=== PATIENT | male | born 1945 | race Caucasian/White ===

== ENCOUNTER 2016-04-13 10:24 | Emergency (ER) | payer MEDICAID, MEDICARE ==
[2016-04-13] VITALS (8 sets, daily range): BP systolic 96–139; BP diastolic 55–70; PULSE 51–92; RESP 15–26; TEMP 97.4; O2SAT 94–95
[~2016-04-13] VITALS: Ht 170.2 cm; Wt 65.0 kg
[~2016-04-13 10:24] MED LIST: ALBU1AER INH; ASPI81TA82 PO; BUSP10 PO; BUSP15TA PO; CALCTAB75 PO; CARV6.252 PO; DONE5TAB14 PO; HYDR50 PO; LEVO50TA48 PO; LORA-392 PO; MAGN400T PO; MELA3CAP2 PO; NALT50TA PO; PAXI30TA7 PO; REFR0.5D4 EACH EYE; SERO100T PO; SERO50TA PO; SIMV80TA PO; SPIR25 PO; TRAZ100T50 PO
[2016-04-13 10:44] LABS: MEAN CORPUSCULAR HGB CONC 36.1 % (32.0-36.0)
[2016-04-13] MEDS ORDERED: SODIUM CHLORIDE 0.9% FLUSH 5 ML FLUSH IVF PRN (10:45)
[2016-04-13] MEDS ORDERED: SODIUM CHLOR 0.9% 1000 ML INJ 1,000 ML IV ONE (10:45)
--- NOTE | 2016-04-13 10:51 | PD ---
HPI Chief Complaint: Syncope/Near-Syncope Time Seen by Provider: 10:30 Travel History International Travel<30 days: No Contact w/Intl Traveler<30days: No Traveled to known affect area: No History of Present Illness HPI This is a 70-year-old male who has a history of schizophrenia, COPD and prior CABG who presents to the emergency department having had an episode of syncope. Patient was reportedly standing with staff members at his a left this morning when he passed out. His caregiver reports that he was cool and clammy and appeared travis. The patient denies any chest pain or trouble breathing prior to the episode. He says he still feels lightheaded and dizzy. He says he's been feeling well up until today. He says this is never happened to him before. PFSH Past Medical History Hx Anticoagulant Therapy: Yes (ASPIRIN 81 MG ) Atrial Fibrillation: Yes Anxiety: Yes Depression: Yes Cardiac Catheterization: Yes Cardiovascular Problems: Yes (HTN) High Cholesterol: Yes Congestive Heart Failure: Yes COPD: Yes Coronary Artery Disease: Yes Dementia: Yes Diminished Hearing: No Gastrointestinal Disorders: Yes GERD: Yes Genitourinary: No Hepatitis: Yes Hypertension: Yes Implanted Vascular Access Dvce: No Musculoskeletal: No Neurologic: Yes (SHORT TERM MEMORY LOSS) Psychiatric: Yes (PTSD) Respiratory: Yes (HX OF FAILURE) Myocardial Infarction: Yes Schizophrenia: Yes Thyroid Disease: Yes (HYPO) Tetanus Vaccination: Unknown Influenza Vaccination: No Past Surgical History Cardiac Surgery: Yes (2009) Coronary Artery Bypass Graft: Yes (2009) Tonsillectomy: Yes Other Surgery: Yes (RIGHT HAND 5TH DIGIT AMPUTATED S/P INJURY WITH A CHAINSAW.) Social History Alcohol Use: No Tobacco Use: Yes (1/2 CIGS A DAY) Substance Use: No (LONG HX OF HUFFING) Allergies-Medications (Allergen,Severity, Reaction): Coded Allergies: Bee Sting (Verified Allergy, Unknown, 08/23/12) Reported Meds & Prescriptions Reported Meds & Active Scripts Active Reported Levothyroxine (Levothyroxine Sodium) 25 Mcg Tab 25 Mcg PO DAILY Naltrexone (Naltrexone HCl) 50 Mg Tab 50 Mg PO DAILY Ditropan (Oxybutynin Chloride) 5 Mg Tab 10 Mg PO HS Aldactone (Spironolactone) 25 Mg Tab 25 Mg PO DAILY Vistaril (Hydroxyzine Pamoate) 50 Mg Cap 50 Mg PO QID PRN Atorvastatin (Atorvastatin Calcium) 40 Mg Tab 40 Mg PO HS Colace (Docusate Sodium) 100 Mg Cap 100 Mg PO HS Risperidone 0.25 Mg Tab 0.125 Mg PO DAILY Mirtazapine 30 Mg Tab 30 Mg PO HS Risperidone 1 Mg Tab 1 Mg PO HS Donepezil 10 Mg Tab 10 Mg PO HS Trazodone (Trazodone HCl) 50 Mg Tab 50 Mg PO HS Carvedilol 3.125 Mg Tab 3.125 Mg PO BID Calcium 600 + D (Calcium Carbonate-Vitamin D) 600-400 Mg-Unit Tab 1 Tab PO BID Aspir-81 (Aspirin) 81 Mg Tabdr 81 Mg PO DAILY Proair Hfa 8.5 GM Inh (Albuterol Sulfate) 90 Mcg/Act Aer 2 Puff INH QID PRN 108 mcg/actuation Review of Systems Except as stated in HPI: all other systems reviewed are Neg Physical Exam Narrative GENERAL:Well appearing, no acute distress SKIN: Warm and dry. HEAD: Atraumatic. Normocephalic. EYES: Pupils equal and round. No injection or drainage. ENT: Moist mucous membranes NECK: Trachea midline. CARDIOVASCULAR: Regular rate and rhythm. No murmur appreciated. Midline sternotomy scar. RESPIRATORY: Clear to auscultation. Breath sounds equal bilaterally. GASTROINTESTINAL: Abdomen soft, non-tender, nondistended. MUSCULOSKELETAL: No obvious deformities. NEUROLOGICAL: Awake and alert. No obvious cranial nerve deficits. Moving all extremities. PSYCHIATRIC: Appropriate mood and affect; insight and judgment normal. Data Data Last Documented VS Vital Signs Date Time Temp Pulse Resp B/P Pulse Ox O2 Delivery O2 Flow Rate FiO2 04/13/16 10:35 Room Air 04/13/16 10:31 97.4 51 26 105/68 95 Orders Electrocardiogram (04/13/16 10:43) Complete Blood Count With Diff (04/13/16 10:43) Comprehensive Metabolic Panel (04/13/16 10:43) Troponin I (04/13/16 10:43) Urinalysis - C+S If Indicated (04/13/16 10:43) Ecg Monitoring (04/13/16 10:43) Iv Access Insert/Monitor (04/13/16 10:43) Oximetry (04/13/16 10:43) Sodium Chloride 0.9% Flush (Ns Flush) (04/13/16 10:45) D-Dimer (04/13/16 10:43) Cath For Specimen (04/13/16 10:43) Sodium Chlor 0.9% 1000 Ml Inj (Ns 1000 M (04/13/16 10:45) Urine Culture (04/13/16 12:00) Labs Laboratory Tests Test 04/13/16 04/13/16 04/13/16 11:30 12:00 15:58 White Blood Count 9.4 TH/MM3 Red Blood Count 5.30 MIL/MM3 Hemoglobin 16.9 GM/DL Hematocrit 46.8 % Mean Corpuscular Volume 88.3 FL Mean Corpuscular Hemoglobin 31.9 PG Mean Corpuscular Hemoglobin 36.1 % Concent Red Cell Distribution Width 13.6 % Platelet Count 288 TH/MM3 Mean Platelet Volume 8.2 FL Neutrophils (%) (Auto) 74.2 % Lymphocytes (%) (Auto) 12.7 % Monocytes (%) (Auto) 8.2 % Eosinophils (%) (Auto) 4.5 % Basophils (%) (Auto) 0.4 % Neutrophils # (Auto) 6.9 TH/MM3 Lymphocytes # (Auto) 1.2 TH/MM3 Monocytes # (Auto) 0.8 TH/MM3 Eosinophils # (Auto) 0.4 TH/MM3 Basophils # (Auto) 0.0 TH/MM3 CBC Comment AUTO DIFF Differential Comment AUTO DIFF CONFIRMED Platelet Estimate NORMAL Platelet Morphology Comment NORMAL Red Cell Morphology Comment NORMAL D-Dimer Quantitative (PE/DVT) 0.31 MG/L FEU Urine Color YELLOW Urine Turbidity HAZY Urine pH 6.5 Urine Specific Morrison 1.024 Urine Protein 100 mg/dL Urine Glucose (UA) TRACE mg/dL Urine Ketones NEG mg/dL Urine Occult Blood NEG Urine Nitrite NEG Urine Bilirubin NEG Urine Urobilinogen 2.0 MG/DL Urine Leukocyte Esterase NEG Urine RBC 2 /hpf Urine WBC 4 /hpf Urine WBC Clumps RARE Urine Squamous Epithelial 1 /hpf Cells Urine Renal Epithelial Cells 1 /hpf Urine Bacteria FEW /hpf Urine Hyaline Casts 69 /lpf Urine Mucus MANY /lpf Microscopic Urinalysis Comment CULTURE INDICATED Sodium Level 140 MEQ/L Potassium Level 4.3 MEQ/L Chloride Level 108 MEQ/L Carbon Dioxide Level 25.7 MEQ/L Anion Gap 6 MEQ/L Blood Urea Nitrogen 20 MG/DL Creatinine 1.01 MG/DL Estimat Glomerular Filtration 73 ML/MIN Rate Random Glucose 137 MG/DL Calcium Level 8.8 MG/DL Total Bilirubin 0.6 MG/DL Aspartate Amino Transf 23 U/L (AST/SGOT) Alanine Aminotransferase 34 U/L (ALT/SGPT) Alkaline Phosphatase 75 U/L Troponin I LESS THAN 0.02 NG/ML Total Protein 6.3 GM/DL Albumin 3.1 GM/DL MDM Medical Decision Making Medical Screen Exam Complete: Yes Emergency Medical Condition: Yes Interpretation(s) Afebrile EKG: nsr, low qrs voltage, t wave inversions in the inferior and lateral leads similar to ekg from 2013 no leukocytosis electrolytes within normal limits troponin normal d-dimer .31 urinalysis: no infection Differential Diagnosis Arrhythmia, acute coronary syndrome, pulmonary embolism, electrolyte abnormality , dehydration Narrative Course This is a 70-year-old male who presents to the emergency department having had an episode of syncope earlier today. He was placed on a monitor and an IV was established. Labs were obtained which were all reassuring. EKG is similar to prior from 2013. Troponin is negative. Patient has normal baseline neurologic exam. I don't think the patient requires admission for syncope and I think he' s safe for discharge and follow-up with an outpatient primary care physician. Diagnosis Primary Impression: Syncope Qualified Code: R55 - Syncope, unspecified syncope type Patient Instructions: General Instructions Additional Instructions: If you develop severe chest pain, shortness of breath, sweating, lightheadedness , dizziness or difficulty breathing return to the emergency department immediately. Followup with your primary care physician in 2-3 days if your symptoms are not resolved. Med/Other Pt SpecificInfo: No Change to Meds Disposition: 01 DISCHARGE HOME Condition: Stable Ariana Navarro MD Apr 13, 2016 10:51
[2016-04-13 11:46] LABS: AUTOMATED NEUTROPHIL # 6.9 TH/MM3 (1.8-7.7); BASOPHIL % 0.4 % (0.0-2.0); EOSINOPHIL # 0.4 TH/MM3 (0-0.4); EOSINOPHIL % 4.5 % (0.0-4.0); HEMATOCRIT 46.8 % (39.0-51.0); LYMPH % 12.7 % (9.0-44.0); LYMPHOCYTE # 1.2 TH/MM3 (1.0-4.8); MEAN CELL VOLUME 88.3 FL (80.0-100.0); MEAN CORPUSCULAR HEMOGLOBIN 31.9 PG (27.0-34.0); MONO % 8.2 % (0.0-8.0); NEUT % 74.2 % (16.0-70.0); PLATELET COUNT 288 TH/MM3 (150-450); RED CELL DISTRIBUTION WIDTH 13.6 % (11.6-17.2); WHITE BLOOD COUNT 9.4 TH/MM3 (4.0-11.0)
[2016-04-13 11:47] LABS: HEMO FLAGS AUTO DIFF
[2016-04-13 12:22] LABS: BACTERIA, URINE FEW /hpf; BLOOD, URINE NEG (NEG); GLUCOSE,URINE TRACE mg/dL (NEG); HYALINE CAST, URINE 69 /lpf (RARE); KETONE, URINE NEG (NEG); MUCUS URINE MANY /lpf (OCC); NITRITE,URINE NEG (NEG); PH, URINE 6.5 (5.0-8.5); RENAL EPITHELIAL CELLS 1 /hpf; SQUAMOUS EPITHELIAL CELL URINE 1 /hpf (0-5); URINE COLOR YELLOW (YELLW/STRAW)
[2016-04-13 12:23] LABS: COMMENT (UR) CULTURE INDICATED; CULTURE IF INDICATED CULTURE INDICATED
[2016-04-13 12:29] LABS: PLATELET ESTIMATE SMEAR NORMAL (NORMAL)
[2016-04-13 12:30] LABS: PLATELET MORPHOLOGY NORMAL (NORMAL); SCAN/DIFF AUTO DIFF CONFIRMED
[2016-04-13] MEDS ORDERED: DONE10TA7 PO (13:06)
[2016-04-13] MEDS ORDERED: ATOR40TA16 PO (13:06)
[2016-04-13] MEDS ORDERED: NALT50TA3 PO (13:06)
[2016-04-13] MEDS ORDERED: OXYB5TAB10 PO (13:06)
[2016-04-13] MEDS ORDERED: RISP1TAB2 PO (13:06)
[2016-04-13] MEDS ORDERED: CARV3.12 PO (13:06)
[2016-04-13] MEDS ORDERED: ASPI81TA81 PO (13:06)
[2016-04-13] MEDS ORDERED: VIST50CA PO (13:06)
[2016-04-13] MEDS ORDERED: MIRT30TA PO (13:06)
[2016-04-13] MEDS ORDERED: RISP0.252 PO (13:06)
[2016-04-13] MEDS ORDERED: COLA100C3 PO (13:06)
[2016-04-13] MEDS ORDERED: CALCTAB70 PO (13:06)
[2016-04-13] MEDS ORDERED: TRAZ50TA12 PO (13:06)
[2016-04-13] MEDS ORDERED: ALBUAER3 INH (13:06)
[2016-04-13] MEDS ORDERED: SPIR25 PO (13:06)
[2016-04-13] MEDS ORDERED: LEVO25TA4 PO (13:07)
[2016-04-13 16:42] LABS: ANION GAP 6 MEQ/L (5-15); AST (GOT) 23 U/L (15-37); BICARBONATE 25.7 MEQ/L (21.0-32.0); BLOOD UREA NITROGEN 20 MG/DL (7-18); CHLORIDE 108 MEQ/L (98-107); GLOMERULAR FILTRATION RATE 73 ML/MIN (>89); POTASSIUM 4.3 MEQ/L (3.5-5.1); SODIUM (NA) 140 MEQ/L (136-145)
[2016-04-13 16:46] LABS: ALKALINE PHOSPHATASE 75 U/L (45-117); ALT (GPT) 34 U/L (12-78); TOTAL BILIRUBIN ADULT 0.6 MG/DL (0.2-1.0)
--- NOTE | 2016-04-14 20:50 | EKG ---
Date Performed: 04/13/2016 Time Performed: 11:39:54 PTAGE: 70 years EKG: Sinus rhythm LOW QRS VOLTAGE IN PRECORDIAL LEADS SEPTAL MYOCARDIAL INFARCTION DIFFUSE ST-T ABNORMALITY ABNORMAL E CG PREVIOUS TRACING : 08/23/2012 13.32 Compared to prior tracing no significant change DOCTOR: Aishwarya Edge Interpretating Date/Time 04/14/2016 20:48:59
== END 2016-04-13 18:25 | disposition home or self-care (01) ==
LOC: NEPC 10:24
DX: R55 Syncope and collapse (principal); R94.31 Abnormal electrocardiogram [ECG] [EKG]; I48.91 Unspecified atrial fibrillation; I10 Essential (primary) hypertension; E78.00 Pure hypercholesterolemia, unspecified; R82.90 Unspecified abnormal findings in urine; I50.9 Heart failure, unspecified; Z72.0 Tobacco use; Z79.01 Long term (current) use of anticoagulants
CPT/HCPCS: 80053; 81001; 84484; 85025; 85379; 87086; 93005; 96360; 99284; J7030; P9612

== ENCOUNTER 2016-09-22 14:49 | Emergency (ER) | payer MEDICARE ==
[~2016-09-22] VITALS: Ht 170.2 cm; Wt 70.0 kg
[~2016-09-22 14:49] MED LIST changes: -ALBU1AER INH; +ALBUAER3 INH; +ASPI81TA81 PO; -ASPI81TA82 PO; +ATOR40TA16 PO; -BUSP10 PO; -BUSP15TA PO; +CALCTAB70 PO; -CALCTAB75 PO; +CARV3.12 PO; -CARV6.252 PO; +COLA100C3 PO; +DONE10TA7 PO; -DONE5TAB14 PO; -HYDR50 PO; +LEVO25TA4 PO; -LEVO50TA48 PO; -LORA-392 PO; -MAGN400T PO; -MELA3CAP2 PO; +MIRT30TA PO; -NALT50TA PO; +NALT50TA3 PO; +OXYB5TAB10 PO; -PAXI30TA7 PO; -REFR0.5D4 EACH EYE; +RISP0.252 PO; +RISP1TAB2 PO; -SERO100T PO; -SERO50TA PO; -SIMV80TA PO; -TRAZ100T50 PO; +TRAZ50TA12 PO; +VIST50CA PO
[2016-09-22 14:51] VITALS: BP 144/80; PULSE 65; RESP 19; TEMP 97.8; O2SAT 97
--- NOTE | 2016-09-22 14:59 | PD ---
Physical Exam Date Seen by Provider: Sep 22, 2016 Time Seen by Provider: 14:57 Narrative 70 yo male that presents to the ED for evaluation of shortness of breath. No history of respiratory disease. SOB since 1 pm. Nothing makes it better other than rest. Worst with excertion. Vitals are stable in triage. Awaiting bed placement. Data Data Last Documented VS Vital Signs Date Time Temp Pulse Resp B/P Pulse Ox O2 Delivery O2 Flow Rate FiO2 09/22/16 14:51 97.8 65 19 144/80 97 MDM Medical Record Reviewed: Yes Supervised Visit with DANICA: Alonso Barros Sep 22, 2016 14:59
--- NOTE | 2016-09-22 15:17 | PD ---
HPI Chief Complaint: Respiratory Symptoms Time Seen by Provider: 15:17 Travel History International Travel<30 days: No Contact w/Intl Traveler<30days: No Traveled to known affect area: No History of Present Illness HPI 70-year-old male with history of dementia, CHF, CAD, CABG, A. fib, COPD, schizophrenia, presents to the emergency department today with his caregiver for evaluation shortness of breath. Patient offers a poor history. She denies pain. His caregiver says around 1:00 today he began reporting shortness of breath and "gasping." Currently patient is asymptomatic. Denies any pain. She states patient has been overall well. He takes his medication as prescribed. She states there are no other symptoms or concerns at this time. PFSH Past Medical History Hx Anticoagulant Therapy: Yes (ASPIRIN 81 MG ) Atrial Fibrillation: Yes Anxiety: Yes Depression: Yes Cardiac Catheterization: Yes Cardiovascular Problems: Yes High Cholesterol: Yes Congestive Heart Failure: Yes COPD: Yes Coronary Artery Disease: Yes Dementia: Yes Diminished Hearing: No Gastrointestinal Disorders: Yes GERD: Yes Genitourinary: No Hepatitis: Yes Hypertension: Yes Implanted Vascular Access Dvce: No Musculoskeletal: No Neurologic: Yes (SHORT TERM MEMORY LOSS) Psychiatric: Yes (PTSD) Respiratory: Yes (HX OF FAILURE) Myocardial Infarction: Yes Schizophrenia: Yes Thyroid Disease: Yes (HYPO) Past Surgical History Cardiac Surgery: Yes (2009) Coronary Artery Bypass Graft: Yes (2009) Tonsillectomy: Yes Other Surgery: Yes (RIGHT HAND 5TH DIGIT AMPUTATED S/P INJURY WITH A CHAINSAW.) Social History Alcohol Use: No Tobacco Use: Yes (1/2 CIGS A DAY) Substance Use: No (LONG HX OF HUFFING) Allergies-Medications (Allergen,Severity, Reaction): Coded Allergies: Bee Sting (Verified Allergy, Unknown, 08/23/12) Reported Meds & Prescriptions Reported Meds & Active Scripts Active Nebulizer/Adult Mask (N/A) 1 Kit Kit 1 Kit .ROUTE DIRECTED Duoneb (Ipratropium-Albuterol Neb) 0.5-2.5 Mg/3 Ml Neb 1 Nebule INH Q6HR NEB Doxycycline Hyclate 100 Mg Cap 100 Mg PO BID Prednisone 50 Mg Tab 50 Mg PO DAILY 5 Days Reported Levothyroxine (Levothyroxine Sodium) 25 Mcg Tab 25 Mcg PO DAILY Naltrexone (Naltrexone HCl) 50 Mg Tab 50 Mg PO DAILY Ditropan (Oxybutynin Chloride) 5 Mg Tab 10 Mg PO HS Aldactone (Spironolactone) 25 Mg Tab 25 Mg PO DAILY Vistaril (Hydroxyzine Pamoate) 50 Mg Cap 50 Mg PO QID PRN Atorvastatin (Atorvastatin Calcium) 40 Mg Tab 40 Mg PO HS Colace (Docusate Sodium) 100 Mg Cap 100 Mg PO HS Risperidone 0.25 Mg Tab 0.125 Mg PO DAILY Mirtazapine 30 Mg Tab 30 Mg PO HS Risperidone 1 Mg Tab 1 Mg PO HS Donepezil 10 Mg Tab 10 Mg PO HS Trazodone (Trazodone HCl) 50 Mg Tab 50 Mg PO HS Carvedilol 3.125 Mg Tab 3.125 Mg PO BID Calcium 600 + D (Calcium Carbonate-Vitamin D) 600-400 Mg-Unit Tab 1 Tab PO BID Aspir-81 (Aspirin) 81 Mg Tabdr 81 Mg PO DAILY Proair Hfa 8.5 GM Inh (Albuterol Sulfate) 90 Mcg/Act Aer 2 Puff INH QID PRN 108 mcg/actuation Review of Systems ROS Limitations: Poor Historian Except as stated in HPI: all other systems reviewed are Neg Physical Exam Exam Limitations: Poor Historian Narrative GENERAL: Well-nourished male patient, lying in bed, in no acute distress SKIN: Focused skin assessment warm/dry. HEAD: Atraumatic. Normocephalic. EYES: Pupils equal and round. No scleral icterus. No injection or drainage. ENT: No nasal bleeding or discharge. Mucous membranes pink and moist. NECK: Trachea midline. No JVD. CARDIOVASCULAR: Regular rate and rhythm. No murmur appreciated. RESPIRATORY: No accessory muscle use. Diminished to auscultation. Breath sounds equal bilaterally. GASTROINTESTINAL: Abdomen soft, non-tender, nondistended. Hepatic and splenic margins not palpable. MUSCULOSKELETAL: No obvious deformities. No clubbing. No cyanosis. No edema. NEUROLOGICAL: Awake and alert. Moves all extremities. Speech is difficult to understand. Data Data Last Documented VS Vital Signs Date Time Temp Pulse Resp B/P Pulse Ox O2 Delivery O2 Flow Rate FiO2 09/22/16 17:01 68 18 122/70 97 Room Air 09/22/16 14:51 97.8 Orders Complete Blood Count With Diff (09/22/16 15:23) Basic Metabolic Panel (Bmp) (09/22/16 15:23) B-Type Natriuretic Peptide (09/22/16 15:23) D-Dimer (09/22/16 15:23) Act Partial Throm Time (Ptt) (09/22/16 15:23) Prothrombin Time / Inr (Pt) (09/22/16 15:23) Ckmb (Isoenzyme) Profile (09/22/16 15:23) Troponin I (09/22/16 15:23) Urinalysis - C+S If Indicated (09/22/16 15:23) Iv Access Insert/Monitor (09/22/16 15:23) Electrocardiogram (09/22/16 15:23) Ecg Monitoring (09/22/16 15:23) Oximetry (09/22/16 15:23) Oxygen Administration (09/22/16 15:23) Chest, Single Ap (09/22/16 15:23) Sodium Chloride 0.9% Flush (Ns Flush) (09/22/16 15:30) Methylprednisolone So Succ Inj (Solumedr (09/22/16 15:30) Albuterol-Ipratropium Neb (Duoneb Neb) (09/22/16 15:30) Vascular Access Team Consult/P PRN (09/22/16 16:09) Vascular Poc Ultrasound (09/22/16 ) CKMB (09/22/16 16:15) CKMB% (09/22/16 16:15) Ct Pulmonary Angiogram (09/22/16 ) Iohexol 350 Inj (Omnipaque 350 Inj) (09/22/16 18:13) Labs Laboratory Tests Test 09/22/16 16:15 White Blood Count 9.8 TH/MM3 Red Blood Count 5.47 MIL/MM3 Hemoglobin 16.3 GM/DL Hematocrit 47.4 % Mean Corpuscular Volume 86.6 FL Mean Corpuscular Hemoglobin 29.8 PG Mean Corpuscular Hemoglobin 34.4 % Concent Red Cell Distribution Width 13.8 % Platelet Count 282 TH/MM3 Mean Platelet Volume 8.4 FL Neutrophils (%) (Auto) 56.9 % Lymphocytes (%) (Auto) 27.0 % Monocytes (%) (Auto) 10.9 % Eosinophils (%) (Auto) 4.4 % Basophils (%) (Auto) 0.8 % Neutrophils # (Auto) 5.6 TH/MM3 Lymphocytes # (Auto) 2.6 TH/MM3 Monocytes # (Auto) 1.1 TH/MM3 Eosinophils # (Auto) 0.4 TH/MM3 Basophils # (Auto) 0.1 TH/MM3 CBC Comment DIFF FINAL Differential Comment Prothrombin Time 11.4 SEC Prothromb Time International 1.0 RATIO Ratio Activated Partial 29.1 SEC Thromboplast Time D-Dimer Quantitative (PE/DVT) 0.65 MG/L FEU Sodium Level 137 MEQ/L Potassium Level 5.6 MEQ/L Chloride Level 105 MEQ/L Carbon Dioxide Level 27.3 MEQ/L Anion Gap 5 MEQ/L Blood Urea Nitrogen 18 MG/DL Creatinine 1.18 MG/DL Estimat Glomerular Filtration 61 ML/MIN Rate Random Glucose 119 MG/DL Calcium Level 9.2 MG/DL Total Creatine Kinase 142 U/L Creatine Kinase MB 0.6 NG/ML Troponin I LESS THAN 0.02 NG/ML B-Type Natriuretic Peptide 22 PG/ML MDM Medical Decision Making Medical Screen Exam Complete: Yes Emergency Medical Condition: Yes Medical Record Reviewed: Yes Differential Diagnosis Pneumonia versus COPD exacerbation versus CHF versus PE Narrative Course 70-year-old male presents to emergency department for evaluation shortness of breath. Patient appears without distress at this time. He is denying any pain. Vital signs are stable. CBC is without acute concern. BMP is also without acute concern. There is a hyperkalemia 5.6 but hemolysis is noted. Troponins less than 0.02. BNP is 22. D-dimer is elevated at 0.65. CT pulmonary angiogram is complete and shows no pulmonary embolus however there is bibasilar probable atelectasis. Pleural thickening mainly involving the posterior and lateral left chest. I discussed the patient my attending physician who recommends oral antibiotics and steroids. This is discussed with the patient and his caregiver. She agrees to follow-up with his primary care provider and return immediately with any acute worsening symptoms. Diagnosis Primary Impression: Shortness of breath Additional Impression: Pleural thickening Referrals: Primary Care Physician Aquatics Director Patient Instructions: Dyspnea (ED), General Instructions Additional Instructions: It is important that you cough and take deep breaths Follow-up with her primary care provider Return immediately to the emergency department with any acute worsening of symptoms Med/Other Pt SpecificInfo: Prescription(s) given Scripts Nebulizer/Adult Mask 1 Kit Kit #1 KIT .ROUTE DIRECTED Ref 0 Prov:Divine Banuelos 09/22/16 Ipratropium-Albuterol Neb (Duoneb)0.5-2.5 Mg/3 Ml Neb1 Nebule INH Q6HR NEB # 120 NEBULE Ref 0 Prov:Divine Banuelos 09/22/16 Doxycycline Hyclate 100 Mg [id number] Mg PO BID #20 CAP Ref 0 Prov:Divine Banuelos 09/22/16 Prednisone 50 Mg Tab50 Mg PO DAILY 5 Days Ref 0 Prov:Divine Banuelos 09/22/16 Disposition: 01 DISCHARGE HOME Condition: Stable Divine Banuelos Sep 22, 2016 15:17
[2016-09-22] MEDS ORDERED: SODIUM CHLORIDE 0.9% FLUSH 10 ML FLUSH IVF PRN (15:30)
[2016-09-22] MEDS ORDERED: methylPREDNISolone SOD SUCC 125 MG/2 ML VIAL IVP ONE (15:30)
[2016-09-22] MEDS: RESP: ALBUTEROL 2.5 MG/IPRATROPIUM 0.5 MG NEB (SCH) INH ×2 (15:36→15:37)
[2016-09-22 16:48] LABS: AUTOMATED NEUTROPHIL # 5.6 TH/MM3 (1.8-7.7); BASOPHIL # 0.1 TH/MM3 (0-0.2); BASOPHIL % 0.8 % (0.0-2.0); EOSINOPHIL # 0.4 TH/MM3 (0-0.4); EOSINOPHIL % 4.4 % (0.0-4.0); HEMATOCRIT 47.4 % (39.0-51.0); HEMO FLAGS DIFF FINAL; LYMPHOCYTE # 2.6 TH/MM3 (1.0-4.8); MEAN CELL VOLUME 86.6 FL (80.0-100.0); MEAN CORPUSCULAR HEMOGLOBIN 29.8 PG (27.0-34.0); MEAN CORPUSCULAR HGB CONC 34.4 % (32.0-36.0); MONO % 10.9 % (0.0-8.0); NEUT % 56.9 % (16.0-70.0); PLATELET COUNT 282 TH/MM3 (150-450); RED BLOOD COUNT 5.47 MIL/MM3 (4.50-5.90); RED CELL DISTRIBUTION WIDTH 13.8 % (11.6-17.2); WHITE BLOOD COUNT 9.8 TH/MM3 (4.0-11.0)
[2016-09-22 16:58] LABS: APTT (PATIENT) 29.1 SEC (24.3-30.1); PROTHROMBIN TIME - PATIENT 11.4 SEC (9.8-11.6)
[2016-09-22 17:01] VITALS: BP 122/70; PULSE 68; RESP 18; O2SAT 97
[2016-09-22 17:07] LABS: ANION GAP 5 MEQ/L (5-15); BICARBONATE 27.3 MEQ/L (21.0-32.0); BLOOD UREA NITROGEN 18 MG/DL (7-18); CHLORIDE 105 MEQ/L (98-107); CREATINE KINASE 142 U/L (39-308); GLOMERULAR FILTRATION RATE 61 ML/MIN (>89); SODIUM (NA) 137 MEQ/L (136-145)
[2016-09-22 17:08] LABS: POTASSIUM 5.6 MEQ/L (3.5-5.1)
--- NOTE | 2016-09-22 17:09 | RADRPT ---
EXAM DATE/TIME: 09/22/2016 17:00 [facility] COMPARISON: No previous studies available for comparison. INDICATIONS : Shortness of breath. MEDICAL HISTORY : None. SURGICAL HISTORY : CABG. ENCOUNTER: Initial ACUITY: 1 day PAIN SCORE: 10/10 LOCATION: chest FINDINGS: There is evidence for previous bypass with mild concentric cardiomegaly and abandoned right ventricul ar lead. There is elevation of the right hemidiaphragm. The lungs are clear. The portion of the bon y skeleton visualized is unremarkable. CONCLUSION: Postoperative changes as described above without overt congestive failure. Travis Boucher MD FACR on September 22, 2016 at 17:06 Board Certified Radiologist. This report was verified electronically.
[2016-09-22 17:21] LABS: CKMB 0.6 NG/ML (0.5-3.6)
[2016-09-22] MEDS ORDERED: IOHEXOL 350 MG/ML 10 ML VIAL (for RAD DIAG) IV ONE (18:13)
--- NOTE | 2016-09-22 18:22 | RADRPT ---
EXAM DATE/TIME: 09/22/2016 18:04 [facility] COMPARISON: No previous studies available for comparison. INDICATIONS : Patient with shortness of breath, evaluate for embolus. IV CONTRAST: 50 cc Omnipaque 350 (iohexol) IV RADIATION DOSE: 24.93 CTDIvol (mGy) MEDICAL HISTORY : Hypertension. Cardiovascular disease Chronic obstructive pulmonary disease.A-fib SURGICAL HISTORY : CABG ENCOUNTER: Initial ACUITY: 1 day PAIN SCALE: 5/10 LOCATION: chest TECHNIQUE: Volumetric scanning of the chest was performed using a pulmonary embolism protocol MIP images were re constructed. Using automated exposure control and adjustment of the mA and/or kV according to patien t size, radiation dose was kept as low as reasonably achievable to obtain optimal diagnostic quality images. DICOM format image data is available electronically for review and comparison. FINDINGS: The study is mildly degraded by respiratory motion. PULMONARY ARTERIES: No filling defects are seen in the pulmonary arteries through the segmental level. LUNGS: Is mild probable atelectasis in the lung bases bilaterally. PLEURAE: There is posterior and lateral pleural thickening in the mid and lower chest on the left. MEDIASTINUM: There is good visualization of the great vessels of the middle mediastinum. No evidence of mediastin al or hilar adenopathy/mass. MUSCULOSKELETAL: Within normal limits for patient age. MISCELLANEOUS: The visualized upper abdominal organs demonstrate no acute abnormality. CONCLUSION: No evidence of pulmonary embolism. Bibasilar probable atelectasis. Pleural thickening mainly involvin g posterior and lateral left chest. Ildefonso Bowie MD on September 22, 2016 at 18:16 Board Certified Radiologist. This report was verified electronically.
[2016-09-22] MEDS ORDERED: PRED50 PO (18:49)
[2016-09-22] MEDS ORDERED: DOXY100C PO (18:49)
[2016-09-22] MEDS ORDERED: IPRASOL INH (18:50)
[2016-09-22] MEDS ORDERED: NEBULIZER/ADULT1 KIT ×3 (18:51→18:54)
--- NOTE | 2016-09-23 08:02 | EKG ---
Date Performed: 09/22/2016 Time Performed: 15:39:57 PTAGE: 70 years EKG: SINUS BRADYCARDIA SEPTAL MYOCARDIAL INFARCTION MODERATE T-WAVE ABNORMALITY, CONSIDER LATERA L ISCHEMIA ABNORMAL ECG PREVIOUS TRACING : 04/13/2016 11.39 DOCTOR: Cristi Maria Interpretating Date/Time 09/23/2016 07:57:39
== END 2016-09-22 19:13 | disposition home or self-care (01) ==
LOC: NEPC 14:49
DX: R06.02 Shortness of breath (principal); J92.9 Pleural plaque without asbestos; E87.5 Hyperkalemia; F03.90 Unspecified dementia, unspecified severity, without behavioral disturbance, psychotic disturbance, mood disturbance, and anxiety; I50.9 Heart failure, unspecified; I25.10 Atherosclerotic heart disease of native coronary artery without angina pectoris; I48.91 Unspecified atrial fibrillation; J44.9 Chronic obstructive pulmonary disease, unspecified; F20.9 Schizophrenia, unspecified; I10 Essential (primary) hypertension
CPT/HCPCS: 71010; 71275; 80048; 82550; 82552; 83880; 84484; 85025; 85379; 85610; 85730; 93005; 94640; 94664; 96374; 99285; J2930; Q9967

== ENCOUNTER 2017-05-10 12:56 | Inpatient (IN) | payer MEDICARE ==
[~2017-05-10] VITALS: Ht 172.7 cm; Wt 63.6 kg
[2017-05-10] VITALS (9 sets, daily range): BP systolic 105–142; BP diastolic 61–88; PULSE 67–86; RESP 15–20; TEMP 97.1–97.9; O2SAT 97–99
[~2017-05-10 12:56] MED LIST changes: +DOXY100C PO; +IPRASOL INH; +NEBULIZER/ADULT1 KIT; -OXYB5TAB10 PO; +OXYB5TAB8 PO; +PRED50 PO
[2017-05-10] MEDS ORDERED: SODIUM CHLORIDE 0.9% FLUSH 10 ML FLUSH IVF PRN (13:15)
--- NOTE | 2017-05-10 13:19 | PD ---
HPI Chief Complaint: facial droop and drooling Time Seen by Provider: 13:06 Travel History International Travel<30 days: No Contact w/Intl Traveler<30days: No Traveled to known affect area: No History of Present Illness HPI This patient is a resident of assisted living. He does have mild dementia. He is brought in for evaluation of lethargy and decreased mental status. He was last seen normal yesterday. Today he has a left-sided facial droop and is drooling out of the left side of his face according to the accounts payable administrator of the assisted-living facility he is at. Patient himself cannot provide any useful history or review of systems. He is demented and lethargic. No head injury reported. No fever or vomiting or diarrhea. He was moderately severe. No alleviating factors. No exacerbating factors. Duration one day PFSH Past Medical History Hx Anticoagulant Therapy: Yes (ASPIRIN 81 MG ) Atrial Fibrillation: Yes Anxiety: Yes Depression: Yes Cardiac Catheterization: Yes Cardiovascular Problems: Yes High Cholesterol: Yes Congestive Heart Failure: Yes COPD: Yes Coronary Artery Disease: Yes Dementia: Yes Diabetes: No Diminished Hearing: No Gastrointestinal Disorders: Yes GERD: Yes Genitourinary: No Hepatitis: Yes Hypertension: Yes Implanted Vascular Access Dvce: No Musculoskeletal: No Neurologic: Yes (SHORT TERM MEMORY LOSS) Psychiatric: Yes (PTSD) Respiratory: Yes (HX OF FAILURE) Myocardial Infarction: Yes Schizophrenia: Yes Thyroid Disease: Yes (HYPO) Past Surgical History Cardiac Surgery: Yes (2009) Coronary Artery Bypass Graft: Yes (2009) Tonsillectomy: Yes Other Surgery: Yes (RIGHT HAND 5TH DIGIT AMPUTATED S/P INJURY WITH A CHAINSAW.) Social History Alcohol Use: No Tobacco Use: No Substance Use: No (LONG HX OF HUFFING) Allergies-Medications (Allergen,Severity, Reaction): Coded Allergies: bee venom protein (honey bee) (Unverified Allergy, Unknown, 11/09/16) Reported Meds & Prescriptions Reported Meds & Active Scripts Active Reported Albuterol Neb (Albuterol Sulfate) 2.5 Mg/3 Ml Neb 2.5 Mg NEB BID PRN Magnesium Oxide 400 Mg Tab 400 Mg PO DAILY Colace (Docusate Sodium) 100 Mg Capsule 100 Mg PO HS Calcium 600 + Vit D 400 Softgl (Calcium Carbonate/Vitamin D3) 600 Mg-400 Capsule 1 Cap PO BID Risperidone 4 Mg Tab 2 Mg PO HS Trazodone (Trazodone HCl) 100 Mg Tablet 100 Mg PO HS Levothyroxine (Levothyroxine Sodium) 25 Mcg Tab 25 Mcg PO DAILY Ditropan (Oxybutynin Chloride) 5 Mg Tab 5 Mg PO BID Aldactone (Spironolactone) 25 Mg Tab 25 Mg PO DAILY Atorvastatin (Atorvastatin Calcium) 40 Mg Tab 20 Mg PO HS Donepezil 10 Mg Tab 10 Mg PO HS Aspir-81 (Aspirin) 81 Mg Tabdr 81 Mg PO DAILY Review of Systems General / Constitutional: No: Fever Eyes: No: Visual changes HENT: No: Headaches Cardiovascular: No: Chest Pain or Discomfort Respiratory: No: Shortness of Breath Gastrointestinal: No: Abdominal Pain Genitourinary: No: Dysuria Musculoskeletal: No: Pain Skin: No Rash Neurologic: Positive: Change in Mentation, No: Weakness Psychiatric: No: Depression Endocrine: No: Polydipsia Hematologic/Lymphatic: No: Easy Bruising Physical Exam Narrative GENERAL: Thin elderly well-developed patient with lethargy . SKIN: Focused skin assessment reveals no rash and nodules. Skin is Warm and dry. HEAD: Atraumatic. Normocephalic. EYES: Pupils equal and pinpoint. No scleral icterus. No injection or drainage. ENT: No nasal bleeding or discharge. Mucous membranes pink and moist. NECK: Trachea midline. No JVD. CARDIOVASCULAR: Regular rate and rhythm. No murmur appreciated. RESPIRATORY: No accessory muscle use. Clear to auscultation. Breath sounds equal bilaterally. GASTROINTESTINAL: Abdomen soft, non-tender, nondistended. Hepatic and splenic margins not palpable. MUSCULOSKELETAL: No obvious deformities. No clubbing. No cyanosis. No edema. NEUROLOGICAL: Awake but drowsy and drooling out of the right side of his mouth. Has left-sided facial droop. Motor grossly within normal limits. He is nonverbal. Follows commands PSYCHIATRIC: Appropriate mood and flat affect; insight and judgment poor . Data Data Last Documented VS Vital Signs Date Time Temp Pulse Resp B/P (MAP) Pulse Ox O2 Delivery O2 Flow Rate FiO2 05/10/17 16:07 97.7 73 16 136/88 (104) 99 05/10/17 15:00 Room Air Orders Orders Electrocardiogram (05/10/17 13:14) Prothrombin Time / Inr (Pt) (05/10/17 13:14) Act Partial Throm Time (Ptt) (05/10/17 13:14) Complete Blood Count With Diff (05/10/17 13:14) Basic Metabolic Panel (Bmp) (05/10/17 13:14) Ct Brain W/O Iv Contrast(Rout) (05/10/17 13:14) Ecg Monitoring (05/10/17 13:14) Iv Access Insert/Monitor (05/10/17 13:14) Oximetry (05/10/17 13:14) Blood Glucose (05/10/17 13:14) Sodium Chloride 0.9% Flush (Ns Flush) (05/10/17 13:15) Labs Laboratory Tests Test 05/10/17 13:02 White Blood Count 9.8 TH/MM3 Red Blood Count 5.20 MIL/MM3 Hemoglobin 16.6 GM/DL Hematocrit 48.1 % Mean Corpuscular Volume 92.6 FL Mean Corpuscular Hemoglobin 31.9 PG Mean Corpuscular Hemoglobin Concent 34.5 % Red Cell Distribution Width 13.3 % Platelet Count 267 TH/MM3 Mean Platelet Volume 8.5 FL Neutrophils (%) (Auto) 71.4 % Lymphocytes (%) (Auto) 13.7 % Monocytes (%) (Auto) 11.4 % Eosinophils (%) (Auto) 2.7 % Basophils (%) (Auto) 0.8 % Neutrophils # (Auto) 7.0 TH/MM3 Lymphocytes # (Auto) 1.3 TH/MM3 Monocytes # (Auto) 1.1 TH/MM3 Eosinophils # (Auto) 0.3 TH/MM3 Basophils # (Auto) 0.1 TH/MM3 CBC Comment DIFF FINAL Differential Comment Prothrombin Time 11.0 SEC Prothromb Time International Ratio 1.1 RATIO Activated Partial Thromboplast Time 27.2 SEC Blood Urea Nitrogen 15 MG/DL Creatinine 0.97 MG/DL Random Glucose 78 MG/DL Calcium Level 9.5 MG/DL Sodium Level 137 MEQ/L Potassium Level 5.3 MEQ/L Chloride Level 105 MEQ/L Carbon Dioxide Level 27.3 MEQ/L Anion Gap 5 MEQ/L Estimat Glomerular Filtration Rate 77 ML/MIN MDM Medical Decision Making Medical Screen Exam Complete: Yes Emergency Medical Condition: Yes Medical Record Reviewed: Yes Differential Diagnosis Ischemic stroke, hemorrhagic stroke, TIA Narrative Course I have reviewed the patient's electronic medical record. Patient's been here for substance problems in the past. I reviewed his facility Medication list and records 1318: I evaluated the patient. He may be having stroke versus medication side effects. CVA workup ordered I reviewed his EKG which shows sinus arrhythmia Brain CT shows no hemorrhage Labs recently normal except for minor hypokalemia which is hemolyzed moderately At this point and getting him admitted and discussing it with the hospitalist His facial droop seems improved at this time and he is not drooling so this may returned item clerk to be a TIA Diagnosis Primary Impression: Neurologic deficit due to acute ischemic cerebrovascular accident (CVA) Admitting Information Admitting Physician Requests: Admit Matthew Bassett MD May 10, 2017 13:19
[2017-05-10] MEDS ORDERED: RISP4TAB2 PO (13:31)
[2017-05-10] MEDS ORDERED: COLA100C5 PO (13:31)
[2017-05-10] MEDS ORDERED: MAGN400T2 PO (13:31)
[2017-05-10] MEDS ORDERED: CALC600C3 PO (13:31)
[2017-05-10] MEDS ORDERED: TRAZ100T10 PO (13:31)
[2017-05-10] MEDS ORDERED: ALBU0.08 NEB (13:31)
[2017-05-10 13:47] LABS: BASOPHIL # 0.1 TH/MM3 (0-0.2); BASOPHIL % 0.8 % (0.0-2.0); EOSINOPHIL # 0.3 TH/MM3 (0-0.4); EOSINOPHIL % 2.7 % (0.0-4.0); HEMATOCRIT 48.1 % (39.0-51.0); HEMOGLOBIN 16.6 GM/DL (13.0-17.0); LYMPH % 13.7 % (9.0-44.0); LYMPHOCYTE # 1.3 TH/MM3 (1.0-4.8); MEAN CELL VOLUME 92.6 FL (80.0-100.0); MEAN CORPUSCULAR HEMOGLOBIN 31.9 PG (27.0-34.0); MEAN CORPUSCULAR HGB CONC 34.5 % (32.0-36.0); MEAN PLATELET VOLUME 8.5 FL (7.0-11.0); MONO % 11.4 % (0.0-8.0); MONOCYTE # 1.1 TH/MM3 (0-0.9); NEUT % 71.4 % (16.0-70.0); PLATELET COUNT 267 TH/MM3 (150-450); RED CELL DISTRIBUTION WIDTH 13.3 % (11.6-17.2); WHITE BLOOD COUNT 9.8 TH/MM3 (4.0-11.0)
[2017-05-10 13:58] LABS: INTERNATIONAL NORMALIZED RATIO 1.1 RATIO
[2017-05-10 14:21] LABS: BICARBONATE 27.3 MEQ/L (21.0-32.0); CALCIUM 9.5 MG/DL (8.5-10.1); CREATININE 0.97 MG/DL (0.60-1.30)
--- NOTE | 2017-05-10 15:10 | RADRPT ---
EXAM DATE/TIME: 05/10/2017 14:58 [facility] COMPARISON: CT BRAIN W/O CONTRAST, June 10, 2012, 13:50. INDICATIONS : Confusion, possible CVA. RADIATION DOSE: 56.35 CTDIvol (mGy) MEDICAL HISTORY : Dementia. Cardiovascular disease Hypertension.COPD, Hepititis. SURGICAL HISTORY : None. ENCOUNTER: Initial ACUITY: 1 day PAIN SCALE: Non-responsive LOCATION: Bilateral cranial TECHNIQUE: Multiple contiguous axial images were obtained of the head. Using automated exposure control and adj ustment of the mA and/or kV according to patient size, radiation dose was kept as low as reasonably a chievable to obtain optimal diagnostic quality images. DICOM format image data is available electro nically for review and comparison. FINDINGS: CEREBRUM: Supratentorial and infratentorial atrophy. Extensive periventricular low attenuation change involving both cerebral hemispheres. Low signal change within the central portion of the autumn. The ventricles are normal for age. No evidence of midline shift, mass lesion, hemorrhage or acute infarction. No e xtra-axial fluid collections are seen. POSTERIOR FOSSA: The cerebellum and brainstem are intact. The 4th ventricle is midline. The cerebellopontine angle i s unremarkable. EXTRACRANIAL: The visualized portion of the orbits is intact. SKULL: The calvaria is intact. No evidence of skull fracture. CONCLUSION: 1. No acute intracranial abnormality. 2. Extensive chronic small vessel ischemic change and wallerian degeneration. 3. Atrophy. Alexis Hoskins Jr., MD on May 10, 2017 at 15:05 Board Certified Radiologist. This report was verified electronically.
[2017-05-10] MEDS ORDERED: DEXTROSE 50% IN WATER 50 ML VIAL(D50) IV PUSH PRN (16:45)
[2017-05-10] MEDS ORDERED: SODIUM CHLORIDE 0.9% FLUSH 10 ML FLUSH IV FLUSH PRN (16:45)
[2017-05-10] MEDS ORDERED: MAGNESIUM HYDROXIDE SUSP 30 ML CUP PO PRN (16:45)
[2017-05-10] MEDS ORDERED: NALOXONE HCL 0.4 MG/ML AMP IV PUSH PRN (16:45)
[2017-05-10] MEDS ORDERED: GLUCAGON 1 MG/ML VIAL OTHER PRN (16:45)
[2017-05-10] MEDS ORDERED: ONDANSETRON HCL 4 MG/2 ML VIAL IVP PRN (16:45)
[2017-05-10] MEDS: INSULIN ASPART SUPPLEMENTAL SCALE SQ SCH ×2 (16:53→21:30)
--- NOTE | 2017-05-10 17:48 | HHI.HP ---
[facility] Admission Diagnosis acute ischemic CVA Diagnoses: (1) Neurologic deficit due to acute ischemic cerebrovascular accident (CVA) Diagnosis: Principal Travel History International Travel<30 Days: No Contact w/Intl Traveler <30 Da: No Traveled to Known Affected Are: No History of Present Illness Mr. Walker is a 71-year-old male. He was brought into the emergency department secondary to right facial droop and lethargy with some left leg weakness. He has dementia and cannot provide a reliable history but he cannot recall any previous CVA. She denies any chest pain. No headache. No visual changes. Presently he is able to speak some but is having difficulty speaking normally. No nausea or vomiting, no diarrhea, no viral syndrome. No other complaints tonight. 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 Reported Medications Reported Meds & Active Scripts Active Reported Albuterol Neb (Albuterol Sulfate) 2.5 Mg/3 Ml Neb 2.5 Mg NEB BID PRN Magnesium Oxide 400 Mg Tab 400 Mg PO DAILY Colace (Docusate Sodium) 100 Mg Capsule 100 Mg PO HS Calcium 600 + Vit D 400 Softgl (Calcium Carbonate/Vitamin D3) 600 Mg-400 Capsule 1 Cap PO BID Risperidone 4 Mg Tab 2 Mg PO HS Trazodone (Trazodone HCl) 100 Mg Tablet 100 Mg PO HS Levothyroxine (Levothyroxine Sodium) 25 Mcg Tab 25 Mcg PO DAILY Ditropan (Oxybutynin Chloride) 5 Mg Tab 5 Mg PO BID Aldactone (Spironolactone) 25 Mg Tab 25 Mg PO DAILY Atorvastatin (Atorvastatin Calcium) 40 Mg Tab 20 Mg PO HS Donepezil 10 Mg Tab 10 Mg PO HS Aspir-81 (Aspirin) 81 Mg Tabdr 81 Mg PO DAILY Allergies: Coded Allergies: bee venom protein (honey bee) (Unverified Allergy, Unknown, 11/09/16) Active Ordered Medications Administered Medications Medications (Trade) Dose Ordered Sig/Yahaira Route PRN Reason Start Time Stop Time Status Last Admin Dose Admin Sodium Chloride (NS Flush) 2 ml UNSCH PRN IVF FLUSH AFTER USING IV ACCESS 05/10/17 13:15 05/10/17 13:22 Family History Patient cannot recall any medical history in his mother and father Social History Patient denies any past history of smoking Patient denies any alcohol abuse Patient has a distant past history of huffing extensively Physical Exam Vital Signs Vital Signs Date Time Temp Pulse Resp B/P (MAP) Pulse Ox O2 Delivery O2 Flow Rate FiO2 05/10/17 16:53 97.7 69 16 125/82 (96) 99 Room Air 05/10/17 16:53 99 Room Air 05/10/17 16:07 97.7 73 16 136/88 (104) 99 05/10/17 15:00 97.8 67 15 140/81 (100) 98 Room Air 05/10/17 13:15 16 98 Room Air 05/10/17 13:03 63 16 98 Room Air 05/10/17 13:02 97.7 86 16 142/83 (102) 98 Physical Exam GENERAL: NAD, A&Ox2 HEAD: Normocephalic. NECK: Supple, trachea midline. No lymphadenopathy. EYES: No scleral icterus. No injection or drainage. CARDIOVASCULAR: Regular rate and rhythm without murmurs, gallops, or rubs. RESPIRATORY: Breath sounds equal bilaterally. No accessory muscle use. GASTROINTESTINAL: Abdomen soft, non-tender, nondistended. MUSCULOSKELETAL: No cyanosis, or edema. SKIN: Warm and dry. NEURO: No focal neurological deficitis. Laboratory Laboratory Tests Test 05/10/17 13:02 White Blood Count 9.8 Red Blood Count 5.20 Hemoglobin 16.6 Hematocrit 48.1 Mean Corpuscular Volume 92.6 Mean Corpuscular Hemoglobin 31.9 Mean Corpuscular Hemoglobin Concent 34.5 Red Cell Distribution Width 13.3 Platelet Count 267 Mean Platelet Volume 8.5 Neutrophils (%) (Auto) 71.4 Lymphocytes (%) (Auto) 13.7 Monocytes (%) (Auto) 11.4 Eosinophils (%) (Auto) 2.7 Basophils (%) (Auto) 0.8 Neutrophils # (Auto) 7.0 Lymphocytes # (Auto) 1.3 Monocytes # (Auto) 1.1 Eosinophils # (Auto) 0.3 Basophils # (Auto) 0.1 CBC Comment DIFF FINAL Differential Comment Prothrombin Time 11.0 Prothromb Time International Ratio 1.1 Activated Partial Thromboplast Time 27.2 Blood Urea Nitrogen 15 Creatinine 0.97 Random Glucose 78 Calcium Level 9.5 Sodium Level 137 Potassium Level 5.3 Chloride Level 105 Carbon Dioxide Level 27.3 Anion Gap 5 Estimat Glomerular Filtration Rate 77 Result Diagram: 05/10/17 1302 05/10/17 1302 Caprini VTE Risk Assessment Caprini VTE Risk Assessment: No/Low Risk (score <= 1) Caprini Risk Assessment Model Point Value = 1 Point Value = 2 Point Value = 3 Point Value = 5 Age 41-60 Minor surgery BMI > 25 kg/m2 Swollen legs Varicose veins or History of unexplained or recurrent spontaneous Oral contraceptives or hormone replacement Sepsis (< 1 month) Serious lung disease, including pneumonia (< 1 month) Abnormal pulmonary function Acute myocardial infarction Congestive heart failure (< 1 month) History of inflammatory bowel disease Medical patient at bed rest Age 61-74 Arthroscopic surgery Major open surgery (> 45 min) Laparoscopic surgery (> 45 min) Malignancy Confined to bed (> 72 hours) Immobilizing plaster cast Central venous access Age >= 75 History of VTE Family history of VTE Factor V Leiden Prothrombin [id number] Lupus anticoagulant Anticardiolipin antibodies Elevated serum homocysteine Heparin-induced thrombocytopenia Other congenital or acquired thrombophilia Stroke (< 1 month) Elective arthroplasty Hip, pelvis, or leg fracture Acute spinal cord injury (< 1 month) Prophylaxis Regimen Total Risk Factor Score Risk Level Prophylaxis Regimen 0-1 Low Early ambulation 2 Moderate Order ONE of the following: *Sequential Compression Device (SCD) *Heparin 5000 units SQ BID 3-4 Higher Order ONE of the following medications: *Heparin 5000 units SQ TID *Enoxaparin/Lovenox 40 mg SQ daily (WT < 150 kg, CrCl > 30 mL/min) *Enoxaparin/Lovenox 30 mg SQ daily (WT < 150 kg, CrCl > 10-29 mL/min) *Enoxaparin/Lovenox 30 mg SQ BID (WT < 150 kg, CrCl > 30 mL/min) AND/OR *Sequential Compression Device (SCD) 5 or more Highest Order ONE of the following medications: *Heparin 5000 units SQ TID (Preferred with Epidurals) *Enoxaparin/Lovenox 40 mg SQ daily (WT < 150 kg, CrCl > 30 mL/min) *Enoxaparin/Lovenox 30 mg SQ daily (WT < 150 kg, CrCl > 10-29 mL/min) *Enoxaparin/Lovenox 30 mg SQ BID (WT < 150 kg, CrCl > 30 mL/min) AND *Sequential Compression Device (SCD) Assessment and Plan Problem List: (1) Neurologic deficit due to acute ischemic cerebrovascular accident (CVA) ICD Code: I63.9 - Cerebral infarction, unspecified; R29.818 - Other symptoms and signs involving the nervous system Status: Acute Assessment and Plan 71-year-old male admitted secondary to acute CVA Acute CVA Follow neurologic status closely MRI of brain ordered No acute bleed on CT Carotid ultrasound ordered Neurology consulted Dementia Supportive care No change to baseline treatments Hypertension Continue baseline treatment Follow blood pressures Adjust treatments as needed Atrial fibrillation Myocardial infarction Coronary artery disease CHF Asymptomatic tonight, no chest pain No RVR Patient's atrial fibrillation could be contributory to CVA Continue baseline treatments Follow on telemetry Hyperlipidemia COPD Gastroesophageal reflux disease Hepatitis NOS Hypothyroidism Continue baseline treatment Follows an outpatient Schizophrenia PTSD Depression Anxiety Continue baseline treatment Follow clinically DVT prophylaxis SCDs Physician Certification 2 Midnight Certification Type: Admission for Inpatient Services Order for Inpatient Services The services are ordered in accordance with Medicare regulations or non- Medicare payer requirements, as applicable. In the case of services not specified as inpatient-only, they are appropriately provided as inpatient services in accordance with the 2-midnight benchmark. Estimated LOS (days): 3 days is the estimated time the patient will need to remain in the hospital, assuming treatment plan goals are met and no additional complications. Post-Hospital Plan: SNF Joe Harris MD May 10, 2017 17:48
[2017-05-10] MEDS: SODIUM CHLORIDE 0.9% FLUSH 10 ML FLUSH IV FLUSH SCH (21:21)
--- NOTE | 2017-05-10 22:55 | RADRPT ---
EXAM DATE/TIME: 05/10/2017 21:23 [facility] COMPARISON: No previous studies available for comparison. INDICATIONS : Cerebrovascular accident. MEDICAL HISTORY : Hypothyroidism. Congestive heart failure. Chronic obstructive pulmonary disease. Dementia. AR. Pearce ry artery disease. Anticoagulant therapy. Hypercholesterolemia. Afib. Hypertension. GERD. PTSD. Schiz ophrenia. Depression. Anxiety. Blood transfusion. Hepatitis. SURGICAL HISTORY : CABG. Tonsillectomy. Finger amputation. ENCOUNTER: Initial ACUITY: 1 day PAIN SCORE: 0/10 LOCATION: Bilateral neck PEAK SYSTOLIC VELOCITIES (cm/sec): ICA/CCA RATIO: Right: 0.9 Left: 0.8 ICA: Right: 73 Left: 80 CCA: Right: 84 Left: 98 ECA: Right: 100 Left: 99 VERTEBRAL: Right: 50 antegrade Left: 33 antegrade Elevated flow velocities and ICA/CCA ratios have been found to correlate with increased degrees of vessel stenosis, calculated as percentage of diameter relative to a normal segment of distal ICA/CCA FINDINGS: RIGHT CAROTID: No significant stenosis is visualized. The waveforms are within normal limits. LEFT CAROTID: No significant stenosis is visualized. The waveforms are within normal limits. VERTEBRAL ARTERIES: Antegrade flow is seen in both vertebral arteries. MISCELLANEOUS: None. CONCLUSION: 1. Examination within normal limits for age. Ty Friedman MD on May 10, 2017 at 22:52 Board Certified Radiologist. This report was verified electronically.
[2017-05-11] VITALS (8 sets, daily range): BP systolic 116–125; BP diastolic 72–80; PULSE 63–77; RESP 17–20; TEMP 97.4–99.1; O2SAT 94–97
[2017-05-11] MEDS ORDERED: guaiFENesin SOLUTION 200 MG/10 ML CUP PO PRN (04:30)
[2017-05-11] MEDS: INSULIN ASPART SUPPLEMENTAL SCALE SQ SCH ×4 (08:16→21:00)
[2017-05-11] MEDS: SODIUM CHLORIDE 0.9% FLUSH 10 ML FLUSH IV FLUSH SCH ×2 (08:18→21:00)
[2017-05-11] MEDS: ASPIRIN EC 81 MG TABEC PO SCH (08:18)
--- NOTE | 2017-05-11 08:31 | MB ---
cc: FLORI SCHULTZ M.D. DATE OF CONSULTATION 05/11/2017 HISTORY OF PRESENT ILLNESS The patient is a 71-year-old with a history of dementia who comes from the nursing facility with a history of some left facial weakness and drooling. He has a history of apparent atrial fibrillation. He is on baby aspirin, donepezil 10 mg and atorvastatin. MEDICATIONS Other meds are: 1. Aldactone. 2. Ditropan. 3. Thyroid replacement. 4. Trazodone. 5. Risperidone 4 mg tablet, 2 mg p.o. h.s. According to the nursing staff he seemed to be stable throughout the night. He is seen here in the morning with the R.N. NEUROLOGICAL EXAMINATION He was awake but essentially nonverbal. He did follow some simple commands. He moved the four extremities and intermittently observed him to have some near repetitive dystonic or clonic slow movements involving predominantly the right lower extremity. This was associated with a little bit of behavior change as he was almost staring and sometimes seemed to turn his head. His reflexes were 1-2+ and plantar response probably extensor bilaterally. IMAGING The patient had a CT brain that showed no acute abnormality. Extensive small vessel disease and atrophy noted. Carotid ultrasound was unremarkable. LABORATORY CBC was unremarkable. Chemistry showed potassium 5.3, otherwise normal basic chemistry. ASSESSMENT AND RECOMMENDATIONS This gentleman, with a history of dementia and unable to provide information, comes in with some apparent drooling, altered mentation and left facial weakness. I am seeing some behavior in him including some right leg slow repetitive movements that could be a seizure. The possibility of this behavior being secondary to risperidone, etc., is also a consideration. Therefore, I am ordering an EEG on him to see if there is any ongoing seizure activity to explain the neurologic change. Will await this information. An MRI could not be obtained due to apparent pacemaker wires. I will follow the neurological course. Will put him on aspirin as well. Thank you for asking us to assist in his care. MD SADA Arce/BT /7:22 AM /8:14 AM
--- NOTE | 2017-05-11 10:06 | HHI.PR ---
Subjective Remarks The patient is in nad. No n/v/d/c. No fever or chills. He is pleasantly confused. Since he is not eating well because he is not having much appetite. No problem with swallowing. No new motor deficit. Objective Vitals Vital Signs Date Time Temp Pulse Resp B/P (MAP) Pulse Ox O2 Delivery O2 Flow Rate FiO2 05/11/17 07:48 99.1 77 17 120/75 (90) 95 05/11/17 04:33 99.0 05/11/17 04:00 98.8 74 20 119/73 (88) 94 05/11/17 00:00 97.4 63 18 123/72 (89) 97 05/10/17 22:10 71 05/10/17 20:00 97.1 68 18 125/72 (89) 97 05/10/17 18:39 97.9 67 20 105/61 (76) 98 05/10/17 17:50 97.8 86 16 118/83 (95) 98 05/10/17 16:53 97.7 69 16 125/82 (96) 99 Room Air 05/10/17 16:53 99 Room Air 05/10/17 16:07 97.7 73 16 136/88 (104) 99 05/10/17 15:00 97.8 67 15 140/81 (100) 98 Room Air 05/10/17 13:15 16 98 Room Air 05/10/17 13:03 63 16 98 Room Air 05/10/17 13:02 97.7 86 16 142/83 (102) 98 Result Diagram: 05/10/17 1302 05/10/17 1302 Imaging Last Impressions Head CT 05/10/17 1314 Signed Impressions: Service Date/Time: Wednesday, May 10, 2017 14:58 - CONCLUSION: 1. No acute intracranial abnormality. 2. Extensive chronic small vessel ischemic change and wallerian degeneration. 3. Atrophy. Alexis Hoskins Jr., MD Carotid Artery Ultrasound 05/10/17 0000 Signed Impressions: Service Date/Time: Wednesday, May 10, 2017 21:23 - CONCLUSION: 1. Examination within normal limits for age. Ty Friedman MD Objective Remarks GENERAL: NAD, A&Ox2 HEAD: Normocephalic. NECK: Supple, trachea midline. No lymphadenopathy. EYES: No scleral icterus. No injection or drainage. CARDIOVASCULAR: Regular rate and rhythm without murmurs, gallops, or rubs. RESPIRATORY: Breath sounds equal bilaterally. No accessory muscle use. GASTROINTESTINAL: Abdomen soft, non-tender, nondistended. MUSCULOSKELETAL: No cyanosis, or edema. SKIN: Warm and dry. NEURO: No focal neurological deficitis. A/P Problem List: (1) Neurologic deficit due to acute ischemic cerebrovascular accident (CVA) ICD Code: I63.9 - Cerebral infarction, unspecified; R29.818 - Other symptoms and signs involving the nervous system Status: Acute Assessment and Plan (1) Neurologic deficit due to acute ischemic cerebrovascular accident (CVA) ICD Code: I63.9 - Cerebral infarction, unspecified; R29.818 - Other symptoms and signs involving the nervous system Status: Acute Assessment and Plan 71-year-old male admitted secondary to acute CVA Acute CVA Follow neurologic status closely MRI of brain ordered No acute bleed on CT Carotid ultrasound ordered Neurology consulted Dementia Supportive care No change to baseline treatments Hypertension Continue baseline treatment Follow blood pressures Adjust treatments as needed Atrial fibrillation Myocardial infarction Coronary artery disease CHF Asymptomatic tonight, no chest pain No RVR Patient's atrial fibrillation could be contributory to CVA Continue baseline treatments Follow on telemetry Hyperlipidemia COPD Gastroesophageal reflux disease Hepatitis NOS Hypothyroidism Continue baseline treatment Follows an outpatient Schizophrenia PTSD Depression Anxiety Continue baseline treatment Follow clinically DVT prophylaxis SCDs Rosanne Crook MD May 11, 2017 10:06
[2017-05-11 11:36] LABS: ALBUMIN 3.8 GM/DL (3.4-5.0); BICARBONATE 24.7 MEQ/L (21.0-32.0); BLOOD UREA NITROGEN 18 MG/DL (7-18); CALCIUM 9.1 MG/DL (8.5-10.1); CHLORIDE 107 MEQ/L (98-107); CHOLESTEROL 122 MG/DL (120-200); CREATININE 0.98 MG/DL (0.60-1.30); GLOMERULAR FILTRATION RATE 76 ML/MIN (>89); GLUCOSE,RANDOM 111 MG/DL (74-106); SODIUM (NA) 138 MEQ/L (136-145); TRIGLYCERIDES 82 MG/DL (42-150)
[2017-05-11 11:45] LABS: ALKALINE PHOSPHATASE 91 U/L (45-117); ALT (GPT) 14 U/L (12-78); AST (GOT) 23 U/L (15-37); CHOLESTEROL/ HDL RATIO 2.42 RATIO; HDL CHOLESTEROL 50.3 MG/DL (40.0-60.0); LDL CHOLESTEROL 55 MG/DL (0-99); TOTAL BILIRUBIN ADULT 1.1 MG/DL (0.2-1.0); TOTAL PROTEIN 7.7 GM/DL (6.4-8.2)
[2017-05-11 13:18] LABS: AUTOMATED NEUTROPHIL # 8.6 TH/MM3 (1.8-7.7); BASOPHIL # 0.1 TH/MM3 (0-0.2); BASOPHIL % 0.9 % (0.0-2.0); EOSINOPHIL # 0.3 TH/MM3 (0-0.4); EOSINOPHIL % 2.6 % (0.0-4.0); HEMATOCRIT 48.2 % (39.0-51.0); HEMOGLOBIN 16.8 GM/DL (13.0-17.0); LYMPH % 16.3 % (9.0-44.0); MEAN CELL VOLUME 92.6 FL (80.0-100.0); MEAN CORPUSCULAR HEMOGLOBIN 32.2 PG (27.0-34.0); MEAN CORPUSCULAR HGB CONC 34.8 % (32.0-36.0); MEAN PLATELET VOLUME 8.7 FL (7.0-11.0); MONO % 10.5 % (0.0-8.0); MONOCYTE # 1.3 TH/MM3 (0-0.9); NEUT % 69.7 % (16.0-70.0); PLATELET COUNT 273 TH/MM3 (150-450); RED CELL DISTRIBUTION WIDTH 13.3 % (11.6-17.2); WHITE BLOOD COUNT 12.3 TH/MM3 (4.0-11.0)
--- NOTE | 2017-05-11 16:55 | MG ---
cc: DARIUS CUTLER Lab No: Date: 05/11/2017 Age: Sex: M Race: TEST NUMBER [id number] TECHNIQUE This is a 17 channel EEG. DESCRIPTION The background rhythm reveals a symmetrical alpha rhythm. Frequency is 8 Hz. Amplitude about 20 microvolts. During drowsiness there is slowing in the theta range. There are no lateralizing features seen. There are no epileptiform discharges present. Photic stimulation results in a normal driving response. INTERPRETATION Normal EEG. MD OSMAN Apodaca/KK /3:18 PM /4:46 PM
[2017-05-11 16:58] LABS: HEMOGLOBIN A1C 5.2 % (4.3-6.0)
--- NOTE | 2017-05-11 22:11 | EKG ---
Date Performed: 05/10/2017 Time Performed: 13:15:39 PTAGE: 71 years EKG: Sinus rhythm WITH SINUS ARRHYTHMIA SEPTAL MYOCARDIAL INFARCTION MODERATE T-WAVE ABNORMALITY, CONSIDER LATERAL ISC HEMIA MODERATE T-WAVE ABNORMALITY, CONSIDER INFERIOR ISCHEMIA ABNORMAL ECG PREVIOUS TRACING : 09/22/2016 15.39 Since the prior tracing, there has been no significant serrato DOCTOR: Earnest Gillespie Interpretating Date/Time 05/11/2017 22:10:12
[2017-05-12] VITALS: BP 123/77; PULSE 67; RESP 18; TEMP 98.3; O2SAT 96
[2017-05-12 04:00] VITALS: BP 124/73; PULSE 78; RESP 18; TEMP 98.2; O2SAT 92
[2017-05-12 08:00] VITALS: BP 122/68; PULSE 75; RESP 16; TEMP 98.1; O2SAT 92
[2017-05-12] MEDS: INSULIN ASPART SUPPLEMENTAL SCALE SQ SCH ×4 (08:00→21:00)
[2017-05-12] MEDS: ASPIRIN EC 81 MG TABEC PO SCH (10:05)
--- NOTE | 2017-05-12 11:07 | HHI.PR ---
Subjective Remarks In the chair. Family at bedside. Patient denies any new motor deicitl no change in vison. Weakness in right side at baseline per family. No n/v/d/c. Better appetite and ate all food today. Objective Vitals Vital Signs Date Time Temp Pulse Resp B/P (MAP) Pulse Ox O2 Delivery O2 Flow Rate FiO2 05/12/17 08:00 98.1 75 16 122/68 (86) 92 05/12/17 04:00 98.2 78 18 124/73 (90) 92 05/12/17 00:00 98.3 67 18 123/77 (92) 96 05/11/17 20:00 98.1 70 18 125/77 (93) 96 05/11/17 15:47 97.4 69 18 116/74 (88) 95 05/11/17 11:40 98.6 75 18 120/80 (93) 97 05/11/17 11:24 74 I/O 05/11/17 05/11/17 05/11/17 05/12/17 05/12/17 05/12/17 07:00 15:00 23:00 07:00 15:00 23:00 Intake Total 240 ml Balance 240 ml Intake Oral 240 ml # Voids 3 2 4 Result Diagram: 05/11/17 1237 05/11/17 1057 Imaging Last Impressions Head CT 05/10/17 1314 Signed Impressions: Service Date/Time: Wednesday, May 10, 2017 14:58 - CONCLUSION: 1. No acute intracranial abnormality. 2. Extensive chronic small vessel ischemic change and wallerian degeneration. 3. Atrophy. Alexis Hoskins Jr., MD Carotid Artery Ultrasound 05/10/17 0000 Signed Impressions: Service Date/Time: Wednesday, May 10, 2017 21:23 - CONCLUSION: 1. Examination within normal limits for age. Ty Friedman MD Objective Remarks GENERAL: NAD, A&Ox2 HEAD: Normocephalic. NECK: Supple, trachea midline. No lymphadenopathy. EYES: No scleral icterus. No injection or drainage. CARDIOVASCULAR: Regular rate and rhythm without murmurs, gallops, or rubs. RESPIRATORY: Breath sounds equal bilaterally. No accessory muscle use. GASTROINTESTINAL: Abdomen soft, non-tender, nondistended. MUSCULOSKELETAL: No cyanosis, or edema. SKIN: Warm and dry. NEURO: No focal neurological deficitis. A/P Problem List: (1) Neurologic deficit due to acute ischemic cerebrovascular accident (CVA) ICD Code: I63.9 - Cerebral infarction, unspecified; R29.818 - Other symptoms and signs involving the nervous system Status: Acute Assessment and Plan (1) Neurologic deficit due to acute ischemic cerebrovascular accident (CVA) ICD Code: I63.9 - Cerebral infarction, unspecified; R29.818 - Other symptoms and signs involving the nervous system Status: Acute Assessment and Plan 71-year-old male admitted secondary to acute CVA Acute CVA Follow neurologic status closely MRI of brain ordered however patient can't have MRI No acute bleed on CT Carotid ultrasound reviewed and normal 2D ECHO pending Neurology consulted, thinks symptoms might be side effect of meds Dementia Supportive care No change to baseline treatments Hypertension Continue baseline treatment Follow blood pressures Adjust treatments as needed Atrial fibrillation Myocardial infarction Coronary artery disease CHF Asymptomatic tonight, no chest pain No RVR Patient's atrial fibrillation could be contributory to CVA Continue baseline treatments Follow on telemetry Hyperlipidemia COPD Gastroesophageal reflux disease Hepatitis NOS Hypothyroidism Continue baseline treatment Follows an outpatient Schizophrenia PTSD Depression Anxiety Continue baseline treatment Follow clinically DVT prophylaxis SCDs DC plan: to snf when improved and cleared by neuro Rosanne Crook MD May 12, 2017 11:07
[2017-05-12 12:00] VITALS: BP_SYST 120; BP_SYST 131; BP_DIAS 70; BP_DIAS 72; PULSE 70; PULSE 75; RESP 17; RESP 18; TEMP 97.6; TEMP 97.8; O2SAT 94; O2SAT 98
[2017-05-12] MEDS ORDERED: PILL SPLITTER OTHER PRN (12:00)
[2017-05-12] MEDS: LISINOPRIL 5 MG TAB PO SCH (12:53)
[2017-05-12] MEDS: SODIUM CHLORIDE 0.9% FLUSH 10 ML FLUSH IV FLUSH SCH ×2 (12:59→21:00)
[2017-05-12 16:00] VITALS: BP 129/65; PULSE 73; RESP 18; TEMP 98.4; O2SAT 94
[2017-05-12] MEDS ORDERED: RESP: ALBUTEROL 2.5 MG/IPRATROPIUM 0.5 MG NEB (PRN) NEB (17:00)
[2017-05-12] MEDS ORDERED: RESP: ALBUTEROL 2.5 MG/3 ML NEB (PRN) NEB (17:00)
--- NOTE | 2017-05-12 17:05 | ECHRPT ---
Indication: ef CONCLUSIONS Normal left ventricular size. The left ventricular systolic function is severely reduced with an estimated ejection fraction in th e range of 25-30%. ant-apex appears severely hypokinetic The pulmonary valve is not well visualized. BP: / HR: Rhythm: Technical Quality:Technically difficult study FINDINGS LEFT VENTRICLE Normal left ventricular size. The left ventricular systolic function is severely reduced with an estimated ejection fraction in th e range of 25-30%. RIGHT VENTRICLE Normal right ventricular size and systolic function. LEFT ATRIUM The left atrial size is normal. RIGHT ATRIUM The right atrial size is normal. ATRIAL SEPTUM Normal atrial septal thickness without atrial level shunting by limited color doppler interrogation. AORTA The aortic root and proximal ascending aorta are normal in size on limited imaging. MITRAL VALVE Structurally normal mitral valve. No mitral valve stenosis or regurgitation. AORTIC VALVE Trileaflet aortic valve. No aortic valve stenosis or regurgitation. TRICUSPID VALVE Structurally normal tricuspid valve. No tricuspid valve stenosis or regurgitation. PULMONARY VALVE The pulmonary valve is not well visualized. VESSELS The inferior vena cava is normal in size. PERICARDIUM No pericardial effusion. Vince Maya MD, FACC, FSCAI (Electronically Signed) Final Date:12 May 2017 17:03
--- NOTE | 2017-05-12 17:22 | RADRPT ---
EXAM DATE/TIME: 05/12/2017 16:56 [facility] COMPARISON: CHEST SINGLE AP, September 22, 2016, 17:00. INDICATIONS : Short of breath MEDICAL HISTORY : Dementia. Cardiovascular disease Hypertension.COPD, Hepititis SURGICAL HISTORY : CABG. ENCOUNTER: Subsequent ACUITY: 3 days PAIN SCORE: 0/10 LOCATION: chest FINDINGS: A single view of the chest demonstrates the lungs to be symmetrically aerated without evidence of mas s, infiltrate or effusion. Postsurgical changes from prior CABG are noted. The cardiomediastinal con tours are unremarkable. Osseous structures are intact. CONCLUSION: No acute disease. Status post CABG Michael Castillo MD on May 12, 2017 at 17:15 Board Certified Radiologist. This report was verified electronically.
--- NOTE | 2017-05-12 19:13 | HHI.PR ---
Review/Management Daily Summary 05/12 no distress, seen early am, spoke to rn, stable during night dementia, chf, met encephalopathy unable to run mri continue supportive care Subjective Subjective Comments nods most of the time Active Medications Current Medications Medications (Trade) Dose Ordered Sig/Yahaira Route Start Time Stop Time Status Last Admin (NS Flush) 2 ml UNSCH PRN IV FLUSH 05/10/17 16:45 (NS Flush) 2 ml BID IV FLUSH 05/10/17 21:00 05/12/17 12:59 (Zofran Inj) 4 mg Q6H PRN IVP 05/10/17 16:45 (Narcan Inj) 0.4 mg UNSCH PRN IV PUSH 05/10/17 16:45 (Milk Of Magnesia Liq) 30 ml Q12H PRN PO 05/10/17 16:45 (NovoLOG SUPPLEMENTAL SCALE) 1 ACHS SQ 05/10/17 17:00 05/10/17 21:30 (D50w (Vial) Inj) 50 ml UNSCH PRN IV PUSH 05/10/17 16:45 (Glucagon Inj) 1 mg UNSCH PRN OTHER 05/10/17 16:45 (Robitussin Liq) 200 mg Q4H PRN PO 05/11/17 04:30 05/11/17 04:34 (Prinivil) 2.5 mg DAILY PO 05/12/17 12:00 05/12/17 12:53 (Lopressor) 12.5 mg Q12HR PO 05/12/17 21:00 (Pill Splitter) 1 ea UNSCH PRN OTHER 05/12/17 12:00 (Albuterol Neb) 2.5 mg BID NEB PRN NEB 05/12/17 17:00 (Ecotrin Ec) 81 mg DAILY PO 05/13/17 09:00 (Lipitor) 20 mg HS PO 05/12/17 21:00 (Colace) 100 mg HS PO 05/12/17 21:00 (Aricept) 10 mg HS PO 05/12/17 21:00 (Synthroid) 25 mcg DAILY@0600 PO 05/13/17 06:00 (Mag-Ox) 400 mg DAILY PO 05/13/17 09:00 (Ditropan) 5 mg BID PO 05/12/17 21:00 (Aldactone) 25 mg DAILY PO 05/13/17 09:00 (Oscal) 1 mg BID PO 05/12/17 21:00 (risperDAL) 2 mg HS PO 05/12/17 21:00 (Desyrel) 100 mg HS PO 05/12/17 21:00 (Duoneb Neb) 1 ampule Q4HR NEB PRN NEB 05/12/17 17:00 Allergies Allergies Coded Allergies bee venom protein (honey bee) (Unverified Allergy, Unknown, 11/09/16) MRI PRECAUTION (Verified Adverse Reaction, Severe, Abandoned pacer wire. 05/11 LRS, 05/11/17) Exam I&O / VS 05/12/17 05/12/17 05/13/17 15:00 23:00 07:00 # Voids 4 Vital Signs Date Time Temp Pulse Resp B/P (MAP) Pulse Ox O2 Delivery O2 Flow Rate FiO2 05/12/17 16:00 98.4 73 18 129/65 (86) 94 05/12/17 12:00 97.8 75 18 131/72 (91) 98 05/12/17 08:00 98.1 75 16 122/68 (86) 92 05/12/17 04:00 98.2 78 18 124/73 (90) 92 05/12/17 00:00 98.3 67 18 123/77 (92) 96 05/11/17 20:00 98.1 70 18 125/77 (93) 96 Objective Micro and Labs Laboratory Tests Test 05/10/17 13:02 05/11/17 10:57 05/11/17 12:37 Neutrophils (%) (Auto) 71.4 % (16.0-70.0) Monocytes (%) (Auto) 11.4 % (0.0-8.0) 10.5 % (0.0-8.0) Monocytes # (Auto) 1.1 TH/MM3 (0-0.9) 1.3 TH/MM3 (0-0.9) Potassium Level 5.3 MEQ/L (3.5-5.1) Estimat Glomerular Filtration Rate 77 ML/MIN (>89) 76 ML/MIN (>89) Random Glucose 111 MG/DL (74-106) Total Bilirubin 1.1 MG/DL (0.2-1.0) White Blood Count 12.3 TH/MM3 (4.0-11.0) Neutrophils # (Auto) 8.6 TH/MM3 (1.8-7.7) Musa Oliver MD May 12, 2017 19:13
[2017-05-12 20:30] VITALS: BP 148/88; PULSE 70; RESP 18; TEMP 98.9; O2SAT 94
[2017-05-12] MEDS ORDERED: ATORVASTATIN 10 MG TAB PO SCH (21:00)
[2017-05-12] MEDS: DONEPEZIL HCL 5 MG TAB PO SCH (22:54)
[2017-05-12] MEDS: CALCIUM CARBONATE 1.25 GM (CA 500 MG) TAB PO SCH (22:55)
[2017-05-12] MEDS: METOPROLOL TARTRATE 25 MG TAB PO SCH (22:55)
[2017-05-12] MEDS: DOCUSATE SODIUM 100 MG CAP PO SCH (22:57)
[2017-05-12] MEDS: risperiDONE 1 MG TAB PO SCH (22:57)
[2017-05-12] MEDS: ATORVASTATIN 20 MG TAB PO SCH (22:58)
[2017-05-12] MEDS: traZODone HCL 100 MG TAB PO SCH (22:58)
[2017-05-12] MEDS: OXYBUTYNIN CHLORIDE 5 MG TAB PO SCH (22:59)
[2017-05-13] VITALS (10 sets, daily range): BP systolic 103–147; BP diastolic 59–90; PULSE 69–91; RESP 17–18; TEMP 97–98.1; O2SAT 95
[2017-05-13] MEDS: LEVOTHYROXINE SODIUM 25 MCG TAB PO SCH (05:55)
[2017-05-13] MEDS: INSULIN ASPART SUPPLEMENTAL SCALE SQ SCH ×2 (08:00→12:00)
[2017-05-13] MEDS: LISINOPRIL 5 MG TAB PO SCH (09:00)
[2017-05-13] MEDS: METOPROLOL TARTRATE 25 MG TAB PO SCH ×2 (09:00→22:13)
[2017-05-13] MEDS: SODIUM CHLORIDE 0.9% FLUSH 10 ML FLUSH IV FLUSH SCH ×2 (09:00→21:00)
[2017-05-13] MEDS: CALCIUM CARBONATE 1.25 GM (CA 500 MG) TAB PO SCH ×2 (10:25→22:11)
[2017-05-13] MEDS: MAGNESIUM OXIDE 400 MG TAB PO SCH (10:25)
[2017-05-13] MEDS: ASPIRIN EC 81 MG TABEC PO SCH (10:26)
[2017-05-13] MEDS: SPIRONOLACTONE 25 MG TAB PO SCH (10:26)
[2017-05-13] MEDS: OXYBUTYNIN CHLORIDE 5 MG TAB PO SCH ×2 (10:26→22:11)
[2017-05-13] MEDS ORDERED: METO25TA3 PO (11:46)
[2017-05-13] MEDS ORDERED: LISI-519 PO (11:46)
--- NOTE | 2017-05-13 11:47 | HHI.DS ---
Discharge Summary Admission Date May 10, 2017 at 16:17 Discharge Date: May 14, 2017 Admitting Diagnosis acute ischemic CVA (1) Neurologic deficit due to acute ischemic cerebrovascular accident (CVA) ICD Code: I63.9 - Cerebral infarction, unspecified; R29.818 - Other symptoms and signs involving the nervous system Status: Acute Procedures none Brief History - From Admission Mr. Walker is a 71-year-old male. He was brought into the emergency department secondary to right facial droop and lethargy with some left leg weakness. He has dementia and cannot provide a reliable history but he cannot recall any previous CVA. She denies any chest pain. No headache. No visual changes. Presently he is able to speak some but is having difficulty speaking normally. No nausea or vomiting, no diarrhea, no viral syndrome. No other complaints tonight. CBC/BMP: 05/11/17 1237 05/11/17 1057 Significant Findings Laboratory Tests Test 05/10/17 13:02 05/11/17 10:57 05/11/17 12:37 Neutrophils (%) (Auto) 71.4 % (16.0-70.0) Monocytes (%) (Auto) 11.4 % (0.0-8.0) 10.5 % (0.0-8.0) Monocytes # (Auto) 1.1 TH/MM3 (0-0.9) 1.3 TH/MM3 (0-0.9) Potassium Level 5.3 MEQ/L (3.5-5.1) Estimat Glomerular Filtration Rate 77 ML/MIN (>89) 76 ML/MIN (>89) Random Glucose 111 MG/DL (74-106) Total Bilirubin 1.1 MG/DL (0.2-1.0) White Blood Count 12.3 TH/MM3 (4.0-11.0) Neutrophils # (Auto) 8.6 TH/MM3 (1.8-7.7) Imaging Last Impressions Chest X-Ray 05/12/17 0000 Signed Impressions: Service Date/Time: April 16:56 - CONCLUSION: No acute disease. Status post CABG Michael Castillo MD Head CT 05/10/17 1314 Signed Impressions: Service Date/Time: Wednesday, May 10, 2017 14:58 - CONCLUSION: 1. No acute intracranial abnormality. 2. Extensive chronic small vessel ischemic change and wallerian degeneration. 3. Atrophy. Alexis Hoskins Jr., MD Carotid Artery Ultrasound 05/10/17 0000 Signed Impressions: Service Date/Time: Wednesday, May 10, 2017 21:23 - CONCLUSION: 1. Examination within normal limits for age. Ty Friedman MD PE at Discharge GENERAL: NAD, A&Ox2 HEAD: Normocephalic. NECK: Supple, trachea midline. No lymphadenopathy. EYES: No scleral icterus. No injection or drainage. CARDIOVASCULAR: Regular rate and rhythm without murmurs, gallops, or rubs. RESPIRATORY: Breath sounds equal bilaterally. No accessory muscle use. GASTROINTESTINAL: Abdomen soft, non-tender, nondistended. MUSCULOSKELETAL: No cyanosis, or edema. SKIN: Warm and dry. NEURO: No focal neurological deficitis. Hospital Course (1) Neurologic deficit due to acute ischemic cerebrovascular accident (CVA) ICD Code: I63.9 - Cerebral infarction, unspecified; R29.818 - Other symptoms and signs involving the nervous system Status: Acute Assessment and Plan 71-year-old male admitted secondary to acute CVA Poss Acute CVA. However, patient does not have any new motor deficit and mental status is at baseline. Follow neurologic status closely MRI of brain ordered however patient can't have MRI No acute bleed on CT Carotid ultrasound reviewed and normal 2D ECHO with low EF 25-30 % consult cardiology Neurology consulted appreciate recommendations. Cleared pt for DC to follow-up as outpatient. Dementia Supportive care No change to baseline treatments Hypertension Continue baseline treatment Follow blood pressures Adjust treatments as needed Atrial fibrillation H/o Myocardial infarction/ CAD with previous CABG CHF with severely reduced EF 20-25 % , without exacerbation at this time. Sating well on room air. Monitor O2 , O2 supplement to keep O2 sat > 94%. ECHO reviewed EF 25-30 % Consult cardiology Continue atorvastatin Lipid panel good Start metoprolol , lisinopril low dose, monitor BP and HR Continue spironolactone Needs life vest Asymptomatic tonight, no chest pain No RVR Patient's atrial fibrillation could be contributory to CVA Continue baseline treatments Follow on telemetry Hyperlipidemia COPD Gastroesophageal reflux disease Hepatitis NOS Hypothyroidism Continue baseline treatment Follows an outpatient Schizophrenia PTSD Depression Anxiety Continue baseline treatment Follow clinically DVT prophylaxis SCDs DC to end with home health PT nurses. Patient is discharged in stable condition. Discussed with Dr Edge cardiology cleared patient for DC , no life vest indicated per cardiology . Also discussed with neurology Dr Arizmendi covering for Dr Ho. Patient is cleared for DC from neuro standpoint to follow up as OP with Dr Ho in 2 weeks. Pt Condition on Discharge: Stable Discharge Disposition: [facility] Discharge Time: > 30 minutes Discharge Instructions DIET: Follow Instructions for: Heart Healthy Diet Speech Therapy-Diet Recommends: Mechanical Soft Activities you can perform: Regular-No Restrictions Follow up Referrals: Cardiology - 2 Weeks Neurology - 2 Weeks PCP Follow-up - 2-3 Days New Medications: Lisinopril (Lisinopril) 5 Mg Tab 2.5 MG PO DAILY for Blood Pressure Management, #30 TAB Metoprolol Tartrate (Metoprolol Tartrate) 25 Mg Tab 12.5 MG PO Q12HR for Blood Pressure Management, #60 TAB Continued Medications: Albuterol Neb (Albuterol Neb) 2.5 Mg/3 Ml Neb 2.5 MG NEB BID PRN for SHORTNESS OF BREATH, #[address] NEBULE [address] (Aspir-81) 81 Mg Tabdr 81 MG PO DAILY Atorvastatin (Atorvastatin) 40 Mg Tab 20 MG PO HS for Cholesterol Management, #30 TAB 0 Refills Calcium Carbonate/Vitamin D3 (Calcium 600 + Vit D 400 Softgl) 600 Mg-400 Capsule 1 CAP PO BID for Nutritional Supplement Docusate Sodium (Colace) 100 Mg Capsule 100 MG PO HS for Prevent Constipation, #30 CAP 0 Refills Donepezil (Donepezil) 10 Mg Tab 10 MG PO HS for Dementia, #30 TAB 0 Refills Levothyroxine (Levothyroxine) 25 Mcg Tab 25 MCG PO DAILY for Thyroid, #30 TAB 0 Refills Magnesium Oxide (Magnesium Oxide) 400 Mg Tab 400 MG PO DAILY for Nutritional Supplement, TAB 0 Refills Oxybutynin (Ditropan) 5 Mg Tab 5 MG PO BID for Urinary Symptom Managemen, #60 TAB 0 Refills Risperidone (Risperidone) 4 Mg Tab 2 MG PO HS, #30 TAB 0 Refills Spironolactone (Aldactone) 25 Mg Tab 25 MG PO DAILY, #30 TAB 0 Refills Trazodone (Trazodone) 100 Mg Tablet 100 MG PO HS for Control Depression, #30 TAB 0 Refills Rosanne Crook MD May 13, 2017 11:46
--- NOTE | 2017-05-13 11:55 | HHI.PR ---
Subjective Remarks In bed he is tired. No new motor deficit./ He is breathing well on room air. No cough. Denies any chest pain or sob. Objective Vitals Vital Signs Date Time Temp Pulse Resp B/P (MAP) Pulse Ox O2 Delivery O2 Flow Rate FiO2 05/13/17 08:30 98.0 72 18 103/64 (77) 95 05/13/17 04:36 97.6 75 17 121/63 (82) 95 05/13/17 00:25 98.0 77 18 121/59 (79) 95 05/12/17 20:30 98.9 70 18 148/88 (108) 94 05/12/17 16:00 98.4 73 18 129/65 (86) 94 05/12/17 12:00 97.8 75 18 131/72 (91) 98 I/O 05/12/17 05/12/17 05/12/17 05/13/17 05/13/17 05/13/17 07:00 15:00 23:00 07:00 15:00 23:00 Intake Total 240 ml Balance 240 ml Intake Oral 240 ml # Voids 4 4 # Bowel Movements 1 Result Diagram: 05/11/17 1237 05/11/17 1057 Imaging Last Impressions Chest X-Ray 05/12/17 0000 Signed Impressions: Service Date/Time: April 16:56 - CONCLUSION: No acute disease. Status post CABG Michael Castillo MD Head CT 05/10/17 1314 Signed Impressions: Service Date/Time: Wednesday, May 10, 2017 14:58 - CONCLUSION: 1. No acute intracranial abnormality. 2. Extensive chronic small vessel ischemic change and wallerian degeneration. 3. Atrophy. Alexis Hoskins Jr., MD Carotid Artery Ultrasound 05/10/17 0000 Signed Impressions: Service Date/Time: Wednesday, May 10, 2017 21:23 - CONCLUSION: 1. Examination within normal limits for age. Ty Friedman MD Objective Remarks GENERAL: NAD, A&Ox2 HEAD: Normocephalic. NECK: Supple, trachea midline. No lymphadenopathy. EYES: No scleral icterus. No injection or drainage. CARDIOVASCULAR: Regular rate and rhythm without murmurs, gallops, or rubs. RESPIRATORY: Breath sounds equal bilaterally. No accessory muscle use. GASTROINTESTINAL: Abdomen soft, non-tender, nondistended. MUSCULOSKELETAL: No cyanosis, or edema. SKIN: Warm and dry. NEURO: No new focal neurological deficit. Right sided weakness at baseline from previous stroke. A/P Problem List: (1) Neurologic deficit due to acute ischemic cerebrovascular accident (CVA) ICD Code: I63.9 - Cerebral infarction, unspecified; R29.818 - Other symptoms and signs involving the nervous system Status: Acute Assessment and Plan (1) Neurologic deficit due to acute ischemic cerebrovascular accident (CVA) ICD Code: I63.9 - Cerebral infarction, unspecified; R29.818 - Other symptoms and signs involving the nervous system Status: Acute Assessment and Plan 71-year-old male admitted secondary to acute CVA Acute CVA Follow neurologic status closely MRI of brain ordered however patient can't have MRI No acute bleed on CT Carotid ultrasound reviewed and normal 2D ECHO with low EF 25-30 % consult cardiology Neurology consulted, thinks symptoms might be side effect of meds Dementia Supportive care No change to baseline treatments Hypertension Continue baseline treatment Follow blood pressures Adjust treatments as needed Atrial fibrillation H/o Myocardial infarction/ CAD with previous CABG CHF with severely reduced EF 20-25 % , without exacerbation at this time. Sating well on room air. Monitor O2 , O2 supplement to keep O2 sat > 94%. ECHO reviewed EF 25-30 % Consult cardiology Continue atorvastatin Lipid panel good Start metoprolol , lisinopril low dose, monitor BP and HR Continue spironolactone Needs life vest Asymptomatic tonight, no chest pain No RVR Patient's atrial fibrillation could be contributory to CVA Continue baseline treatments Follow on telemetry Hyperlipidemia COPD Gastroesophageal reflux disease Hepatitis NOS Hypothyroidism Continue baseline treatment Follows an outpatient Schizophrenia PTSD Depression Anxiety Continue baseline treatment Follow clinically DVT prophylaxis SCDs DC plan: to SNF when improved and cleared by neuro and cardiology Rosanne Crook MD May 13, 2017 11:55
[2017-05-13] MEDS ORDERED: DEFIB EXTERNAL (11:57)
--- NOTE | 2017-05-13 16:36 | MB ---
cc: [employer] DATE OF CONSULTATION: 05/13/2017 REASON FOR CONSULTATION: Mr. Walker is a 71-year-old white male with history of severe dementia who presented with right facial droop and, left arm and left leg weakness. He has not had any chest and shortness of breath. Overall he is currently comfortable without any distress. PAST MEDICAL HISTORY 1. Positive for dementia, 2. schizophrenia 3. post-traumatic stress disorder 4. Depression 5. anxiety 6. atrial fibrillation 7. myocardial function 8. hypertension 9. coronary disease 10. congestive heart failure 11. Dyslipidemia 12. COPD 14. hepatitis 15. hypothyroidism. 16. History of coronary bypass 17. tonsillectomy 18. 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 MEDICATIONS medications include 1. Aspirin 2. Omeprazole 3. Atorvastatin 4. Aldactone 5. Ditropan. 6. Levothyroxine 7. Trazodone. 8. Risperdal. 9. Calcium Colace. 10. Magnesium. 11. Albuterol. SOCIAL HISTORY The patient smokes, does not drink alcohol. ALLERGIES NO KNOWN MEDICAL ALLERGIES. FAMILY HISTORY Negative for heart disease, cirrhosis, review of systems is otherwise negative. PHYSICAL EXAMINATION VITAL SIGNS: Blood pressure 105/74, pulse 70 and regular. HEAD, EYES, EARS, NOSE, AND THROAT: Negative. 2+ carotid upstrokes, No bruits. LUNGS: Clear. CARDIAC: Heart regular with no murmur. ABDOMEN: Soft, no bruits. EXTREMITIES: Without edema. 2+ distal abscess. NEUROLOGIC: Examination is consistent with aphasia. CONCLUSION EKG was reviewed and showed normal sinus rhythm, PACs, normal axis, anteroseptal Q-waves and diffuse nonspecific ST-T changes. LABORATORY DATA Hemoglobin 16.8, potassium 4.6, creatinine 1.0, AST, ALT normal, LDL 55, HDL 50. Echocardiogram showed severe left dysfunction with an ejection fraction 25-30% with anteroapical hypokinesis. DIAGNOSIS 1. Neurologic deficits. 2. Altered mental status. 3. Severe dementia 4. Cardiomyopathy with severe left ventricular systolic dysfunction. 5. Paroxysmal atrial fibrillation. 6. Hypertension. 7. Coronary artery disease. 8. Congestive heart failure. 9. Dyslipidemia 10. Schizophrenia DISPOSITION Mr. Walker will be monitored on telemetry. He is undergoing neurologic evaluation. I recommend to continue ARNULFO inhibitor, beta-shay and spironolactone for his congestive heart failure. He does not appear to have any angina or significant heart failure. I will follow him for cardiology during his hospitalization. He is currently living in assisted living facility and will likely need placement to the nursing facility after discharge. MD GREGORIO Arredondo/angelo /3:04 PM /3:24 PM MASHA
[2017-05-13] MEDS: ATORVASTATIN 20 MG TAB PO SCH (22:10)
[2017-05-13] MEDS: DONEPEZIL HCL 5 MG TAB PO SCH (22:10)
[2017-05-13] MEDS: traZODone HCL 100 MG TAB PO SCH (22:11)
[2017-05-13] MEDS: risperiDONE 1 MG TAB PO SCH (22:12)
[2017-05-13] MEDS: DOCUSATE SODIUM 100 MG CAP PO SCH (22:12)
[2017-05-14] VITALS: BP 140/84; PULSE 78; RESP 18; TEMP 97.5; O2SAT 95
[2017-05-14 04:00] VITALS: BP 138/75; PULSE 90; RESP 20; TEMP 98.7; O2SAT 97
[2017-05-14] MEDS: LEVOTHYROXINE SODIUM 25 MCG TAB PO SCH (05:47)
[2017-05-14 08:00] VITALS: BP 125/73; PULSE 72; RESP 19; TEMP 97.6; O2SAT 91
[2017-05-14] MEDS: MAGNESIUM OXIDE 400 MG TAB PO SCH (08:53)
[2017-05-14] MEDS: SPIRONOLACTONE 25 MG TAB PO SCH (08:53)
[2017-05-14] MEDS: ASPIRIN EC 81 MG TABEC PO SCH (08:53)
[2017-05-14] MEDS: METOPROLOL TARTRATE 25 MG TAB PO SCH (08:54)
[2017-05-14] MEDS: LISINOPRIL 5 MG TAB PO SCH (08:54)
[2017-05-14] MEDS: CALCIUM CARBONATE 1.25 GM (CA 500 MG) TAB PO SCH (08:54)
[2017-05-14] MEDS: OXYBUTYNIN CHLORIDE 5 MG TAB PO SCH (09:00)
[2017-05-14] MEDS: SODIUM CHLORIDE 0.9% FLUSH 10 ML FLUSH IV FLUSH SCH (09:00)
[2017-05-14 11:11] VITALS: PULSE 69
--- NOTE | 2017-05-14 11:34 | PD.CARD.PN ---
Subjective Subjective Remarks Sleeping, comfortable Objective Medications Current Medications Medications (Trade) Dose Ordered Sig/Yahaira Route Start Time Stop Time Status Last Admin (NS Flush) 2 ml UNSCH PRN IV FLUSH 05/10/17 16:45 (NS Flush) 2 ml BID IV FLUSH 05/10/17 21:00 05/12/17 21:00 (Zofran Inj) 4 mg Q6H PRN IVP 05/10/17 16:45 (Narcan Inj) 0.4 mg UNSCH PRN IV PUSH 05/10/17 16:45 (Milk Of Magnesia Liq) 30 ml Q12H PRN PO 05/10/17 16:45 (Robitussin Liq) 200 mg Q4H PRN PO 05/11/17 04:30 05/11/17 04:34 (Prinivil) 2.5 mg DAILY PO 05/12/17 12:00 05/14/17 08:54 (Lopressor) 12.5 mg Q12HR PO 05/12/17 21:00 05/14/17 08:54 (Pill Splitter) 1 ea UNSCH PRN OTHER 05/12/17 12:00 (Albuterol Neb) 2.5 mg BID NEB PRN NEB 05/12/17 17:00 (Ecotrin Ec) 81 mg DAILY PO 05/13/17 09:00 05/14/17 08:53 (Lipitor) 20 mg HS PO 05/12/17 21:00 05/13/17 22:10 (Colace) 100 mg HS PO 05/12/17 21:00 05/13/17 22:12 (Aricept) 10 mg HS PO 05/12/17 21:00 05/13/17 22:10 (Synthroid) 25 mcg DAILY@0600 PO 05/13/17 06:00 05/14/17 05:47 (Mag-Ox) 400 mg DAILY PO 05/13/17 09:00 05/14/17 08:53 (Ditropan) 5 mg BID PO 05/12/17 21:00 05/14/17 09:00 (Aldactone) 25 mg DAILY PO 05/13/17 09:00 05/14/17 08:53 (Oscal) 1 mg BID PO 05/12/17 21:00 05/14/17 08:54 (risperDAL) 2 mg HS PO 05/12/17 21:00 05/13/17 22:12 (Desyrel) 100 mg HS PO 05/12/17 21:00 05/13/17 22:11 (Duoneb Neb) 1 ampule Q4HR NEB PRN NEB 05/12/17 17:00 Vital Signs / I&O Vital Signs Date Time Temp Pulse Resp B/P (MAP) Pulse Ox O2 Delivery O2 Flow Rate FiO2 05/14/17 11:11 69 05/14/17 08:00 97.6 72 19 125/73 (90) 91 05/14/17 04:00 98.7 90 20 138/75 (96) 97 05/14/17 00:00 97.5 78 18 140/84 (102) 95 05/13/17 20:33 84 05/13/17 20:00 97.0 89 18 147/90 (109) 95 05/13/17 16:43 98.1 83 18 117/74 (88) 95 05/13/17 16:00 91 05/13/17 12:49 98.0 70 18 105/70 (82) 95 05/13/17 12:00 69 I/O 05/13/17 05/13/17 05/13/17 05/14/17 05/14/17 05/14/17 07:00 15:00 23:00 07:00 15:00 23:00 Intake Total 240 ml 360 ml Balance 240 ml 360 ml Intake Oral 240 ml 360 ml # Voids 4 1 1 4 # Bowel Movements 1 Physical Exam GENERAL: In NAD SKIN: Warm and dry. HEAD: Normocephalic. EYES: No scleral icterus. No injection or drainage. NECK: Supple, trachea midline. No JVD or lymphadenopathy. CARDIOVASCULAR: Regular rate and rhythm without murmurs, gallops, or rubs. RESPIRATORY: Breath sounds equal bilaterally. No accessory muscle use. GASTROINTESTINAL: Abdomen soft, non-tender, nondistended. MUSCULOSKELETAL: No cyanosis, or edema. Somnolent, aphasic Assessment and Plan Problem List: (1) Neurological deficit present ICD Codes: R29.818 - Other symptoms and signs involving the nervous system (2) Altered mental status ICD Codes: R41.82 - Altered mental status, unspecified (3) Dementia ICD Codes: F03.90 - Unspecified dementia without behavioral disturbance (4) CAD (coronary artery disease) ICD Codes: I25.10 - Atherosclerotic heart disease of [place] coronary artery without angina pectoris (5) HTN (hypertension) ICD Codes: I10 - Essential (primary) hypertension (6) Paroxysmal atrial fibrillation ICD Codes: I48.0 - Paroxysmal atrial fibrillation (7) Cardiomyopathy ICD Codes: I42.9 - Cardiomyopathy, unspecified Assessment and Plan Continue current program. Echo with severe LV systolic dysfunction. Continue tx for CHF, the patient is on maximum tolerated GDMT. No new cardiac issues. He has severe dementia. OK to discharge from cardiac standpoint. D/w Dr. Crook. Aishwarya Edge MD May 14, 2017 11:34
[2017-05-14 11:58] VITALS: BP 128/85; PULSE 81; RESP 18; TEMP 98.2; O2SAT 93
--- NOTE | 2017-05-14 13:48 | HHI.PR ---
Subjective Remarks Appears at baseline. Eating very well today. No new motor or sensory deficit. Pleasant. Denies having any pain. No shortness of breath denies any chest pain. He is satting well on room air. Objective Vitals Vital Signs Date Time Temp Pulse Resp B/P (MAP) Pulse Ox O2 Delivery O2 Flow Rate FiO2 05/14/17 11:58 98.2 81 18 128/85 (99) 93 05/14/17 11:11 69 05/14/17 08:00 97.6 72 19 125/73 (90) 91 05/14/17 04:00 98.7 90 20 138/75 (96) 97 05/14/17 00:00 97.5 78 18 140/84 (102) 95 05/13/17 20:33 84 05/13/17 20:00 97.0 89 18 147/90 (109) 95 05/13/17 16:43 98.1 83 18 117/74 (88) 95 05/13/17 16:00 91 I/O 05/13/17 05/13/17 05/13/17 05/14/17 05/14/17 05/14/17 07:00 15:00 23:00 07:00 15:00 23:00 Intake Total 240 ml 360 ml Balance 240 ml 360 ml Intake Oral 240 ml 360 ml # Voids 4 1 1 4 # Bowel Movements 1 Result Diagram: 05/11/17 1237 05/11/17 1057 Imaging Last Impressions Chest X-Ray 05/12/17 0000 Signed Impressions: Service Date/Time: April 16:56 - CONCLUSION: No acute disease. Status post CABG Michael Castillo MD Head CT 05/10/17 1314 Signed Impressions: Service Date/Time: Wednesday, May 10, 2017 14:58 - CONCLUSION: 1. No acute intracranial abnormality. 2. Extensive chronic small vessel ischemic change and wallerian degeneration. 3. Atrophy. Alexis Hoskins Jr., MD Carotid Artery Ultrasound 05/10/17 0000 Signed Impressions: Service Date/Time: Wednesday, May 10, 2017 21:23 - CONCLUSION: 1. Examination within normal limits for age. Ty Friedman MD Objective Remarks GENERAL: NAD, A&Ox2 HEAD: Normocephalic. NECK: Supple, trachea midline. No lymphadenopathy. EYES: No scleral icterus. No injection or drainage. CARDIOVASCULAR: Regular rate and rhythm without murmurs, gallops, or rubs. RESPIRATORY: Breath sounds equal bilaterally. No accessory muscle use. GASTROINTESTINAL: Abdomen soft, non-tender, nondistended. MUSCULOSKELETAL: No cyanosis, or edema. SKIN: Warm and dry. NEURO: No new focal neurological deficit. Right sided weakness at baseline from previous stroke. Procedures none A/P Problem List: (1) Neurologic deficit due to acute ischemic cerebrovascular accident (CVA) ICD Code: I63.9 - Cerebral infarction, unspecified; R29.818 - Other symptoms and signs involving the nervous system Status: Acute Assessment and Plan (1) Neurologic deficit due to acute ischemic cerebrovascular accident (CVA) ICD Code: I63.9 - Cerebral infarction, unspecified; R29.818 - Other symptoms and signs involving the nervous system Status: Acute Assessment and Plan 71-year-old male admitted secondary to acute CVA Poss Acute CVA Follow neurologic status closely MRI of brain ordered however patient can't have MRI No acute bleed on CT Carotid ultrasound reviewed and normal 2D ECHO with low EF 25-30 % consult cardiology, maximize medical management Neurology consulted, appreciate recommendations. To follow up as OP with neuro. Dementia Supportive care No change to baseline treatments Hypertension Continue baseline treatment Follow blood pressures Adjust treatments as needed Atrial fibrillation H/o Myocardial infarction/ CAD with previous CABG CHF with severely reduced EF 20-25 % , without exacerbation at this time. Sating well on room air. Monitor O2 , O2 supplement to keep O2 sat > 94%. ECHO reviewed EF 25-30 % Consult cardiology Continue atorvastatin Lipid panel good Start metoprolol , lisinopril low dose, monitor BP and HR Continue spironolactone Needs life vest Asymptomatic tonight, no chest pain No RVR Patient's atrial fibrillation could be contributory to CVA Continue baseline treatments Follow on telemetry Hyperlipidemia COPD Gastroesophageal reflux disease Hepatitis NOS Hypothyroidism Continue baseline treatment Follows an outpatient Schizophrenia PTSD Depression Anxiety Continue baseline treatment Follow clinically DVT prophylaxis SCDs DC plan: The patient is cleared by cardiology and neurology. Family decided they want patient to go back to his and with physical therapy and not going to nursing home facility. Discharged to [facility] with physical therapy Rosanne Crook MD May 14, 2017 13:48
--- NOTE | 2017-05-14 13:50 | HHI.FF ---
Face to Face Verification Diagnosis: (1) CHF (congestive heart failure) (2) Syncope (3) Pleural thickening (4) Neurologic deficit due to acute ischemic cerebrovascular accident (CVA) (5) CAD (coronary artery disease) (6) Dementia (7) Paroxysmal atrial fibrillation (8) Cardiomyopathy (9) HTN (hypertension) (10) Neurological deficit present Physical Therapy Order: Evaluate and Treat Home Health Nursing Order: Medical education Signs/symptoms of disease process CHF education Medication education-adverse effect Nursing assessment with vital signs I have seen patient Keanu Walker on 05/14/17. My clinical findings support the need for the requested home health care services because: Ltd mobility - disease progression Patient has SOB Limited ability to care for self I certify that my clinical findings support that this patient is homebound because: Post-op weakness Impaired cognitive ability/safety Unsteady gait/balance Rosanne Crook MD May 14, 2017 13:50
[2017-05-14] MEDS ORDERED: METOPROLOL TARTRATE 25 MG TAB PO SCH (21:00)
--- NOTE | 2017-05-22 18:58 | PQ ---
Physician Query Response Document PATIENT: AMANDA DHILLON : 1945 ADMIT DATE: 05/10/2017 4:17 PM DISCH DATE: 05/14/2017 4:05 PM RESPONDING PROVIDER #: leda QUERY TEXT: Clinical Validity Additional clinical indicators are required to support documented diagnosis of: Metabolic encephalop athy. (Are you in agreement with this diagnosis?) Please respond and also state in your next progress note whether: -- Condition exists and also please provide clinical indicators to support the diagnosis -- Condition does not exist and also please provide amended documentation in the medical record to cl johana -- Unable to provide additional clarity regarding the diagnosis -- Other, please specify If you have any additional questions/comments and/or concerns, please do not hesitate to reach out to the CDI/Coding Hotline, Ext. [phone]. The patient's Clinical Indicators include: Dr. Oliver's Progress note of 05/12/17 (at top of report under Daily Summary): dementia, chf, met ence phalopathy Query created by: Gabriela Whittington on 05/19/2017 5:29 PM RESPONSE TEXT: Systolic CHF with decreased EF Electronically signed by: Rosanne Crook MD 05/22/2017 6:55 PM
--- NOTE | 2017-05-25 09:53 | PQ ---
Physician Query Response Document PATIENT: AMANDA DHILLON : 1945 ADMIT DATE: 05/10/2017 4:17 PM DISCH DATE: 05/14/2017 4:05 PM RESPONDING PROVIDER #: mcosma QUERY TEXT: CHF Acuity and Type Congestive Heart Failure is documented in the Medical Record. Please document the type (includes prob able or suspected) Such as: Type: -- Systolic -- Diastolic -- Combined -- Other, please specify Also please document the underlying cause of the CHF (includes probable or suspected) If you have any additional questions/comments and/or concerns, please do not hesitate to reach out to the CDI/Coding Hotline, Ext. [phone]. The patient's Clinical Indicators include: Progress Note of 05/13/17: H/o Myocardial infarction/ CAD with previous CABG CHF with severely reduced EF 20-25 % , without exacerbation at this time. Dr. Edge's Progress Note 05/14/17: Assessment and Plan : Continue current program. Echo with severe LV systolic dysfunction. Continue tx for CHF, the patient is on maximum tolerated GDMT. No new cardiac issues. Echocardiogram was performed during this admission on 05/12/17: CONCLUSIONS Normal left ventricular size. The left ventricular systolic function is severely reduced with an estimated ejection fraction in the range of 25-30%. ant-apex appears severely hypokinetic The pulmonary valve is not well visualized. Query created by: Gabriela Whittington on 05/19/2017 5:34 PM RESPONSE TEXT: The patient has systolic CHF with severely reduced EF 22-30%. ECHO 05/13/17 shows the left ventricular systolic function is severely reduced with an estimated ejection fraction in the range of 25-30%. Electronically signed by: Rosanne Crook MD 05/25/2017 9:49 AM
== END 2017-05-14 16:05 | DRG 65 ==
LOC: NEPC 12:56 → NEDA 16:17 → N05B 18:02
PROVIDERS: ADMIT Hospitalist; ATTEND Hospitalist
DX: I63.9 Cerebral infarction, unspecified (principal); I50.22 Chronic systolic (congestive) heart failure; I11.0 Hypertensive heart disease with heart failure; F03.90 Unspecified dementia, unspecified severity, without behavioral disturbance, psychotic disturbance, mood disturbance, and anxiety; R29.810 Facial weakness; F32.9 Major depressive disorder, single episode, unspecified; I25.10 Atherosclerotic heart disease of native coronary artery without angina pectoris; I25.2 Old myocardial infarction; Z95.1 Presence of aortocoronary bypass graft; E78.5 Hyperlipidemia, unspecified; J44.9 Chronic obstructive pulmonary disease, unspecified; K21.9 Gastro-esophageal reflux disease without esophagitis; E03.9 Hypothyroidism, unspecified; Z79.82 Long term (current) use of aspirin; F43.10 Post-traumatic stress disorder, unspecified; Z89.021 Acquired absence of right finger(s)
CPT/HCPCS: 70450; 71045; 80048; 80053; 80061; 82948; 83036; 85025; 85610; 85730; 93005; 93308; 93880; 95819; 99285; J1815

== ENCOUNTER 2017-12-01 10:25 | Inpatient (IN) ==
[2017-12-01] MEDS ORDERED: MethylPREDNISolone Sod Succinate Inj 125 MG/2 ML Vial IV.PUSH ONE (11:13)
--- NOTE | 2017-12-01 11:18 | ED ---
HPI General Chief complaint: Respiratory Symptoms Stated complaint: Vomitting Time Seen by Provider: 12/01/17 11:00 History of Present Illness HPI narrative: 71-year-old male with history of COPD, CHF, dementia, hepatitis, coronary artery disease, presents for evaluation of cough and congestion. Patient is a resident of [facility] living [facility] and all information is obtained from an employee of [facility]. Symptoms started 3 days ago. He has had cough, chest congestion. He had one episode of posttussive emesis today which he notes was "dark colored." The employee discussed the emesis with the physician of [facility] who recommended that the patient come here to rule out GI bleed. The patient has seemed more fatigued than usual as well. Denies fevers or change in diet. Symptoms are moderate, duration 3 days, no obvious aggravating relieving factors. The patient is not on any blood thinners according to detention records that are available. No other complaints at this time. Related Data Home Medications Medication Instructions Recorded Confirmed albuterol sulfate 2.5 mg INHALATION Q4-6H PRN 12/01/17 12/01/17 atorvastatin 20 mg PO DAILY 12/01/17 12/01/17 carboxymethylcell-glycerin(PF) 0.5 % OPHTHALMIC (EYE) QID 12/01/17 12/01/17 cetirizine 10 mg PO DAILY 12/01/17 12/01/17 clonidine HCl 0.1 mg PO DAILY 12/01/17 12/01/17 donepezil 10 mg PO DAILY 12/01/17 12/01/17 ipratropium-albuterol 0.5 - 3 mg INHALATION QID 12/01/17 12/01/17 levothyroxine 25 mcg PO DAILY 12/01/17 12/01/17 mupirocin 1 applic TOPICAL BID 12/01/17 12/01/17 naltrexone 50 mg PO DAILY 12/01/17 12/01/17 oxybutynin chloride 5 mg PO BID 12/01/17 12/01/17 risperidone 1 mg PO DAILY 12/01/17 12/01/17 spironolactone 25 mg PO DAILY 12/01/17 12/01/17 trazodone 50 mg PO DAILY 12/01/17 12/01/17 Allergies Allergy/AdvReac Type Severity Reaction Status Date / Time bee venom protein (honey bee) Allergy Unknown Unverified 11/09/16 22:10 MRI PRECAUTION AdvReac Severe Abandoned Uncoded 05/11/17 09:45 pacer wire. 05/11/17 LRS Review of Systems ROS: all other systems reviewed are negative [facility] Medical History Medical History Bipolar 1 disorder (Acute) COPD (chronic obstructive pulmonary disease) (Acute) Social History Social History Smoking Status: Former smoker Tobacco Type: Cigarettes How Often Do You Have a Drink Containing Alcohol: Never Recent Travel in [facility] within the Last 8 Weeks: No Recent Out of Country Travel within the Last 8 Weeks: No Immunization History Tetanus Immunization: Unsure Exam Narrative Exam Narrative: GENERAL: This is a elderly gentleman who is in no acute distress. SKIN: Warm and dry. Stage I pressure ulcer of the sacrum is noted. HEAD: Atraumatic. Normocephalic. EYES: Pupils equal and round. No scleral icterus. No injection or drainage. ENT: No nasal bleeding or discharge. Mucous membranes pink and moist. NECK: Trachea midline. No JVD. CARDIOVASCULAR: Regular rate and rhythm. No murmur appreciated. RESPIRATORY: No accessory muscle use. Coarse breath sounds and wheezing bilaterally. GASTROINTESTINAL: Abdomen soft, non-tender, nondistended. Hepatic and splenic margins not palpable. Rectal examination reveals brown Hemoccult positive stool. MUSCULOSKELETAL: No obvious deformities. No clubbing. No cyanosis. No edema. NEUROLOGICAL: Awake and alert. No obvious cranial nerve deficits. Motor grossly within normal limits. Normal speech. Procedures Hemaprompt Stool Procedural Steps Taken: specimen placed in appropriate test area and controls appropriately positive and negative Hemaprompt Stool Result: positive Course Initial Documented Vital Signs Pulse Rate 98 H 12/01/17 10:52 Respiratory Rate 18 12/01/17 10:52 Blood Pressure 129/83 12/01/17 10:52 Pulse Oximetry 96 12/01/17 10:52 Last Documented Vital Signs Pulse Rate 98 H 12/01/17 10:52 Respiratory Rate 18 12/01/17 10:52 Blood Pressure 129/83 12/01/17 10:52 Pulse Oximetry 96 12/01/17 12:25 Medical Decision Making DANICA Attestation DANICA supervised visit: Yes Attestation: I, Dr. Powell, have reviewed the advance practice practitioner's documentation and am in agreement, met with the patient face to face, made the diagnosis, and the medical decision making was done by me. *My assessment and Findings: Patient seen and examined by me in addition to Azar ORTIZ. This is a 71-year-old male presents emergency department for evaluation of cough congestion and a moderate amount of what appeared to be hematemesis, my examination he is having a lot of upper respiratory sounds, is tachypneic. Workup in progress. We will continue to monitor. Chest x-ray turns does show left-sided consolidation possible right upper lung consolidation. White count in excess of 20,000. He is tachypneic and this would meet SIRS criteria. He will be started on broad-spectrum antibiotics and admitted to the hospital. I reviewed his EKG which does show some ST segment elevation in 8 to be a slight elevation in V2 but is nondiagnostic. There is no change from his previous EKG in April of this year. MDM Narrative Medical decision making narrative: Patient was placed on ECG monitoring pulse oximetry EKG was obtained revealing slight ST elevation in V3 but EKG is unchanged from previous in April of this year. Lab work, chest x-ray been ordered. Patient was given DuoNeb treatment and Solu-Medrol for his wheezing. Chest x-ray reveals left lower lobe consolidation, the patient was started on vancomycin and Zosyn for healthcare associated pneumonia. WBC count is 21. Lactic acid and blood cultures ordered. Patient has a known ejection fraction of 25-30% from an echocardiogram in April of this year so will be cautious with fluid administration, additional 500 normal saline bolus has been ordered in conjunction with antibiotic fluid administration. Lab work also demonstrates EDWIN. The patient was Hemoccult positive his hemoglobin is 16.6 and unchanged from previous. The patient will require admission. Discussed with the residents who are agreeable with admission to Dr. Golden. Medical Screen Exam Complete: Yes Emergency Medical Condition: Yes Differential Diagnosis Differential Diagnosis: Pneumonia, COPD exacerbation, pulmonary edema, sepsis, GI bleed, acute anemia Lab Data Result diagrams: 12/01/17 12:10 12/01/17 12:10 Lab Results 12/01/17 12/01/17 12/01/17 Range/Units 12:10 12:10 12:10 WBC 21.5 H (4.0-11.0) th/mm3 RBC 5.15 (4.50-5.90) mil/mm3 Hgb 16.6 (13.0-17.0) gm/dL Hct 50.0 (39.0-51.0) % MCV 97.1 (80.0-100.0) fL MCH 32.2 (27.0-34.0) pg MCHC 33.2 (32.0-36.0) % RDW 13.5 (11.6-17.2) % Plt Count 246 (150-450) th/mm3 MPV 9.1 (7.0-11.0) fL Prelim Diff (Auto) Manual diff required WBC Differential Manual diff final Seg Neuts % (Manual) 72 H (16-70) % Band Neuts % (Manual) 20 H (0-6) % Lymphocytes % (Manual) 1 L (9-44) % Monocytes % (Manual) 7 (0-8) % Abs Neuts (Manual) 19.8 H (1.8-7.7) th/mm3 Differential Comment . Platelet Estimate Normal (Normal) Platelet Morphology Normal (Normal) RBC Morphology Normal (Normal) PT 12.0 H (9.8-11.6) sec INR 1.2 Ratio APTT 27.3 (24.3-30.1) sec Sodium 141 (136-145) meq/L Potassium 4.4 (3.5-5.1) meq/L Chloride 109 H (98-107) meq/L Carbon Dioxide 17.0 L (21.0-32.0) meq/L Anion Gap 15 (5-15) meq/L BUN 50 H (7-18) mg/dL Creatinine 1.52 H (0.60-1.30) mg/dL Estimated GFR 46 L (>89) mL/min Random Glucose 139 H (74-106) mg/dL Calcium 8.7 (8.5-10.1) mg/dL Magnesium 2.0 (1.5-2.5) mg/dL Total Bilirubin 1.3 H (0.2-1.0) mg/dL AST 42 H (15-37) U/L ALT 19 (12-78) U/L Alkaline Phosphatase 69 (45-117) U/L Total Creatine Kinase 512 H (39-308) U/L CK-MB (CK-2) 10.1 H (0.5-3.6) ng/mL CK-MB (CK-2) % 2.0 (0.0-4.0) % Troponin I 0.03 (0.02-0.05) ng/mL B-Natriuretic Peptide (0-100) pg/mL Total Protein 8.2 (6.4-8.2) g/dL Albumin 3.9 (3.4-5.0) g/dL Blood Type Antibody Screen 12/01/17 12/01/17 Range/Units 12:10 12:10 WBC (4.0-11.0) th/mm3 RBC (4.50-5.90) mil/mm3 Hgb (13.0-17.0) gm/dL Hct (39.0-51.0) % MCV (80.0-100.0) fL MCH (27.0-34.0) pg MCHC (32.0-36.0) % RDW (11.6-17.2) % Plt Count (150-450) th/mm3 MPV (7.0-11.0) fL Prelim Diff (Auto) WBC Differential Seg Neuts % (Manual) (16-70) % Band Neuts % (Manual) (0-6) % Lymphocytes % (Manual) (9-44) % Monocytes % (Manual) (0-8) % Abs Neuts (Manual) (1.8-7.7) th/mm3 Differential Comment Platelet Estimate (Normal) Platelet Morphology (Normal) RBC Morphology (Normal) PT (9.8-11.6) sec INR Ratio APTT (24.3-30.1) sec Sodium (136-145) meq/L Potassium (3.5-5.1) meq/L Chloride (98-107) meq/L Carbon Dioxide (21.0-32.0) meq/L Anion Gap (5-15) meq/L BUN (7-18) mg/dL Creatinine (0.60-1.30) mg/dL Estimated GFR (>89) mL/min Random Glucose (74-106) mg/dL Calcium (8.5-10.1) mg/dL Magnesium (1.5-2.5) mg/dL Total Bilirubin (0.2-1.0) mg/dL AST (15-37) U/L ALT (12-78) U/L Alkaline Phosphatase (45-117) U/L Total Creatine Kinase (39-308) U/L CK-MB (CK-2) (0.5-3.6) ng/mL CK-MB (CK-2) % (0.0-4.0) % Troponin I (0.02-0.05) ng/mL B-Natriuretic Peptide 142 H (0-100) pg/mL Total Protein (6.4-8.2) g/dL Albumin (3.4-5.0) g/dL Blood Type O Positive Antibody Screen Positive H Imaging Data Radiologist's impression: Chest X-Ray 12/01/17 11:13 CONCLUSION: Left lung infiltrates Discharge Plan Discharge Disposition Patient Disposition: 30 Still Patient Discharge Condition Condition: Stable Discharge Details Diagnosis: HCAP (healthcare-associated pneumonia), Sepsis, EDWIN (acute kidney injury), GI bleed Physicians Team ED Provider: Simba Powell ED Midlevel Provider: Azar Graham Primary Care Provider: Admin Clinic,Physician [place] Rxs /Orders / Referrals /Forms Prescriptions: No Action clonidine HCl 0.1 mg Tablet 0.1 mg PO DAILY RF: 0 atorvastatin 20 mg Tablet 20 mg PO DAILY RF: 0 ipratropium-albuterol 0.5 mg-3 mg(2.5 mg base)/3 mL Solution For Nebulization 0.5 - 3 mg Inhalation QID RF: 0 albuterol sulfate 2.5 mg /3 mL (0.083 %) Solution For Nebulization 2.5 mg Inhalation Q4-6H PRN (Reason: Shortness Of Breath) RF: 0 trazodone 50 mg Tablet 50 mg PO DAILY RF: 0 cetirizine 10 mg Tablet 10 mg PO DAILY RF: 0 donepezil 10 mg Tablet 10 mg PO DAILY RF: 0 naltrexone 50 mg Tablet 50 mg PO DAILY RF: 0 spironolactone 25 mg Tablet 25 mg PO DAILY RF: 0 levothyroxine 25 mcg Tablet 25 mcg PO DAILY RF: 0 mupirocin 2 % Ointment 1 applic TOPICAL BID RF: 0 oxybutynin chloride 5 mg Tablet 5 mg PO BID RF: 0 risperidone 1 mg Tablet 1 mg PO DAILY RF: 0 carboxymethylcell-glycerin(PF) 0.5-0.9 % [place] 0.5 % ophthalmic (eye) QID RF: 0 Discharge Interventions Interventions: Vital Signs Last Done: 12/01/17 10:52 Status ED Status: With Doctor
[2017-12-01 12:51] LABS: Hemoglobin 16.6 gm/dL (13.0-17.0); Mean Corpuscular HGB Conc 33.2 % (32.0-36.0); Mean Corpuscular Hemoglobin 32.2 pg (27.0-34.0); Mean Corpuscular Volume 97.1 fL (80.0-100.0); Mean Platelet Volume 9.1 fL (7.0-11.0); Platelet Count 246 th/mm3 (150-450); Red Blood Count 5.15 mil/mm3 (4.50-5.90); Red Cell Distribution Width 13.5 % (11.6-17.2); White Blood Count 21.5 th/mm3 (4.0-11.0)
[2017-12-01 12:58] LABS: Activated Partial Thrombo Time 27.3 sec (24.3-30.1); INR 1.2 Ratio
[2017-12-01] MEDS ORDERED: Vancomycin Inj 1,000 MG in Sodium Chlor 0.9% Inj 250 ML IV.SIG STA (13:01)
[2017-12-01] MEDS ORDERED: Piperacil/Tazo 4.5 GM Premix 4.5 GM/100 ML BAG IV.SIG STA (13:01)
--- NOTE | 2017-12-01 13:01 | XR ---
EXAM DATE: 12/01/2017 12:46 PM EDT AGE/SEX: 71 years / Male INDICATIONS: Congestion with shortness of breath and wheezing x1 week. CLINICAL DATA: This is the patient's initial encounter. Patient reports that signs and symptoms have been present for 1 week and indicates a pain score of 0/10. MEDICAL/SURGICAL HISTORY: Cardiovascular disease. CABG. COMPARISON: [facility] [place] CHEST SINGLE AP, 05/12/2017. . FINDINGS: There is infiltrate in the left upper lobe and left perihilar region. Right lung is grossly clear. No effusion present. Cardiac contours are satisfactory. Previous sternotomy. CONCLUSION: Left lung infiltrates Electronically signed by: Ildefonso Bowie MD 12/01/2017 12:59 PM EDT
[2017-12-01 13:08] LABS: Alanine Aminotransferase 19 U/L (12-78)
[2017-12-01 13:13] LABS: Lymphocytes 1 % (9-44); Monocytes 7 % (0-8); Platelet Estimate Normal (Normal)
[2017-12-01 13:14] LABS: Platelet Morphology Normal (Normal); RBC Morphology Normal (Normal)
[2017-12-01 13:16] LABS: Albumin 3.9 g/dL (3.4-5.0); Alkaline Phosphatase 69 U/L (45-117); Anion Gap 15 meq/L (5-15); Aspartate Aminotransferase 42 U/L (15-37); Blood Urea Nitrogen 50 mg/dL (7-18); Calcium 8.7 mg/dL (8.5-10.1); Chloride 109 meq/L (98-107); Creatine Kinase 512 U/L (39-308); Glomerular Filtration Rate 46 mL/min (>89); Glucose,Random 139 mg/dL (74-106); Potassium 4.4 meq/L (3.5-5.1); Sodium 141 meq/L (136-145); Total Protein 8.2 g/dL (6.4-8.2); Troponin I 0.03 ng/mL (0.02-0.05)
[2017-12-01 13:29] LABS: Creatine Kinase MB 10.1 ng/mL (0.5-3.6)
[2017-12-01] MEDS ORDERED: Sodium Chlor 0.9% Inj 500 ML IV.SIG SCH (14:00)
--- NOTE | 2017-12-01 14:22 | P.HPFP ---
History of Present Illness Primary Care Physician: Physician [facility] <Jeni Golden 12/02/17 12:28> Physician [facility] <Diana Diaz 12/01/17 14:22> History of Present Illness: Mr Walker is a 71-year-old male with past medical history of dementia who is relatively noncommunicative. 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 Patient lives at [facility]. 3 days ago patient began to have cough and chest congestion. Today he had a single episode of dark colored posttussive emesis. Associated symptoms are fatigue. Denies fevers or changes in diet. Patient is not on any blood thinners <Diana Diaz 12/01/17 15:59> - Diagnosis (1) Sepsis (2) Community acquired pneumonia (3) COPD (chronic obstructive pulmonary disease) (4) GI bleed (5) Hypothyroid (6) CHF (congestive heart failure) (7) EDWIN (acute kidney injury) (8) Dementia (9) Dyslipidemia (10) Bipolar 1 disorder (11) Nutrition, metabolism, and development symptoms <Jeni Golden 12/02/17 12:28> (1) Sepsis (2) Community acquired pneumonia (3) COPD (chronic obstructive pulmonary disease) (4) GI bleed (5) Hypothyroid (6) CHF (congestive heart failure) (7) EDWIN (acute kidney injury) (8) Dementia (9) Dyslipidemia (10) Bipolar 1 disorder (11) Nutrition, metabolism, and development symptoms <Diana Diaz 12/01/17 15:40> Inpatient Certification: I certify that the inpatient services were ordered in accordance with Medicare regulations governing the order. This includes certification that hospital inpatient services are reasonable and necessary and in the case of services not specified as inpatient-only under 42 CFR 419.22(n), that they are appropriately provided as inpatient services in accordance to with the 2-midnight benchmark under 43 CFR 412.3(e) <Jeni Golden 12/02/17 12:28> Review of Systems Difficult to obtain as patient is relatively non communicative. History provided by care certified solid waste facility operator and ED note <Diana Diaz 12/01/17 15:59> Constitutional: Denies fever(s) <Diana Diaz 12/01/17 15:10> Respiratory: Reports chest congestion, Reports cough, Reports coughing up blood <Diana Diaz 12/01/17 15:10> Gastrointestinal: Reports vomiting blood <Diana Diaz 12/01/17 15:10> PMFSH - History History Provided By: Patient <Diana Diaz 12/01/17 14:22> - Medical History Medical History: Medical History (Last Updated 12/01/17 @ 15:08 by Diana Diaz MD, R1) Bipolar 1 disorder CHF (congestive heart failure) COPD (chronic obstructive pulmonary disease) Dementia Dyslipidemia GERD (gastroesophageal reflux disease) Hypertension Hypothyroid <Jeni Golden 12/02/17 12:28> Medical History (Last Updated 12/01/17 @ 15:08 by Diana Diaz MD, R1) Bipolar 1 disorder CHF (congestive heart failure) COPD (chronic obstructive pulmonary disease) Dementia Dyslipidemia GERD (gastroesophageal reflux disease) Hypertension Hypothyroid <Diana Diaz 12/01/17 15:10> - Surgical History Surgical History: Surgical History (Last Updated 12/01/17 @ 15:08 by Diana Diaz MD, R1) H/O heart bypass surgery <Jeni Golden 12/02/17 12:28> Surgical History (Last Updated 12/01/17 @ 15:08 by Diana Diaz MD, R1) H/O heart bypass surgery <Diana Diaz 12/01/17 15:10> - Tobacco History Smoking Status: Former smoker <Diana Diaz 12/01/17 14:22> Tobacco Type: Cigarettes <Diana Diaz 12/01/17 14:22> - Alcohol History How Often Do You Have a Drink Containing Alcohol: Never <Diana Diaz 12/01 14:22> - Travel History Recent Travel in the [facility] Within the Last 8 Weeks: No <Diana Diaz 14:22> Recent Travel Out of the Country Within the Last 8 Weeks: No <Diana Diaz 12/01/17 14:22> - Immunization History Tetanus Immunization: Unsure <Diana Diaz - 12/01/17 14:22> Medications and Allergies Allergies Allergy/AdvReac Type Severity Reaction Status Date / Time bee venom protein (honey bee) Allergy Unknown Unverified 11/09/16 22:10 MRI PRECAUTION AdvReac Severe Abandoned Uncoded 05/11/17 09:45 pacer wire. 05/11/17 LRS <Jeni Golden - 12/02/17 12:28> Home Medications Medication Instructions Recorded Confirmed Type albuterol sulfate 2.5 mg INHALATION Q4-6H PRN 12/01/17 12/01/17 History atorvastatin 20 mg PO DAILY 12/01/17 12/01/17 History carboxymethylcell-glycerin(PF) 0.5 % OPHTHALMIC (EYE) QID 12/01/17 12/01/17 History cetirizine 10 mg PO DAILY 12/01/17 12/01/17 History clonidine HCl 0.1 mg PO DAILY 12/01/17 12/01/17 History donepezil 10 mg PO DAILY 12/01/17 12/01/17 History ipratropium-albuterol 0.5 - 3 mg INHALATION QID 12/01/17 12/01/17 History levothyroxine 25 mcg PO DAILY 12/01/17 12/01/17 History mupirocin 1 applic TOPICAL BID 12/01/17 12/01/17 History naltrexone 50 mg PO DAILY 12/01/17 12/01/17 History oxybutynin chloride 5 mg PO BID 12/01/17 12/01/17 History risperidone 1 mg PO DAILY 12/01/17 12/01/17 History spironolactone 25 mg PO DAILY 12/01/17 12/01/17 History trazodone 50 mg PO DAILY 12/01/17 12/01/17 History <Jeni Golden - 12/02/17 12:28> Active Medications: Active Medications Al Hydroxide/Mg Hydroxide (Milk Of Magnesia Liq) 30 ml PO Q12H PRN PRN Reason: Mild Constipation Albuterol (Albuterol Neb (Prn)) 2.5 mg NEB Q4HR NEB PRN PRN Reason: Shortness Of Breath Albuterol (Duoneb Neb (Yahaira)) 1 ampul NEB QID NEB YAHAIRA Last Admin: 12/02/17 12:00 Dose: 1 ampul Atorvastatin Calcium (Lipitor) 20 mg PO DAILY [facility] Last Admin: 12/02/17 09:29 Dose: 20 mg Cetirizine HCl (Zyrtec) 10 mg PO DAILY [facility] Last Admin: 12/02/17 09:30 Dose: 10 mg Cod Liver Oil/Zinc Oxide (Desitin 40% Oint) 1 applicatio TOPICAL PRN PRN PRN Reason: RASH Donepezil HCl (Aricept) 10 mg PO DAILY [facility] Last Admin: 12/02/17 09:31 Dose: 10 mg Sodium Chloride (Ns Inj) 500 mls @ 0 mls/hr IV.SIG BOLUS [facility] Last Infusion: 12/01/17 14:56 Dose: Infused Azithromycin 500 mg/ Sodium (Chloride) 250 mls @ 250 mls/hr IV.SIG Q24H [facility] Last Infusion: 12/01/17 16:47 Dose: Infused Ceftriaxone Sodium 2,000 mg/ (Sodium Chloride) 100 mls @ 200 mls/hr IV.SIG Q24H [facility] Last Infusion: 12/01/17 18:21 Dose: Infused Sodium Chloride (Ns Inj) 1,000 mls @ 50 mls/hr IV.CONT .Q20H [facility] Last Admin: 12/01/17 15:35 Dose: 50 mls/hr Levothyroxine Sodium (Synthroid) 25 mcg PO DAILY@0600 [facility] Last Admin: 12/02/17 05:53 Dose: 25 mcg Prednisone (Deltasone) 40 mg PO DAILY [facility] Last Admin: 12/02/17 09:29 Dose: 40 mg Risperidone (Risperdal) 1 mg PO DAILY [facility] Last Admin: 12/02/17 09:31 Dose: 1 mg Senna/Docusate Sodium (Mikayla-Colace) 1 tab PO BID [facility] Last Admin: 12/02/17 09:31 Dose: 1 tab Sennosides (Senokot) 17.2 mg PO Q12H PRN PRN Reason: Moderate Constipation Spironolactone (Aldactone) 25 mg PO DAILY [facility] Last Admin: 12/02/17 09:31 Dose: 25 mg Trazodone HCl (Desyrel) 50 mg PO DAILY [facility] Last Admin: 12/02/17 09:29 Dose: 50 mg <Jeni Golden - 12/02/17 12:28> Active Medications Sodium Chloride (Ns Inj) 500 mls @ 0 mls/hr IV.SIG BOLUS YAHAIRA <Diana Diaz E - 12/01/17 14:22> Exam Vital signs: Vital Signs 12/01/17 15:27 12/01/17 16:00 12/01/17 20:00 Temperature 97.6 F 98.4 F Pulse Rate 90 92 H 88 Respiratory Rate 18 20 28 H Blood Pressure 130/79 149/84 H 120/69 Pulse Oximetry 96 98 95 12/01/17 20:05 12/02/17 00:00 12/02/17 04:00 Temperature 99.5 F 98.7 F Pulse Rate 67 90 80 Respiratory Rate 28 H 22 18 Blood Pressure 114/74 109/58 L Pulse Oximetry 95 94 L 94 L 12/02/17 08:00 12/02/17 08:06 12/02/17 12:00 Temperature 97.0 F L 98.1 F Pulse Rate 90 77 81 Respiratory Rate 18 16 16 Blood Pressure 122/56 L 116/68 Pulse Oximetry 93 L 93 L 94 L 12/02/17 12:01 Temperature Pulse Rate 78 Respiratory Rate 16 Blood Pressure Pulse Oximetry Intake & Output 12/01/17 12/02/17 12/02/17 18:59 06:59 18:59 Intake Total 1200 / 1200 Balance 1200 / 1200 Weight 58.9 kg Intake: IV 1200 / 1200 Azithromycin Inj 500 MG In NS 250 / 250 Inj 250 ML @ 250 mls/hr IV.SIG Q24H YAHAIRA Rx#:[id number] Zosyn 4.5 GM Premix 4.5 gm In 100 / 100 100 ml @ 200 mls/hr IV.SIG STAT STA Rx#:[id number] NS Inj 500 ML @ Wide Open IV. 500 / 500 SIG BOLUS YAHAIRA Rx#:[id number] Vancomycin Inj 1,000 MG In NS 250 / 250 Inj 250 ML @ 250 mls/hr IV.SIG STAT STA Rx#:[id number] Rocephin Inj 2,000 MG In NS Inj 100 / 100 100 ML @ 200 mls/hr IV.SIG Q24H YAHAIRA Rx#:[id number] Other: # Incontinent Voids 1 Date of Last Bowel Movement 12/01/17 12/01/17 <Jeni Golden - 12/02/17 12:28> Vital Signs 12/01/17 10:52 12/01/17 11:13 12/01/17 12:25 Pulse Rate 98 H Respiratory Rate 18 Blood Pressure 129/83 Pulse Oximetry 96 96 96 <Diana Diaz - 12/01/17 14:22> Narrative: GENERAL: Thin appearing elderly male lying in bed, no acute distress SKIN: Bruising in various stages of healing over upper and lower extremities. Stage I sacral decubitus ulcer. Linear lacerations on upper left arm. HEAD: Normocephalic. EYES: No scleral icterus. Yellow discharge noted at inner corner of the right eye NECK: No JVD or lymphadenopathy. CARDIOVASCULAR: Heart sounds difficult to appreciate due to course overlying breath sounds. Regular rate and rhythm without murmurs, gallops, or rubs. RESPIRATORY: Breath sounds equal bilaterally. Coarse breath sounds diffusely with isolated wheezing right greater than left lung larson GASTROINTESTINAL: Abdomen soft, non-tender, nondistended. No hepatosplenomegaly MUSCULOSKELETAL: No cyanosis, or edema. Neurological: Patient oriented to self and place. Communicates mostly with yes and no. Very limited vocabulary. <Diana Diaz - 12/01/17 15:59> Results - Labs Result diagrams: 12/02/17 05:36 12/02/17 05:36 <Jeni Golden M - 12/02/17 12:28> Abnormal lab results 12/01/17 12/01/17 12/01/17 Range/Units 12:10 12:10 12:10 WBC 21.5 H (4.0-11.0) th/mm3 RBC (4.50-5.90) mil/mm3 Neut % (Auto) (16.0-70.0) % Lymph % (Auto) (9.0-44.0) % Neut # (Auto) (1.8-7.7) th/mm3 Lymph # (Auto) (1.0-4.8) th/mm3 Andrews # (Auto) (0.0-0.9) th/mm3 Seg Neuts % (Manual) 72 H (16-70) % Band Neuts % (Manual) 20 H (0-6) % Lymphocytes % (Manual) 1 L (9-44) % Metamyelocytes % (Man) (0-1) % Abs Neuts (Manual) 19.8 H (1.8-7.7) th/mm3 PT 12.0 H (9.8-11.6) sec Sodium (136-145) meq/L Chloride 109 H (98-107) meq/L Carbon Dioxide 17.0 L (21.0-32.0) meq/L BUN 50 H (7-18) mg/dL Creatinine 1.52 H (0.60-1.30) mg/dL Estimated GFR 46 L (>89) mL/min Random Glucose 139 H (74-106) mg/dL Lactic Acid (0.4-2.0) mmol/L Calcium (8.5-10.1) mg/dL Total Bilirubin 1.3 H (0.2-1.0) mg/dL AST 42 H (15-37) U/L Total Creatine Kinase 512 H (39-308) U/L CK-MB (CK-2) 10.1 H (0.5-3.6) ng/mL B-Natriuretic Peptide (0-100) pg/mL Urine Clarity (Clear) Urine Ketones (Negative) mg/dL Urine Occult Blood (Negative) Urine WBC (0-5) /hpf Amorphous Sediment (None) /hpf Urine Bacteria (None) /hpf Urine Mucus (Occasional) /lpf Antibody Screen MTS Gel Crossmatch 12/01/17 12/01/17 12/01/17 Range/Units 12:10 12:10 15:17 WBC (4.0-11.0) th/mm3 RBC (4.50-5.90) mil/mm3 Neut % (Auto) (16.0-70.0) % Lymph % (Auto) (9.0-44.0) % Neut # (Auto) (1.8-7.7) th/mm3 Lymph # (Auto) (1.0-4.8) th/mm3 Andrews # (Auto) (0.0-0.9) th/mm3 Seg Neuts % (Manual) (16-70) % Band Neuts % (Manual) (0-6) % Lymphocytes % (Manual) (9-44) % Metamyelocytes % (Man) (0-1) % Abs Neuts (Manual) (1.8-7.7) th/mm3 PT (9.8-11.6) sec Sodium (136-145) meq/L Chloride (98-107) meq/L Carbon Dioxide (21.0-32.0) meq/L BUN (7-18) mg/dL Creatinine (0.60-1.30) mg/dL Estimated GFR (>89) mL/min Random Glucose (74-106) mg/dL Lactic Acid 6.4 H* (0.4-2.0) mmol/L Calcium (8.5-10.1) mg/dL Total Bilirubin (0.2-1.0) mg/dL AST (15-37) U/L Total Creatine Kinase (39-308) U/L CK-MB (CK-2) (0.5-3.6) ng/mL B-Natriuretic Peptide 142 H (0-100) pg/mL Urine Clarity (Clear) Urine Ketones (Negative) mg/dL Urine Occult Blood (Negative) Urine WBC (0-5) /hpf Amorphous Sediment (None) /hpf Urine Bacteria (None) /hpf Urine Mucus (Occasional) /lpf Antibody Screen Positive H MTS Gel Crossmatch See Detail 12/01/17 12/01/17 12/02/17 Range/Units 18:00 20:34 05:36 WBC 16.6 H (4.0-11.0) th/mm3 RBC 4.21 L (4.50-5.90) mil/mm3 Neut % (Auto) 89.9 H (16.0-70.0) % Lymph % (Auto) 3.0 L (9.0-44.0) % Neut # (Auto) 14.9 H (1.8-7.7) th/mm3 Lymph # (Auto) 0.5 L (1.0-4.8) th/mm3 Andrews # (Auto) 1.2 H (0.0-0.9) th/mm3 Seg Neuts % (Manual) (16-70) % Band Neuts % (Manual) 24 H (0-6) % Lymphocytes % (Manual) 1 L (9-44) % Metamyelocytes % (Man) 2 H (0-1) % Abs Neuts (Manual) 15.3 H (1.8-7.7) th/mm3 PT (9.8-11.6) sec Sodium (136-145) meq/L Chloride (98-107) meq/L Carbon Dioxide (21.0-32.0) meq/L BUN (7-18) mg/dL Creatinine (0.60-1.30) mg/dL Estimated GFR (>89) mL/min Random Glucose (74-106) mg/dL Lactic Acid 3.2 H (0.4-2.0) mmol/L Calcium (8.5-10.1) mg/dL Total Bilirubin (0.2-1.0) mg/dL AST (15-37) U/L Total Creatine Kinase (39-308) U/L CK-MB (CK-2) (0.5-3.6) ng/mL B-Natriuretic Peptide (0-100) pg/mL Urine Clarity Cloudy H (Clear) Urine Ketones Trace H (Negative) mg/dL Urine Occult Blood Moderate H (Negative) Urine WBC 6 H (0-5) /hpf Amorphous Sediment Rare H (None) /hpf Urine Bacteria Rare H (None) /hpf Urine Mucus Few H (Occasional) /lpf Antibody Screen MTS Gel Crossmatch 12/02/17 12/02/17 Range/Units 05:36 05:36 WBC (4.0-11.0) th/mm3 RBC (4.50-5.90) mil/mm3 Neut % (Auto) (16.0-70.0) % Lymph % (Auto) (9.0-44.0) % Neut # (Auto) (1.8-7.7) th/mm3 Lymph # (Auto) (1.0-4.8) th/mm3 Andrews # (Auto) (0.0-0.9) th/mm3 Seg Neuts % (Manual) (16-70) % Band Neuts % (Manual) (0-6) % Lymphocytes % (Manual) (9-44) % Metamyelocytes % (Man) (0-1) % Abs Neuts (Manual) (1.8-7.7) th/mm3 PT (9.8-11.6) sec Sodium 146 H (136-145) meq/L Chloride 115 H (98-107) meq/L Carbon Dioxide (21.0-32.0) meq/L BUN 38 H (7-18) mg/dL Creatinine (0.60-1.30) mg/dL Estimated GFR 81 L (>89) mL/min Random Glucose 114 H (74-106) mg/dL Lactic Acid (0.4-2.0) mmol/L Calcium 8.0 L (8.5-10.1) mg/dL Total Bilirubin (0.2-1.0) mg/dL AST (15-37) U/L Total Creatine Kinase 1663 H (39-308) U/L CK-MB (CK-2) 10.9 H (0.5-3.6) ng/mL B-Natriuretic Peptide (0-100) pg/mL Urine Clarity (Clear) Urine Ketones (Negative) mg/dL Urine Occult Blood (Negative) Urine WBC (0-5) /hpf Amorphous Sediment (None) /hpf Urine Bacteria (None) /hpf Urine Mucus (Occasional) /lpf Antibody Screen MTS Gel Crossmatch Short CBC 12/01/17 12/02/17 Range/Units 12:10 05:36 WBC 21.5 H 16.6 H (4.0-11.0) th/mm3 Hgb 16.6 13.7 D (13.0-17.0) gm/dL Hct 50.0 39.9 (39.0-51.0) % Plt Count 246 207 (150-450) th/mm3 BMP 12/01/17 12/02/17 12:10 05:36 Sodium 141 146 H Potassium 4.4 3.8 Chloride 109 H 115 H Carbon Dioxide 17.0 L 21.1 BUN 50 H 38 H Creatinine 1.52 H 0.93 Calcium 8.7 8.0 L Cardiac Enzymes 12/01/17 12/02/17 Range/Units 12:10 05:36 Total Creatine Kinase 512 H 1663 H (39-308) U/L CK-MB (CK-2) 10.1 H 10.9 H (0.5-3.6) ng/mL Troponin I 0.03 (0.02-0.05) ng/mL Liver Function 12/01/17 Range/Units 12:10 Total Bilirubin 1.3 H (0.2-1.0) mg/dL AST 42 H (15-37) U/L ALT 19 (12-78) U/L Alkaline Phosphatase 69 (45-117) U/L Albumin 3.9 (3.4-5.0) g/dL Urine 12/01/17 Range/Units 18:00 Urine Color Yellow (Yellw/Straw) Urine Clarity Cloudy H (Clear) Urine pH 5.0 (5.0-8.5) Ur Specific Trinity 1.024 (1.002-1.035) Urine Protein Negative (Neg-Trace) mg/dL Urine Glucose (UA) 500 or greater (Negative) mg/dL <Jeni Golden - 12/02/17 12:28> Abnormal lab results 12/01/17 12/01/17 12/01/17 Range/Units 12:10 12:10 12:10 WBC 21.5 H (4.0-11.0) th/mm3 Seg Neuts % (Manual) 72 H (16-70) % Band Neuts % (Manual) 20 H (0-6) % Lymphocytes % (Manual) 1 L (9-44) % Abs Neuts (Manual) 19.8 H (1.8-7.7) th/mm3 PT 12.0 H (9.8-11.6) sec Chloride 109 H (98-107) meq/L Carbon Dioxide 17.0 L (21.0-32.0) meq/L BUN 50 H (7-18) mg/dL Creatinine 1.52 H (0.60-1.30) mg/dL Estimated GFR 46 L (>89) mL/min Random Glucose 139 H (74-106) mg/dL Total Bilirubin 1.3 H (0.2-1.0) mg/dL AST 42 H (15-37) U/L Total Creatine Kinase 512 H (39-308) U/L CK-MB (CK-2) 10.1 H (0.5-3.6) ng/mL B-Natriuretic Peptide (0-100) pg/mL Antibody Screen 12/01/17 12/01/17 Range/Units 12:10 12:10 WBC (4.0-11.0) th/mm3 Seg Neuts % (Manual) (16-70) % Band Neuts % (Manual) (0-6) % Lymphocytes % (Manual) (9-44) % Abs Neuts (Manual) (1.8-7.7) th/mm3 PT (9.8-11.6) sec Chloride (98-107) meq/L Carbon Dioxide (21.0-32.0) meq/L BUN (7-18) mg/dL Creatinine (0.60-1.30) mg/dL Estimated GFR (>89) mL/min Random Glucose (74-106) mg/dL Total Bilirubin (0.2-1.0) mg/dL AST (15-37) U/L Total Creatine Kinase (39-308) U/L CK-MB (CK-2) (0.5-3.6) ng/mL B-Natriuretic Peptide 142 H (0-100) pg/mL Antibody Screen Positive H Short CBC 12/01/17 Range/Units 12:10 WBC 21.5 H (4.0-11.0) th/mm3 Hgb 16.6 (13.0-17.0) gm/dL Hct 50.0 (39.0-51.0) % Plt Count 246 (150-450) th/mm3 BMP 12/01/17 12:10 Sodium 141 Potassium 4.4 Chloride 109 H Carbon Dioxide 17.0 L BUN 50 H Creatinine 1.52 H Calcium 8.7 Cardiac Enzymes 12/01/17 Range/Units 12:10 Total Creatine Kinase 512 H (39-308) U/L CK-MB (CK-2) 10.1 H (0.5-3.6) ng/mL Troponin I 0.03 (0.02-0.05) ng/mL Liver Function 12/01/17 Range/Units 12:10 Total Bilirubin 1.3 H (0.2-1.0) mg/dL AST 42 H (15-37) U/L ALT 19 (12-78) U/L Alkaline Phosphatase 69 (45-117) U/L Albumin 3.9 (3.4-5.0) g/dL <Diana Diaz - 12/01/17 14:22> - Imaging Impressions Chest X-Ray 12/01/17 11:13 CONCLUSION: Left lung infiltrates Chest X-Ray 12/02/17 05:00 CONCLUSION: Worsening edema or pneumonia. <Jeni Golden - 12/02/17 12:28> Impressions Chest X-Ray 12/01/17 11:13 CONCLUSION: Left lung infiltrates <Diana Diaz - 12/01/17 14:22> Caprini VTE Risk Assessment Caprini VTE Risk Assessment: Moderate/High Risk (score >= 2) <Diana Diaz - 12/01/17 15:10> Caprini Risk Assessment Model: Point Value = 1 Point Value = 2 Point Value = 3 Point Value = 5 Age 41-60 Minor surgery BMI > 25 kg/m2 Swollen legs Varicose veins or History of unexplained or recurrent spontaneous Oral contraceptives or hormone replacement Sepsis (< 1 month) Serious lung disease, including pneumonia (< 1 month) Abnormal pulmonary function Acute myocardial infarction Congestive heart failure (< 1 month) History of inflammatory bowel disease Medical patient at bed rest Age 61-74 Arthroscopic surgery Major open surgery (> 45 min) Laparoscopic surgery (> 45 min) Malignancy Confined to bed (> 72 hours) Immobilizing plaster cast Central venous access Age >= 75 History of VTE Family history of VTE Factor V Leiden Prothrombin [id number] Lupus anticoagulant Anticardiolipin antibodies Elevated serum homocysteine Heparin-induced thrombocytopenia Other congenital or acquired thrombophilia Stroke (< 1 month) Elective arthroplasty Hip, pelvis, or leg fracture Acute spinal cord injury (< 1 month) <Jeni Golden - 12/02/17 12:28> Point Value = 1 Point Value = 2 Point Value = 3 Point Value = 5 Age 41-60 Minor surgery BMI > 25 kg/m2 Swollen legs Varicose veins or History of unexplained or recurrent spontaneous Oral contraceptives or hormone replacement Sepsis (< 1 month) Serious lung disease, including pneumonia (< 1 month) Abnormal pulmonary function Acute myocardial infarction Congestive heart failure (< 1 month) History of inflammatory bowel disease Medical patient at bed rest Age 61-74 Arthroscopic surgery Major open surgery (> 45 min) Laparoscopic surgery (> 45 min) Malignancy Confined to bed (> 72 hours) Immobilizing plaster cast Central venous access Age >= 75 History of VTE Family history of VTE Factor V Leiden Prothrombin [id number] Lupus anticoagulant Anticardiolipin antibodies Elevated serum homocysteine Heparin-induced thrombocytopenia Other congenital or acquired thrombophilia Stroke (< 1 month) Elective arthroplasty Hip, pelvis, or leg fracture Acute spinal cord injury (< 1 month) <Diana Diaz - 12/01/17 14:22> Prophylaxis Regimen: Total Risk Factor Score Risk Level Prophylaxis Regimen 0-1 Low Early ambulation 2 Moderate Order ONE of the following: *Sequential Compression Device (SCD) *Heparin 5000 units SQ BID 3-4 Higher Order ONE of the following medications: *Heparin 5000 units SQ TID *Enoxaparin/Lovenox 40 mg SQ daily (WT < 150 kg, CrCl > 30 mL/min) *Enoxaparin/Lovenox 30 mg SQ daily (WT < 150 kg, CrCl > 10-29 mL/min) *Enoxaparin/Lovenox 30 mg SQ BID (WT < 150 kg, CrCl > 30 mL/min) AND/OR *Sequential Compression Device (SCD) 5 or more Highest Order ONE of the following medications: *Heparin 5000 units SQ TID (Preferred with Epidurals) *Enoxaparin/Lovenox 40 mg SQ daily (WT < 150 kg, CrCl > 30 mL/min) *Enoxaparin/Lovenox 30 mg SQ daily (WT < 150 kg, CrCl > 10-29 mL/min) *Enoxaparin/Lovenox 30 mg SQ BID (WT < 150 kg, CrCl > 30 mL/min) AND *Sequential Compression Device (SCD) <Jeni Golden - 12/02/17 12:28> Total Risk Factor Score Risk Level Prophylaxis Regimen 0-1 Low Early ambulation 2 Moderate Order ONE of the following: *Sequential Compression Device (SCD) *Heparin 5000 units SQ BID 3-4 Higher Order ONE of the following medications: *Heparin 5000 units SQ TID *Enoxaparin/Lovenox 40 mg SQ daily (WT < 150 kg, CrCl > 30 mL/min) *Enoxaparin/Lovenox 30 mg SQ daily (WT < 150 kg, CrCl > 10-29 mL/min) *Enoxaparin/Lovenox 30 mg SQ BID (WT < 150 kg, CrCl > 30 mL/min) AND/OR *Sequential Compression Device (SCD) 5 or more Highest Order ONE of the following medications: *Heparin 5000 units SQ TID (Preferred with Epidurals) *Enoxaparin/Lovenox 40 mg SQ daily (WT < 150 kg, CrCl > 30 mL/min) *Enoxaparin/Lovenox 30 mg SQ daily (WT < 150 kg, CrCl > 10-29 mL/min) *Enoxaparin/Lovenox 30 mg SQ BID (WT < 150 kg, CrCl > 30 mL/min) AND *Sequential Compression Device (SCD) <Diana Diaz - 12/01/17 14:22> Assessment and Plan - Assessment (1) Sepsis Code(s): A41.9 - Sepsis, unspecified organism Status: Acute (2) Community acquired pneumonia Code(s): J18.9 - Pneumonia, unspecified organism Status: Acute (3) COPD (chronic obstructive pulmonary disease) Code(s): J44.9 - Chronic obstructive pulmonary disease, unspecified Status: Acute (4) GI bleed Code(s): K92.2 - Gastrointestinal hemorrhage, unspecified Status: Acute (5) Hypothyroid Code(s): E03.9 - Hypothyroidism, unspecified Status: Acute (6) CHF (congestive heart failure) Code(s): I50.9 - Heart failure, unspecified Status: Acute (7) EDWIN (acute kidney injury) Code(s): N17.9 - Acute kidney failure, unspecified Status: Acute (8) Dementia Code(s): F03.90 - Unspecified dementia without behavioral disturbance Status: Acute (9) Dyslipidemia Code(s): E78.5 - Hyperlipidemia, unspecified Status: Acute (10) Bipolar 1 disorder Code(s): F31.9 - Bipolar disorder, unspecified Status: Acute (11) Nutrition, metabolism, and development symptoms Code(s): R63.8 - Other symptoms and signs concerning food and fluid intake Status: Acute <Jeni Golden - 12/02/17 12:28> (1) Sepsis Code(s): A41.9 - Sepsis, unspecified organism Status: Acute Plan: Patient met sepsis criteria on admission with white count of 21.5, tachycardia of 90, and evidence of pneumonia on chest x-ray -Blood cultures drawn -Lactic acid pending -Urinalysis with reflex culture and sensitivity as indicated -IV fluids normal saline 50 mL's per hour, cautious hydration as patient has CHF with EF of 25% -Antibiotics: Rocephin and azithromycin -Follow-up blood cultures and lactic acid (2) Community acquired pneumonia Code(s): J18.9 - Pneumonia, unspecified organism Status: Acute Plan: After discussion with the certified solid waste facility operator who reports only for reports that the facility diagnosis of community-acquired pneumonia was made -Azithromycin 500 mg daily -Rocephin 2 g daily -Duo nebs every 6 -Albuterol every 4 as needed -Prednisone 40 mg daily (3) COPD (chronic obstructive pulmonary disease) Code(s): J44.9 - Chronic obstructive pulmonary disease, unspecified Status: Acute Plan: Patient does not require oxygen at home -Management of community acquired pneumonia/COPD exacerbation as above (4) GI bleed Code(s): K92.2 - Gastrointestinal hemorrhage, unspecified Status: Acute Plan: Hemoccult-positive in ED, unknown colonoscopy history -Hemoglobin stable at 16.6 -GI consulted, appreciate recommendations -We will hold any anticoagulation for now (5) Hypothyroid Code(s): E03.9 - Hypothyroidism, unspecified Status: Acute Plan: Continue home levothyroxine (6) CHF (congestive heart failure) Code(s): I50.9 - Heart failure, unspecified Status: Acute Plan: -Cautious hydration for sepsis with monitoring of shortness of breath -Daily weights -Resume home spironolactone -Limit p.o. fluid intake to 1.5 L per day (7) EDWIN (acute kidney injury) Code(s): N17.9 - Acute kidney failure, unspecified Status: Acute Plan: -Gentle hydration with normal saline 50 mils per hour as patient has CHF -Repeat BMP in a.m. (8) Dementia Code(s): F03.90 - Unspecified dementia without behavioral disturbance Status: Acute Plan: Continue home donepezil (9) Dyslipidemia Code(s): E78.5 - Hyperlipidemia, unspecified Status: Acute Plan: Continue home Lipitor (10) Bipolar 1 disorder Code(s): F31.9 - Bipolar disorder, unspecified Status: Acute Plan: Continue home risperidone (11) Nutrition, metabolism, and development symptoms Code(s): R63.8 - Other symptoms and signs concerning food and fluid intake Status: Acute Plan: Diet: Regular adult diet Fluids: Gentle hydration 50 mls per hour NS DVT prophylaxis: SCDs only for now pending GI workup <Diana Diaz - 12/01/17 15:40> - Assessment and Plan Questions should be referred to brother Rajesh Walker [phone] If unable to reach him can contact Shivani (SARA) [phone] <Diana Diaz - 12/01/17 15:59> Discussed Condition With: Annie Golden and Concha <Diana Diaz - 12/01/17 15:59> - Attending Attestation The exam, history, and the medical decision-making described in the above note were completed with the assistance of the resident physician. I reviewed and agree with the findings presented. I attest that I had a [id number] encounter with the patient on the same day, and personally performed and documented my assessment and findings in the medical record. I saw him in the emergency department when he was being admitted by the residents. Unfortunately he has dementia and is not able to give any sort of meaningful history. <Jeni Golden - 12/02/17 12:28>
[2017-12-01] MEDS: Sod Chloride 0.9% Inj 1,000 ML IV.CONT SCH (15:35)
[2017-12-01] MEDS: Azithromycin Inj 500 MG in Sodium Chlor 0.9% Inj 250 ML IV.SIG SCH (15:35)
--- NOTE | 2017-12-01 15:59 | P.CONGI ---
History of Present Illness Consult date: 12/01/17 Chief complaint: sepsis,healthcare associated pneumonia, History of Present Illness: This is 71-year-old male with history of COPD, CHF, dementia, coronary artery disease, presents from assisted living facility for evaluation of cough and congestion. Patient is not able to provide HPI, this was obtained from employee at the SNF by bed side an EMR. Chest X-ray showed infiltrates. GI consulted for reported coffee ground emesis this morning and heme (+) stools. The patient is not on any blood thinners. hgb on arrival is 16 which same as previous labs in apr. Labs revealed ALYSON with high BUN and creat. No hematemesis witnessed since arrival. No melena or hematochezia reported. <Leonarda Bolden - Last Filed: 12/01/17 15:42> Review of Systems Comments: Pt with dementia, not able to provide ROS <Leonarda Bolden - Last Filed: 12/01/17 15:42> PMFSH - History History Provided By: Patient - Medical History Medical History: Medical History (Last Updated 12/01/17 @ 15:08 by Diana Diaz MD, R1) Bipolar 1 disorder CHF (congestive heart failure) COPD (chronic obstructive pulmonary disease) Dementia Dyslipidemia GERD (gastroesophageal reflux disease) Hypertension Hypothyroid - Surgical History Surgical History: Surgical History (Last Updated 12/01/17 @ 15:08 by Diana Diaz MD, R1) H/O heart bypass surgery - Tobacco History Smoking Status: Former smoker Tobacco Type: Cigarettes - Alcohol History How Often Do You Have a Drink Containing Alcohol: Never - Travel History Recent Travel in the [place] Within the Last 8 Weeks: No Recent Travel Out of the Country Within the Last 8 Weeks: No - Immunization History Tetanus Immunization: Unsure <Leonarda Bolden - Last Filed: 12/01/17 15:42> - Medical History Medical History: Medical History (Last Updated 12/01/17 @ 15:08 by Diana Diaz MD, R1) Bipolar 1 disorder CHF (congestive heart failure) COPD (chronic obstructive pulmonary disease) Dementia Dyslipidemia GERD (gastroesophageal reflux disease) Hypertension Hypothyroid - Surgical History Surgical History: Surgical History (Last Updated 12/01/17 @ 15:08 by iDana Diaz MD, R1) H/O heart bypass surgery <Jade Pinto - Last Filed: 12/02/17 14:33> Medications and Allergies Active Medications: Active Medications Al Hydroxide/Mg Hydroxide (Milk Of Magnesia Liq) 30 ml PO Q12H PRN PRN Reason: Mild Constipation Albuterol (Albuterol Neb (Prn)) 2.5 mg NEB Q4HR NEB PRN PRN Reason: Shortness Of Breath Albuterol (Duoneb Neb (Yahaira)) 1 ampul NEB QID NEB [facility] Atorvastatin Calcium (Lipitor) 20 mg PO DAILY [facility] Cetirizine HCl (Zyrtec) 10 mg PO DAILY [facility] Donepezil HCl (Aricept) 10 mg PO DAILY [facility] Sodium Chloride (Ns Inj) 500 mls @ 0 mls/hr IV.SIG BOLUS YAHAIRA Last Infusion: 12/01/17 14:56 Dose: Infused Azithromycin 500 mg/ Sodium (Chloride) 250 mls @ 250 mls/hr IV.SIG Q24H YAHAIRA Last Admin: 12/01/17 15:35 Dose: 250 mls/hr Ceftriaxone Sodium 2,000 mg/ (Sodium Chloride) 100 mls @ 200 mls/hr IV.SIG Q24H YAHAIRA Sodium Chloride (Ns Inj) 1,000 mls @ 50 mls/hr IV.CONT .Q20H YAHAIRA Last Admin: 12/01/17 15:35 Dose: 50 mls/hr Levothyroxine Sodium (Synthroid) 25 mcg PO DAILY@0600 [facility] Prednisone (Deltasone) 40 mg PO DAILY [facility] Risperidone (Risperdal) 1 mg PO DAILY [facility] Senna/Docusate Sodium (Mikayla-Colace) 1 tab PO BID [facility] Sennosides (Senokot) 17.2 mg PO Q12H PRN PRN Reason: Moderate Constipation Spironolactone (Aldactone) 25 mg PO DAILY [facility] Trazodone HCl (Desyrel) 50 mg PO DAILY [facility] <Leonarda Bolden - Last Filed: 12/01/17 15:42> Active Medications: Active Medications Al Hydroxide/Mg Hydroxide (Milk Of Magnesia Liq) 30 ml PO Q12H PRN PRN Reason: Mild Constipation Albuterol (Albuterol Neb (Prn)) 2.5 mg NEB Q4HR NEB PRN PRN Reason: Shortness Of Breath Albuterol (Duoneb Neb (Yahaira)) 1 ampul NEB QID NEB YAHAIRA Last Admin: 12/02/17 12:00 Dose: 1 ampul Atorvastatin Calcium (Lipitor) 20 mg PO DAILY [facility] Last Admin: 12/02/17 09:29 Dose: 20 mg Cetirizine HCl (Zyrtec) 10 mg PO DAILY [facility] Last Admin: 12/02/17 09:30 Dose: 10 mg Cod Liver Oil/Zinc Oxide (Desitin 40% Oint) 1 applicatio TOPICAL PRN PRN PRN Reason: RASH Donepezil HCl (Aricept) 10 mg PO DAILY [facility] Last Admin: 12/02/17 09:31 Dose: 10 mg Sodium Chloride (Ns Inj) 500 mls @ 0 mls/hr IV.SIG BOLUS [facility] Last Infusion: 12/01/17 14:56 Dose: Infused Azithromycin 500 mg/ Sodium (Chloride) 250 mls @ 250 mls/hr IV.SIG Q24H [facility] Last Infusion: 12/01/17 16:47 Dose: Infused Ceftriaxone Sodium 2,000 mg/ (Sodium Chloride) 100 mls @ 200 mls/hr IV.SIG Q24H [facility] Last Infusion: 12/01/17 18:21 Dose: Infused Sodium Chloride (Ns Inj) 1,000 mls @ 100 mls/hr IV.CONT .Q10H [facility] Levothyroxine Sodium (Synthroid) 25 mcg PO DAILY@0600 [facility] Last Admin: 12/02/17 05:53 Dose: 25 mcg Prednisone (Deltasone) 40 mg PO DAILY [facility] Last Admin: 12/02/17 09:29 Dose: 40 mg Risperidone (Risperdal) 1 mg PO DAILY [facility] Last Admin: 12/02/17 09:31 Dose: 1 mg Senna/Docusate Sodium (Mikayla-Colace) 1 tab PO BID [facility] Last Admin: 12/02/17 09:31 Dose: 1 tab Sennosides (Senokot) 17.2 mg PO Q12H PRN PRN Reason: Moderate Constipation Spironolactone (Aldactone) 25 mg PO DAILY [facility] Last Admin: 12/02/17 09:31 Dose: 25 mg Trazodone HCl (Desyrel) 50 mg PO DAILY [facility] Last Admin: 12/02/17 09:29 Dose: 50 mg <Jade Pinto A - Last Filed: 12/02/17 14:33> Allergies Allergy/AdvReac Type Severity Reaction Status Date / Time bee venom protein (honey bee) Allergy Unknown Unverified 11/09/16 22:10 MRI PRECAUTION AdvReac Severe Abandoned Uncoded 05/11/17 09:45 pacer wire. 05/11/17 LRS Home Medications Medication Instructions Recorded Confirmed Type albuterol sulfate 2.5 mg INHALATION Q4-6H PRN 12/01/17 12/01/17 History atorvastatin 20 mg PO DAILY 12/01/17 12/01/17 History carboxymethylcell-glycerin(PF) 0.5 % OPHTHALMIC (EYE) QID 12/01/17 12/01/17 History cetirizine 10 mg PO DAILY 12/01/17 12/01/17 History clonidine HCl 0.1 mg PO DAILY 12/01/17 12/01/17 History donepezil 10 mg PO DAILY 12/01/17 12/01/17 History ipratropium-albuterol 0.5 - 3 mg INHALATION QID 12/01/17 12/01/17 History levothyroxine 25 mcg PO DAILY 12/01/17 12/01/17 History mupirocin 1 applic TOPICAL BID 12/01/17 12/01/17 History naltrexone 50 mg PO DAILY 12/01/17 12/01/17 History oxybutynin chloride 5 mg PO BID 12/01/17 12/01/17 History risperidone 1 mg PO DAILY 12/01/17 12/01/17 History spironolactone 25 mg PO DAILY 12/01/17 12/01/17 History trazodone 50 mg PO DAILY 12/01/17 12/01/17 History Exam Vital signs: Vital Signs 12/01/17 10:52 12/01/17 11:13 12/01/17 12:25 Pulse Rate 98 H Respiratory Rate 18 Blood Pressure 129/83 Pulse Oximetry 96 96 96 12/01/17 15:27 Pulse Rate 90 Respiratory Rate 18 Blood Pressure 130/79 Pulse Oximetry 96 Intake & Output 11/30/17 12/01/17 12/01/17 18:59 06:59 18:59 Intake Total 850 / 850 Balance 850 / 850 Intake: IV 850 / 850 Zosyn 4.5 GM Premix 4.5 gm In 100 / 100 100 ml @ 200 mls/hr IV.SIG STAT STA Rx#:[id number] NS Inj 500 ML @ Wide Open IV. 500 / 500 SIG BOLUS YAHAIRA Rx#:[id number] Vancomycin Inj 1,000 MG In NS 250 / 250 Inj 250 ML @ 250 mls/hr IV.SIG STAT STA Rx#:[id number] - Constitutional no acute distress - Routine HEENT Exam Head: Present: normocephalic - Routine Respiratory Exam Present: wheezes, crackles. Absent: accessory muscle use - Routine Cardiovascular Exam Present: RRR - Routine Abdominal Exam Present: soft, normoactive bowel sounds. Absent: tenderness, distended - Routine Extremities Exam Absent: edema - Routine Skin Exam Present: intact, dry. Absent: jaundice - Routine Neurological Exam Present: alert <Leonarda Bolden - Last Filed: 12/01/17 15:42> Vital signs: Vital Signs 12/01/17 15:27 12/01/17 16:00 12/01/17 20:00 Temperature 97.6 F 98.4 F Pulse Rate 90 92 H 88 Respiratory Rate 18 20 28 H Blood Pressure 130/79 149/84 H 120/69 Pulse Oximetry 96 98 95 12/01/17 20:05 12/02/17 00:00 12/02/17 04:00 Temperature 99.5 F 98.7 F Pulse Rate 67 90 80 Respiratory Rate 28 H 22 18 Blood Pressure 114/74 109/58 L Pulse Oximetry 95 94 L 94 L 12/02/17 08:00 12/02/17 08:06 12/02/17 12:00 Temperature 97.0 F L 98.1 F Pulse Rate 90 77 81 Respiratory Rate 18 16 16 Blood Pressure 122/56 L 116/68 Pulse Oximetry 93 L 93 L 94 L 12/02/17 12:01 Temperature Pulse Rate 78 Respiratory Rate 16 Blood Pressure Pulse Oximetry Intake & Output 12/01/17 12/02/17 12/02/17 18:59 06:59 18:59 Intake Total 1200 / 1200 1000 / 1000 Balance 1200 / 1200 1000 / 1000 Weight 58.9 kg Intake: IV 1200 / 1200 1000 / 1000 NS Inj 1,000 ML @ 50 mls/hr IV. 1000 / 1000 CONT .Q20H YAHAIRA Rx#:[id number] Azithromycin Inj 500 MG In NS 250 / 250 Inj 250 ML @ 250 mls/hr IV.SIG Q24H YAHAIRA Rx#:[id number] Zosyn 4.5 GM Premix 4.5 gm In 100 / 100 100 ml @ 200 mls/hr IV.SIG STAT STA Rx#:[id number] NS Inj 500 ML @ Wide Open IV. 500 / 500 SIG BOLUS YAHAIRA Rx#:[id number] Vancomycin Inj 1,000 MG In NS 250 / 250 Inj 250 ML @ 250 mls/hr IV.SIG STAT STA Rx#:[id number] Rocephin Inj 2,000 MG In NS Inj 100 / 100 100 ML @ 200 mls/hr IV.SIG Q24H YAHAIRA Rx#:[id number] Other: # Incontinent Voids 1 Date of Last Bowel Movement 12/01/17 12/01/17 <Jade Pinto A - Last Filed: 12/02/17 14:33> Results - Labs CBC & Chem 7: 12/01/17 12:10 12/01/17 12:10 Labs: Laboratory Results - last 24 hr 12/01/17 12/01/17 12/01/17 12:10 12:10 12:10 WBC 21.5 H RBC 5.15 Hgb 16.6 Hct 50.0 MCV 97.1 MCH 32.2 MCHC 33.2 RDW 13.5 Plt Count 246 MPV 9.1 Prelim Diff (Auto) Manual diff required WBC Differential Manual diff final Seg Neuts % (Manual) 72 H Band Neuts % (Manual) 20 H Lymphocytes % (Manual) 1 L Monocytes % (Manual) 7 Abs Neuts (Manual) 19.8 H Differential Comment . Platelet Estimate Normal Platelet Morphology Normal RBC Morphology Normal PT 12.0 H INR 1.2 APTT 27.3 Sodium 141 Potassium 4.4 Chloride 109 H Carbon Dioxide 17.0 L Anion Gap 15 BUN 50 H Creatinine 1.52 H Estimated GFR 46 L Random Glucose 139 H Calcium 8.7 Magnesium 2.0 Total Bilirubin 1.3 H AST 42 H ALT 19 Alkaline Phosphatase 69 Total Creatine Kinase 512 H CK-MB (CK-2) 10.1 H CK-MB (CK-2) % 2.0 Troponin I 0.03 B-Natriuretic Peptide Total Protein 8.2 Albumin 3.9 Blood Type Antibody Screen Antibody Identification 12/01/17 12/01/17 12/01/17 12:10 12:10 12:10 WBC RBC Hgb Hct MCV MCH MCHC RDW Plt Count MPV Prelim Diff (Auto) WBC Differential Seg Neuts % (Manual) Band Neuts % (Manual) Lymphocytes % (Manual) Monocytes % (Manual) Abs Neuts (Manual) Differential Comment Platelet Estimate Platelet Morphology RBC Morphology PT INR APTT Sodium Potassium Chloride Carbon Dioxide Anion Gap BUN Creatinine Estimated GFR Random Glucose Calcium Magnesium Total Bilirubin AST ALT Alkaline Phosphatase Total Creatine Kinase CK-MB (CK-2) CK-MB (CK-2) % Troponin I B-Natriuretic Peptide 142 H Total Protein Albumin Blood Type O Positive Antibody Screen Positive H Antibody Identification Anti-c - Imaging Impressions Chest X-Ray 12/01/17 11:13 CONCLUSION: Left lung infiltrates <Leonarda Bolden - Last Filed: 12/01/17 15:42> - Labs CBC & Chem 7: 12/02/17 05:36 12/02/17 05:36 Labs: Laboratory Results - last 24 hr 12/01/17 12/01/17 12/01/17 12:10 15:17 18:00 WBC RBC Hgb Hct MCV MCH MCHC RDW Plt Count MPV Prelim Diff (Auto) Neut % (Auto) Lymph % (Auto) [place] % (Auto) Eos % (Auto) Baso % (Auto) Neut # (Auto) Lymph # (Auto) [place] # (Auto) Eos # (Auto) Baso # (Auto) WBC Differential Seg Neuts % (Manual) Band Neuts % (Manual) Lymphocytes % (Manual) Monocytes % (Manual) Metamyelocytes % (Man) Abs Neuts (Manual) Differential Comment Platelet Estimate Platelet Morphology Sodium Potassium Chloride Carbon Dioxide Anion Gap BUN Creatinine Estimated GFR Random Glucose Lactic Acid 6.4 H* Calcium Total Creatine Kinase CK-MB (CK-2) CK-MB (CK-2) % Urine Color Yellow Urine Clarity Cloudy H Urine pH 5.0 Ur Specific [place] 1.024 Urine Protein Negative Urine Glucose (UA) 500 or greater Urine Ketones Trace H Urine Occult Blood Moderate H Urine Nitrate Negative Urine Bilirubin Negative Urine Urobilinogen Less than 2 Ur Leukocyte Esterase Negative Urine RBC 2 Urine WBC 6 H Ur Squamous Epith Cells <1 Amorphous Sediment Rare H Urine Bacteria Rare H Urine Mucus Few H Micro UA Comment Cath-culture ind Ur Microscopic Review Not Reportable Urine Culture Comments Cath-cult indicated Blood Type O Positive Antibody Screen Positive H MTS Gel Crossmatch See Detail Bld Prod Order Comment 12/01/17 12/02/17 12/02/17 20:34 05:36 05:36 WBC 16.6 H RBC 4.21 L Hgb 13.7 D Hct 39.9 MCV 94.8 MCH 32.5 MCHC 34.3 RDW 13.1 Plt Count 207 MPV 8.6 Prelim Diff (Auto) Slide review pending Neut % (Auto) 89.9 H Lymph % (Auto) 3.0 L [place] % (Auto) 7.0 Eos % (Auto) 0.0 Baso % (Auto) 0.1 Neut # (Auto) 14.9 H Lymph # (Auto) 0.5 L [place] # (Auto) 1.2 H Eos # (Auto) 0.0 Baso # (Auto) 0.0 WBC Differential Manual diff final Seg Neuts % (Manual) 66 Band Neuts % (Manual) 24 H Lymphocytes % (Manual) 1 L Monocytes % (Manual) 7 Metamyelocytes % (Man) 2 H Abs Neuts (Manual) 15.3 H Differential Comment . Platelet Estimate Normal Platelet Morphology Normal Sodium 146 H Potassium 3.8 Chloride 115 H Carbon Dioxide 21.1 Anion Gap 10 BUN 38 H Creatinine 0.93 Estimated GFR 81 L Random Glucose 114 H Lactic Acid 3.2 H Calcium 8.0 L Total Creatine Kinase CK-MB (CK-2) CK-MB (CK-2) % Urine Color Urine Clarity Urine pH Ur Specific [place] Urine Protein Urine Glucose (UA) Urine Ketones Urine Occult Blood Urine Nitrate Urine Bilirubin Urine Urobilinogen Ur Leukocyte Esterase Urine RBC Urine WBC Ur Squamous Epith Cells Amorphous Sediment Urine Bacteria Urine Mucus Micro UA Comment Ur Microscopic Review Urine Culture Comments Blood Type Antibody Screen MTS Gel Crossmatch Bld Prod Order Comment 12/02/17 12/02/17 05:36 05:36 WBC RBC Hgb Hct MCV MCH MCHC RDW Plt Count MPV Prelim Diff (Auto) Neut % (Auto) Lymph % (Auto) [place] % (Auto) Eos % (Auto) Baso % (Auto) Neut # (Auto) Lymph # (Auto) [place] # (Auto) Eos # (Auto) Baso # (Auto) WBC Differential Seg Neuts % (Manual) Band Neuts % (Manual) Lymphocytes % (Manual) Monocytes % (Manual) Metamyelocytes % (Man) Abs Neuts (Manual) Differential Comment Platelet Estimate Platelet Morphology Sodium Potassium Chloride Carbon Dioxide Anion Gap BUN Creatinine Estimated GFR Random Glucose Lactic Acid 1.9 Calcium Total Creatine Kinase 1663 H CK-MB (CK-2) 10.9 H CK-MB (CK-2) % 0.7 Urine Color Urine Clarity Urine pH Ur Specific [place] Urine Protein Urine Glucose (UA) Urine Ketones Urine Occult Blood Urine Nitrate Urine Bilirubin Urine Urobilinogen Ur Leukocyte Esterase Urine RBC Urine WBC Ur Squamous Epith Cells Amorphous Sediment Urine Bacteria Urine Mucus Micro UA Comment Ur Microscopic Review Urine Culture Comments Blood Type Antibody Screen MTS Gel Crossmatch Bld Prod Order Comment - Imaging Impressions Chest X-Ray 12/02/17 05:00 CONCLUSION: Worsening edema or pneumonia. <Jade Pinto - Last Filed: 12/02/17 14:33> Assessment and Plan - Plan -Coffee ground emesis/ heme (+) stools- One episode of coffee ground emesis this morning and heme (+) stools. The patient is not on any blood thinners. hgb on arrival is 16 which same as previous labs in apr. Labs revealed ALYSON with high BUN and creat. No hematemesis witnessed since arrival. No melena or hematochezia reported. - ALYSON- possibly due to acute GI bleed - CAP- Chest X-ray showed infiltrates. - Leukocytosis- secondary to above, ? UTI as well - History of COPD, CHF, dementia, coronary artery disease, per attending Plan: - Diet per attending - Pt not medically stable at this time for any procedures - No signs of active bleed at this time - Monitor hh - Transfuse as needed - Notify GI for active bleed - Pt seen and examined by Dr. pinto and myself and this note is written on his behalf <Leonarda Bolden - Last Filed: 12/01/17 15:42> - Attending Attestation Seen and examined with yris Brower as above. No signs of active GI bleeding, tolerating diet well. Will follow up with you as needed. Thank you for the consult. <Jade Pinto - Last Filed: 12/02/17 14:33>
[2017-12-01 18:44] LABS: Amorphous Sediment,Urine Rare /hpf; Bacteria,Urine Rare /hpf; Bilirubin,Urine Negative (Negative); Clarity,Urine Cloudy (Clear); Color,Urine Yellow (Yellw/Straw); Glucose,Urine (UA) 500 or Greater mg/dL (Negative); Leukocyte Esterase,Urine Negative (Negative); Mucus,Urine Few /lpf (Occasional); Nitrite,Urine Negative (Negative); Specific Gravity,Urine 1.024 (1.002-1.035); Squamous Epithelial Cell,Urine <1 /hpf (0-5)
[2017-12-01] MEDS: Senna/Docusate Sodium 8.6/50 MG Tablet PO SCH (21:00)
[2017-12-02 06:48] LABS: Baso % (Auto) 0.1 % (0.0-2.0); Hematocrit 39.9 % (39.0-51.0); Hemoglobin 13.7 gm/dL (13.0-17.0); Lymph # (Auto) 0.5 th/mm3 (1.0-4.8); Mean Corpuscular HGB Conc 34.3 % (32.0-36.0); Mean Corpuscular Hemoglobin 32.5 pg (27.0-34.0); Mean Corpuscular Volume 94.8 fL (80.0-100.0); Mean Platelet Volume 8.6 fL (7.0-11.0); Mono # (Auto) 1.2 th/mm3 (0.0-0.9); Neut # (Auto) 14.9 th/mm3 (1.8-7.7); Neut % (Auto) 89.9 % (16.0-70.0); Platelet Count 207 th/mm3 (150-450); Red Blood Count 4.21 mil/mm3 (4.50-5.90); Red Cell Distribution Width 13.1 % (11.6-17.2); White Blood Count 16.6 th/mm3 (4.0-11.0)
[2017-12-02 07:18] LABS: Carbon Dioxide 21.1 meq/L (21.0-32.0); Potassium 3.8 meq/L (3.5-5.1)
[2017-12-02 07:51] LABS: CKMB Percent 0.7 % (0.0-4.0); Creatine Kinase MB 10.9 ng/mL (0.5-3.6)
[2017-12-02 08:12] LABS: Lymphocytes 1 % (9-44); Metamyelocytes 2 % (0-1); Monocytes 7 % (0-8)
[2017-12-02 08:13] LABS: Platelet Estimate Normal (Normal); Platelet Morphology Normal (Normal)
--- NOTE | 2017-12-02 08:59 | P.HPFP ---
History of Present Illness Primary Care Physician: Physician [facility] History of Present Illness: Mr Walker is a 71-year-old male with past medical history of dementia who is relatively noncommunicative. History obtained from ED note as well as service coordinator elderly facility where he resides. Patient lives at [facility]. 3 days ago patient began to have cough and chest congestion. Today he had a single episode of dark colored posttussive emesis. Associated symptoms are fatigue. Denies fevers or changes in diet. Patient is not on any blood thinners. - Diagnosis (1) Sepsis (2) Community acquired pneumonia (3) COPD (chronic obstructive pulmonary disease) (4) GI bleed (5) Hypothyroid (6) CHF (congestive heart failure) (7) EDWIN (acute kidney injury) (8) Dementia (9) Dyslipidemia (10) Bipolar 1 disorder (11) Nutrition, metabolism, and development symptoms Inpatient Certification: I certify that the inpatient services were ordered in accordance with Medicare regulations governing the order. This includes certification that hospital inpatient services are reasonable and necessary and in the case of services not specified as inpatient-only under 42 CFR 419.22(n), that they are appropriately provided as inpatient services in accordance to with the 2-midnight benchmark under 43 CFR 412.3(e) Estimated Total Length of Stay (Days): 3 Plans for Post Hospital Care: Other Review of Systems unobtainable due to mental status PMFSH - History History Provided By: Patient, Medical Record - Medical / Surgical Hx Neg / Unobtainable Medical Problems Denied: Unable to Obtain Surgical History: Unable to Obtain - Medical History Medical History: Medical History (Last Reviewed 12/02/17 @ 06:34 by Hipolito Be) Bipolar 1 disorder CHF (congestive heart failure) COPD (chronic obstructive pulmonary disease) Dementia Dyslipidemia GERD (gastroesophageal reflux disease) Hypertension Hypothyroid - Surgical History Surgical History: Surgical History (Last Reviewed 12/02/17 @ 06:34 by Hipolito Be) H/O heart bypass surgery - Social History I have reviewed the patient's Social History: Yes - Tobacco History Smoking Status: Former smoker Tobacco Type: Cigarettes - Alcohol History How Often Do You Have a Drink Containing Alcohol: Never - Travel History Recent Travel in the [place] Within the Last 8 Weeks: No Recent Travel Out of the Country Within the Last 8 Weeks: No - Immunization History Tetanus Immunization: Unsure Medications and Allergies Active Medications: Active Medications Al Hydroxide/Mg Hydroxide (Milk Of Magndanny Liq) 30 ml PO Q12H PRN PRN Reason: Mild Constipation Albuterol (Albuterol Neb (Prn)) 2.5 mg NEB Q4HR NEB PRN PRN Reason: Shortness Of Breath Albuterol (Duoneb Neb (Yahaira)) 1 ampul NEB QID NEB [facility] Last Admin: 12/02/17 08:05 Dose: 1 ampul Atorvastatin Calcium (Lipitor) 20 mg PO DAILY [facility] Cetirizine HCl (Zyrtec) 10 mg PO DAILY [facility] Cod Liver Oil/Zinc Oxide (Desitin 40% Oint) 1 applicatio TOPICAL PRN PRN PRN Reason: RASH Donepezil HCl (Aricept) 10 mg PO DAILY [facility] Sodium Chloride (Ns Inj) 500 mls @ 0 mls/hr IV.SIG BOLUS [facility] Last Infusion: 12/01/17 14:56 Dose: Infused Azithromycin 500 mg/ Sodium (Chloride) 250 mls @ 250 mls/hr IV.SIG Q24H [facility] Last Infusion: 12/01/17 16:47 Dose: Infused Ceftriaxone Sodium 2,000 mg/ (Sodium Chloride) 100 mls @ 200 mls/hr IV.SIG Q24H [facility] Last Infusion: 12/01/17 18:21 Dose: Infused Sodium Chloride (Ns Inj) 1,000 mls @ 50 mls/hr IV.CONT .Q20H [facility] Last Admin: 12/01/17 15:35 Dose: 50 mls/hr Levothyroxine Sodium (Synthroid) 25 mcg PO DAILY@0600 [facility] Last Admin: 12/02/17 05:53 Dose: 25 mcg Prednisone (Deltasone) 40 mg PO DAILY [facility] Risperidone (Risperdal) 1 mg PO DAILY [facility] Senna/Docusate Sodium (Mikayla-Colace) 1 tab PO BID [facility] Last Admin: 12/01/17 21:00 Dose: Not Given Sennosides (Senokot) 17.2 mg PO Q12H PRN PRN Reason: Moderate Constipation Spironolactone (Aldactone) 25 mg PO DAILY [facility] Trazodone HCl (Desyrel) 50 mg PO DAILY [facility] Allergies Allergy/AdvReac Type Severity Reaction Status Date / Time bee venom protein (honey bee) Allergy Unknown Unverified 11/09/16 22:10 MRI PRECAUTION AdvReac Severe Abandoned Uncoded 05/11/17 09:45 pacer wire. 05/11/17 LRS Home Medications Medication Instructions Recorded Confirmed Type albuterol sulfate 2.5 mg INHALATION Q4-6H PRN 12/01/17 12/01/17 History atorvastatin 20 mg PO DAILY 12/01/17 12/01/17 History carboxymethylcell-glycerin(PF) 0.5 % OPHTHALMIC (EYE) QID 12/01/17 12/01/17 History cetirizine 10 mg PO DAILY 12/01/17 12/01/17 History clonidine HCl 0.1 mg PO DAILY 12/01/17 12/01/17 History donepezil 10 mg PO DAILY 12/01/17 12/01/17 History ipratropium-albuterol 0.5 - 3 mg INHALATION QID 12/01/17 12/01/17 History levothyroxine 25 mcg PO DAILY 12/01/17 12/01/17 History mupirocin 1 applic TOPICAL BID 12/01/17 12/01/17 History naltrexone 50 mg PO DAILY 12/01/17 12/01/17 History oxybutynin chloride 5 mg PO BID 12/01/17 12/01/17 History risperidone 1 mg PO DAILY 12/01/17 12/01/17 History spironolactone 25 mg PO DAILY 12/01/17 12/01/17 History trazodone 50 mg PO DAILY 12/01/17 12/01/17 History Exam Vital signs: Vital Signs 12/01/17 10:52 12/01/17 11:13 12/01/17 11:25 Temperature 98.6 F Pulse Rate 98 H 82 Respiratory Rate 18 17 Blood Pressure 129/83 125/62 Pulse Oximetry 96 96 96 12/01/17 12:25 12/01/17 15:27 12/01/17 16:00 Temperature 97.6 F Pulse Rate 90 92 H Respiratory Rate 18 20 Blood Pressure 130/79 149/84 H Pulse Oximetry 96 96 98 12/01/17 20:00 12/01/17 20:05 12/02/17 00:00 Temperature 98.4 F 99.5 F Pulse Rate 88 67 90 Respiratory Rate 28 H 28 H 22 Blood Pressure 120/69 114/74 Pulse Oximetry 95 95 94 L 12/02/17 04:00 12/02/17 08:00 12/02/17 08:06 Temperature 98.7 F 97.0 F L Pulse Rate 80 90 77 Respiratory Rate 18 18 16 Blood Pressure 109/58 L 122/56 L Pulse Oximetry 94 L 93 L 93 L Intake & Output 12/01/17 12/02/17 12/02/17 18:59 06:59 18:59 Intake Total 1200 / 1200 Balance 1200 / 1200 Weight 58.9 kg Intake: IV 1200 / 1200 Azithromycin Inj 500 MG In NS 250 / 250 Inj 250 ML @ 250 mls/hr IV.SIG Q24H YAHAIRA Rx#:[id number] Zosyn 4.5 GM Premix 4.5 gm In 100 / 100 100 ml @ 200 mls/hr IV.SIG STAT STA Rx#:[id number] NS Inj 500 ML @ Wide Open IV. 500 / 500 SIG BOLUS YAHAIRA Rx#:[id number] Vancomycin Inj 1,000 MG In NS 250 / 250 Inj 250 ML @ 250 mls/hr IV.SIG STAT STA Rx#:[id number] Rocephin Inj 2,000 MG In NS Inj 100 / 100 100 ML @ 200 mls/hr IV.SIG Q24H YAHAIRA Rx#:[id number] Other: # Incontinent Voids 1 Date of Last Bowel Movement 12/01/17 Narrative: GENERAL: Elderly demented gentleman who appears acutely ill with coughing and some increased respiratory rate, does appear improved on today's exam compared to yesterday when he was admitted SKIN: Warm and dry. Slight erythema over his coccyx no open wounds or skin also does have scratch patel self-inflicted on his arm left thigh and elsewhere. HEAD: Atraumatic. Normocephalic. EYES: Pupils equal and round. No scleral icterus. No injection or drainage. ENT: No nasal bleeding or discharge. Mucous membranes pink and moist. NECK: Trachea midline. No JVD. CARDIOVASCULAR: Regular rate and rhythm. Distant heart sounds as they are overwhelmed by his respiratory exam RESPIRATORY: No accessory muscle use. Rhonchi heard especially well on the left side no rales. Some airway coarse sounds throughout. GASTROINTESTINAL: Abdomen soft, non-tender, nondistended. Hepatic and splenic margins not palpable. MUSCULOSKELETAL: Extremities without clubbing, cyanosis, or edema. No obvious deformities. NEUROLOGICAL: Awake and alert. No obvious cranial nerve deficits. Motor grossly within normal limits. Five out of 5 muscle strength in the arms and legs. Does not speak in sentences may at best say yes or no PSYCHIATRIC: Unable to assess his insight he does not have the capacity to make decisions his sister is power of fermentation operator Results - Labs Result diagrams: 12/02/17 05:36 12/02/17 05:36 Abnormal lab results 12/01/17 12/01/17 12/01/17 Range/Units 12:10 12:10 12:10 WBC 21.5 H (4.0-11.0) th/mm3 RBC (4.50-5.90) mil/mm3 Neut % (Auto) (16.0-70.0) % Lymph % (Auto) (9.0-44.0) % Neut # (Auto) (1.8-7.7) th/mm3 Lymph # (Auto) (1.0-4.8) th/mm3 [facility] [facility] # (Auto) (0.0-0.9) th/mm3 Seg Neuts % (Manual) 72 H (16-70) % Band Neuts % (Manual) 20 H (0-6) % Lymphocytes % (Manual) 1 L (9-44) % Metamyelocytes % (Man) (0-1) % Abs Neuts (Manual) 19.8 H (1.8-7.7) th/mm3 PT 12.0 H (9.8-11.6) sec Sodium (136-145) meq/L Chloride 109 H (98-107) meq/L Carbon Dioxide 17.0 L (21.0-32.0) meq/L BUN 50 H (7-18) mg/dL Creatinine 1.52 H (0.60-1.30) mg/dL Estimated GFR 46 L (>89) mL/min Random Glucose 139 H (74-106) mg/dL Lactic Acid (0.4-2.0) mmol/L Calcium (8.5-10.1) mg/dL Total Bilirubin 1.3 H (0.2-1.0) mg/dL AST 42 H (15-37) U/L Total Creatine Kinase 512 H (39-308) U/L CK-MB (CK-2) 10.1 H (0.5-3.6) ng/mL B-Natriuretic Peptide (0-100) pg/mL Urine Clarity (Clear) Urine Ketones (Negative) mg/dL Urine Occult Blood (Negative) Urine WBC (0-5) /hpf Amorphous Sediment (None) /hpf Urine Bacteria (None) /hpf Urine Mucus (Occasional) /lpf Antibody Screen MTS Gel Crossmatch 12/01/17 12/01/17 12/01/17 Range/Units 12:10 12:10 15:17 WBC (4.0-11.0) th/mm3 RBC (4.50-5.90) mil/mm3 Neut % (Auto) (16.0-70.0) % Lymph % (Auto) (9.0-44.0) % Neut # (Auto) (1.8-7.7) th/mm3 Lymph # (Auto) (1.0-4.8) th/mm3 [facility] [facility] # (Auto) (0.0-0.9) th/mm3 Seg Neuts % (Manual) (16-70) % Band Neuts % (Manual) (0-6) % Lymphocytes % (Manual) (9-44) % Metamyelocytes % (Man) (0-1) % Abs Neuts (Manual) (1.8-7.7) th/mm3 PT (9.8-11.6) sec Sodium (136-145) meq/L Chloride (98-107) meq/L Carbon Dioxide (21.0-32.0) meq/L BUN (7-18) mg/dL Creatinine (0.60-1.30) mg/dL Estimated GFR (>89) mL/min Random Glucose (74-106) mg/dL Lactic Acid 6.4 H* (0.4-2.0) mmol/L Calcium (8.5-10.1) mg/dL Total Bilirubin (0.2-1.0) mg/dL AST (15-37) U/L Total Creatine Kinase (39-308) U/L CK-MB (CK-2) (0.5-3.6) ng/mL B-Natriuretic Peptide 142 H (0-100) pg/mL Urine Clarity (Clear) Urine Ketones (Negative) mg/dL Urine Occult Blood (Negative) Urine WBC (0-5) /hpf Amorphous Sediment (None) /hpf Urine Bacteria (None) /hpf Urine Mucus (Occasional) /lpf Antibody Screen Positive H MTS Gel Crossmatch See Detail 12/01/17 12/01/17 12/02/17 Range/Units 18:00 20:34 05:36 WBC 16.6 H (4.0-11.0) th/mm3 RBC 4.21 L (4.50-5.90) mil/mm3 Neut % (Auto) 89.9 H (16.0-70.0) % Lymph % (Auto) 3.0 L (9.0-44.0) % Neut # (Auto) 14.9 H (1.8-7.7) th/mm3 Lymph # (Auto) 0.5 L (1.0-4.8) th/mm3 [facility] [facility] # (Auto) 1.2 H (0.0-0.9) th/mm3 Seg Neuts % (Manual) (16-70) % Band Neuts % (Manual) 24 H (0-6) % Lymphocytes % (Manual) 1 L (9-44) % Metamyelocytes % (Man) 2 H (0-1) % Abs Neuts (Manual) 15.3 H (1.8-7.7) th/mm3 PT (9.8-11.6) sec Sodium (136-145) meq/L Chloride (98-107) meq/L Carbon Dioxide (21.0-32.0) meq/L BUN (7-18) mg/dL Creatinine (0.60-1.30) mg/dL Estimated GFR (>89) mL/min Random Glucose (74-106) mg/dL Lactic Acid 3.2 H (0.4-2.0) mmol/L Calcium (8.5-10.1) mg/dL Total Bilirubin (0.2-1.0) mg/dL AST (15-37) U/L Total Creatine Kinase (39-308) U/L CK-MB (CK-2) (0.5-3.6) ng/mL B-Natriuretic Peptide (0-100) pg/mL Urine Clarity Cloudy H (Clear) Urine Ketones Trace H (Negative) mg/dL Urine Occult Blood Moderate H (Negative) Urine WBC 6 H (0-5) /hpf Amorphous Sediment Rare H (None) /hpf Urine Bacteria Rare H (None) /hpf Urine Mucus Few H (Occasional) /lpf Antibody Screen MTS Gel Crossmatch 12/02/17 12/02/17 Range/Units 05:36 05:36 WBC (4.0-11.0) th/mm3 RBC (4.50-5.90) mil/mm3 Neut % (Auto) (16.0-70.0) % Lymph % (Auto) (9.0-44.0) % Neut # (Auto) (1.8-7.7) th/mm3 Lymph # (Auto) (1.0-4.8) th/mm3 [facility] # (Auto) (0.0-0.9) th/mm3 Seg Neuts % (Manual) (16-70) % Band Neuts % (Manual) (0-6) % Lymphocytes % (Manual) (9-44) % Metamyelocytes % (Man) (0-1) % Abs Neuts (Manual) (1.8-7.7) th/mm3 PT (9.8-11.6) sec Sodium 146 H (136-145) meq/L Chloride 115 H (98-107) meq/L Carbon Dioxide (21.0-32.0) meq/L BUN 38 H (7-18) mg/dL Creatinine (0.60-1.30) mg/dL Estimated GFR 81 L (>89) mL/min Random Glucose 114 H (74-106) mg/dL Lactic Acid (0.4-2.0) mmol/L Calcium 8.0 L (8.5-10.1) mg/dL Total Bilirubin (0.2-1.0) mg/dL AST (15-37) U/L Total Creatine Kinase 1663 H (39-308) U/L CK-MB (CK-2) 10.9 H (0.5-3.6) ng/mL B-Natriuretic Peptide (0-100) pg/mL Urine Clarity (Clear) Urine Ketones (Negative) mg/dL Urine Occult Blood (Negative) Urine WBC (0-5) /hpf Amorphous Sediment (None) /hpf Urine Bacteria (None) /hpf Urine Mucus (Occasional) /lpf Antibody Screen MTS Gel Crossmatch Short CBC 12/01/17 12/02/17 Range/Units 12:10 05:36 WBC 21.5 H 16.6 H (4.0-11.0) th/mm3 Hgb 16.6 13.7 D (13.0-17.0) gm/dL Hct 50.0 39.9 (39.0-51.0) % Plt Count 246 207 (150-450) th/mm3 BMP 12/01/17 12/02/17 12:10 05:36 Sodium 141 146 H Potassium 4.4 3.8 Chloride 109 H 115 H Carbon Dioxide 17.0 L 21.1 BUN 50 H 38 H Creatinine 1.52 H 0.93 Calcium 8.7 8.0 L Cardiac Enzymes 12/01/17 12/02/17 Range/Units 12:10 05:36 Total Creatine Kinase 512 H 1663 H (39-308) U/L CK-MB (CK-2) 10.1 H 10.9 H (0.5-3.6) ng/mL Troponin I 0.03 (0.02-0.05) ng/mL Liver Function 12/01/17 Range/Units 12:10 Total Bilirubin 1.3 H (0.2-1.0) mg/dL AST 42 H (15-37) U/L ALT 19 (12-78) U/L Alkaline Phosphatase 69 (45-117) U/L Albumin 3.9 (3.4-5.0) g/dL Urine 12/01/17 Range/Units 18:00 Urine Color Yellow (Yellw/Straw) Urine Clarity Cloudy H (Clear) Urine pH 5.0 (5.0-8.5) Ur Specific [place] 1.024 (1.002-1.035) Urine Protein Negative (Neg-Trace) mg/dL Urine Glucose (UA) 500 or greater (Negative) mg/dL - Imaging Impressions Chest X-Ray 12/01/17 11:13 CONCLUSION: Left lung infiltrates Caprini VTE Risk Assessment Caprini VTE Risk Assessment: Moderate/High Risk (score >= 2) Caprini Risk Assessment Model: Point Value = 1 Point Value = 2 Point Value = 3 Point Value = 5 Age 41-60 Minor surgery BMI > 25 kg/m2 Swollen legs Varicose veins or History of unexplained or recurrent spontaneous Oral contraceptives or hormone replacement Sepsis (< 1 month) Serious lung disease, including pneumonia (< 1 month) Abnormal pulmonary function Acute myocardial infarction Congestive heart failure (< 1 month) History of inflammatory bowel disease Medical patient at bed rest Age 61-74 Arthroscopic surgery Major open surgery (> 45 min) Laparoscopic surgery (> 45 min) Malignancy Confined to bed (> 72 hours) Immobilizing plaster cast Central venous access Age >= 75 History of VTE Family history of VTE Factor V Leiden Prothrombin [id number] Lupus anticoagulant Anticardiolipin antibodies Elevated serum homocysteine Heparin-induced thrombocytopenia Other congenital or acquired thrombophilia Stroke (< 1 month) Elective arthroplasty Hip, pelvis, or leg fracture Acute spinal cord injury (< 1 month) Prophylaxis Regimen: Total Risk Factor Score Risk Level Prophylaxis Regimen 0-1 Low Early ambulation 2 Moderate Order ONE of the following: *Sequential Compression Device (SCD) *Heparin 5000 units SQ BID 3-4 Higher Order ONE of the following medications: *Heparin 5000 units SQ TID *Enoxaparin/Lovenox 40 mg SQ daily (WT < 150 kg, CrCl > 30 mL/min) *Enoxaparin/Lovenox 30 mg SQ daily (WT < 150 kg, CrCl > 10-29 mL/min) *Enoxaparin/Lovenox 30 mg SQ BID (WT < 150 kg, CrCl > 30 mL/min) AND/OR *Sequential Compression Device (SCD) 5 or more Highest Order ONE of the following medications: *Heparin 5000 units SQ TID (Preferred with Epidurals) *Enoxaparin/Lovenox 40 mg SQ daily (WT < 150 kg, CrCl > 30 mL/min) *Enoxaparin/Lovenox 30 mg SQ daily (WT < 150 kg, CrCl > 10-29 mL/min) *Enoxaparin/Lovenox 30 mg SQ BID (WT < 150 kg, CrCl > 30 mL/min) AND *Sequential Compression Device (SCD) Assessment and Plan - Assessment (1) Sepsis Code(s): A41.9 - Sepsis, unspecified organism Status: Acute Plan: Patient met sepsis criteria on admission with white count of 21.5, tachycardia of 90, and evidence of pneumonia on chest x-ray -Blood cultures drawn -Lactic acid pending -Urinalysis with reflex culture and sensitivity as indicated -IV fluids normal saline 50 mL's per hour, cautious hydration as patient has CHF with EF of 25%. He may need more fluids depending on how things go -Antibiotics: Rocephin and azithromycin. He lives in an assisted living with only 3 other residents/patients. There is a child care aide who stays with them and a manager maintenance so there are only 6 people total that live at his house. This does not qualify as a healthcare associated pneumonia because there is no antibiotics this is in a large halfway or any other environment like that. Evidently the manager maintenance that states there had a cold and passed it on to the other people and it is assumed that our patient developed initially an upper respiratory infection caught from other residents or 1 of the workers. -Follow-up blood cultures and lactic acid (2) Community acquired pneumonia Code(s): J18.9 - Pneumonia, unspecified organism Status: Acute Plan: After discussion with the service coordinator elderly facility the diagnosis of community-acquired pneumonia was made based on there being no IV antibiotics and no sort of clinical setting to his home environment. -Azithromycin 500 mg daily -Rocephin 2 g daily -Duo nebs every 6 -Albuterol every 4 as needed -Prednisone 40 mg daily He is already improved clinically as far as his breathing and overall appearance compared to yesterday. (3) COPD (chronic obstructive pulmonary disease) Code(s): J44.9 - Chronic obstructive pulmonary disease, unspecified Status: Acute Plan: Patient does not require oxygen at home -Management of community acquired pneumonia/COPD exacerbation as above He does have a history of COPD. I do wonder if this gentleman has some underlying pulmonary fibrosis. His exam with scattered coarse breath sounds is consistent with pulmonary fibrosis and when looking back at his prior chest x- rays he does not look like he has some interstitial disease at least as a possibility. (4) GI bleed Code(s): K92.2 - Gastrointestinal hemorrhage, unspecified Status: Acute Plan: Hemoccult-positive in ED, unknown colonoscopy history -Hemoglobin stable at 16.6 -GI consulted, appreciate recommendations -We will hold any anticoagulation for now He is extremely ill with his pneumonia and agree with GI at least postponing if not completely deferring a workup. His sister has power of fermentation operator and would need to be the one to decide about any workup at this point will check his H&H is to be sure that he is not losing blood. (5) Hypothyroid Code(s): E03.9 - Hypothyroidism, unspecified Status: Acute Plan: Continue home levothyroxine (6) CHF (congestive heart failure) Code(s): I50.9 - Heart failure, unspecified Status: Acute Plan: -Cautious hydration for sepsis with monitoring of shortness of breath -Daily weights -Resume home spironolactone -Limit p.o. fluid intake to 1.5 L per day We will need to increase his fluids as his CK is elevated at this time. (7) EDWIN (acute kidney injury) Code(s): N17.9 - Acute kidney failure, unspecified Status: Acute Plan: -Gentle hydration with normal saline 50 mils per hour as patient has CHF -Repeat BMP in a.m. (8) Dementia Code(s): F03.90 - Unspecified dementia without behavioral disturbance Status: Acute Plan: Continue home donepezil (9) Dyslipidemia Code(s): E78.5 - Hyperlipidemia, unspecified Status: Acute Plan: Continue home Lipitor (10) Bipolar 1 disorder Code(s): F31.9 - Bipolar disorder, unspecified Status: Acute Plan: Continue home risperidone (11) Nutrition, metabolism, and development symptoms Code(s): R63.8 - Other symptoms and signs concerning food and fluid intake Status: Acute Plan: Diet: Regular adult diet Fluids: Gentle hydration 50 mls per hour NS DVT prophylaxis: SCDs only for now pending GI workup, can reconsider as he is not to be getting any endoscopies however if he did have coffee ground emesis there is no way that we want to contribute to any bleeding in this frail elderly gentleman. - Assessment and Plan Questions should be referred to brother aRjesh Walker [phone] If unable to reach him can contact Shivani (SARA) [phone] (1) Sepsis Qualifiers: Sepsis type: sepsis due to unspecified organism Qualified Code(s): A41.9 - Sepsis, unspecified organism (2) Community acquired pneumonia Qualifiers: Laterality: left (3) COPD (chronic obstructive pulmonary disease) Qualifiers: Chronic bronchitis type: unspecified (6) CHF (congestive heart failure) Qualifiers: Heart failure type: unspecified Heart failure chronicity: chronic Qualified Code(s): I50.9 - Heart failure, unspecified (8) Dementia Qualifiers: Dementia type: Alzheimer's disease Alzheimer's disease onset: late-onset Dementia behavioral disturbance: without behavioral disturbance Qualified Code( s): G30.1 - Alzheimer's disease with late onset; F02.80 - Dementia in other diseases classified elsewhere without behavioral disturbance
[2017-12-02] MEDS ORDERED: Spironolactone 25 MG Tablet PO SCH (09:00)
--- NOTE | 2017-12-02 09:20 | XR ---
EXAM DATE: 12/02/2017 9:01 AM EDT AGE/SEX: 71 years / Male INDICATIONS: . Pneumonia. Cough. CLINICAL DATA: This is the patient's subsequent encounter. Patient reports that signs and symptoms h ave been present for 2 days and indicates a pain score of 0/10. MEDICAL/SURGICAL HISTORY: Hepatitis. Dementia. Cardiovascular disease Hypertension.COPD CABG. COMPARISON: [facility] [place] 1V SINGLE AP, 12/01/2017. . FINDINGS: The cardiac silhouette is normal in transverse diameter. Median sternotomy wires are present. There i s patchy alveolar disease on the left compatible with edema or pneumonia. There is increasing right p erihilar opacity. No pleural effusions are identified. CONCLUSION: Worsening edema or pneumonia. Electronically signed by: Kodak Liang MD 12/02/2017 9:19 AM EDT
[2017-12-02] MEDS: traZODone 50 MG Tablet PO SCH (09:29)
[2017-12-02] MEDS: predniSONE 20 MG Tablet PO SCH (09:29)
[2017-12-02] MEDS: Senna/Docusate Sodium 8.6/50 MG Tablet PO SCH ×2 (09:31→22:20)
[2017-12-02] MEDS: Sod Chloride 0.9% Inj 1,000 ML IV.CONT SCH ×3 (13:21→23:42)
--- NOTE | 2017-12-02 14:37 | ECG ---
Date Performed: 12/01/2017 Time Performed: 12:52:19 PTAGE: 71 years EKG: SINUS TACHYCARDIA POSSIBLE LEFT ATRIAL ENLARGEMENT ANTEROSEPTAL MYOCARDIAL INFARCTION OF UN DETERMINED AGE Compared to PREVIOUS TRACING , there has been an increase in the anterior ST elevation which may be r elated to the new sinus tachycardia. Clinical correlation will be important. PREVIOUS TRACIN2017 13.15 DOCTOR: Paulina Roa Interpretating Date/Time 12/02/2017 14:35:19
[2017-12-02] MEDS: Azithromycin Inj 500 MG in Sodium Chlor 0.9% Inj 250 ML IV.SIG SCH (18:31)
[2017-12-03] MEDS: Sod Chloride 0.9% Inj 1,000 ML IV.CONT SCH ×2 (05:30→10:32)
[2017-12-03 09:11] LABS: Anion Gap 8 meq/L (5-15); Blood Urea Nitrogen 23 mg/dL (7-18); Calcium 7.9 mg/dL (8.5-10.1); Carbon Dioxide 21.8 meq/L (21.0-32.0); Chloride 113 meq/L (98-107); Glomerular Filtration Rate Greater Than 89 mL/min (>89); Glucose,Random 103 mg/dL (74-106); Potassium 3.9 meq/L (3.5-5.1); Sodium 143 meq/L (136-145)
--- NOTE | 2017-12-03 09:33 | P.PNFP ---
Subjective Interval history: Mr Walker had no acute events overnight. This morning he is attempting to eat his breakfast in bed with the nebulizer headpiece raised over his forehead. Respiratory therapy states he has trouble with compliance as he often pulls off the nasal cannula. There is no increased WOB and he has been afebrile, but he also has an E coli UTI which is pansensitive and covered by current antibiotics. He looks better and sounds better today so we cancelled his lab order for today after he was complaining to the tech that he didn't want blood taken today. This is the first day he has spoken, again a good sign clinically that he is improving. <Robe Talavera III - 12/03/17 11:32> Results - Labs Result diagrams: 12/02/17 05:36 12/03/17 07:30 <Jeni Golden - 12/05/17 09:27> Abnormal lab results 12/01/17 12/03/17 Range/Units 18:00 07:30 Chloride 113 H (98-107) meq/L BUN 23 H (7-18) mg/dL Calcium 7.9 L (8.5-10.1) mg/dL Urine Clarity Cloudy H (Clear) Urine Ketones Trace H (Negative) mg/dL Urine Occult Blood Moderate H (Negative) Urine WBC 6 H (0-5) /hpf Amorphous Sediment Rare H (None) /hpf Urine Bacteria Rare H (None) /hpf Urine Mucus Few H (Occasional) /lpf BMP 12/03/17 07:30 Sodium 143 Potassium 3.9 Chloride 113 H Carbon Dioxide 21.8 BUN 23 H Creatinine 0.64 Calcium 7.9 L Urine 12/01/17 Range/Units 18:00 Urine Color Yellow (Yellw/Straw) Urine Clarity Cloudy H (Clear) Urine pH 5.0 (5.0-8.5) Ur Specific [place] 1.024 (1.002-1.035) Urine Protein Negative (Neg-Trace) mg/dL Urine Glucose (UA) 500 or greater (Negative) mg/dL <Ilan SOLISRobe Olivia - 12/03/17 09:32> Physical Exam Vital signs: Vital Signs 12/04/17 11:14 12/04/17 11:53 12/04/17 16:00 Temperature 98.0 F 98 F Pulse Rate 81 81 79 Respiratory Rate 12 18 20 Blood Pressure 133/83 120/65 Pulse Oximetry 94 L 96 Pulse Oximetry [Exertion on Room Air] 82 L Pulse Oximetry [Exertion with Oxygen] 93 L Pulse Oximetry [Resting on Room Air] 94 L Pulse Oximetry [Resting with Oxygen] 98 12/04/17 20:00 12/04/17 21:23 12/05/17 00:00 Temperature 98.2 F 97.8 F Pulse Rate 95 H 123 H 62 Respiratory Rate 18 22 18 Blood Pressure 126/91 H 112/67 Pulse Oximetry 93 L 96 Pulse Oximetry [Exertion on Room Air] Pulse Oximetry [Exertion with Oxygen] Pulse Oximetry [Resting on Room Air] Pulse Oximetry [Resting with Oxygen] 12/05/17 04:00 12/05/17 05:23 12/05/17 08:00 Temperature 97.7 F Pulse Rate 88 98 H Respiratory Rate 18 22 Blood Pressure 161/69 H Pulse Oximetry 93 L 95 Pulse Oximetry [Exertion on Room Air] Pulse Oximetry [Exertion with Oxygen] Pulse Oximetry [Resting on Room Air] Pulse Oximetry [Resting with Oxygen] 12/05/17 09:04 Temperature Pulse Rate 69 Respiratory Rate 16 Blood Pressure Pulse Oximetry 93 L Pulse Oximetry [Exertion on Room Air] Pulse Oximetry [Exertion with Oxygen] Pulse Oximetry [Resting on Room Air] Pulse Oximetry [Resting with Oxygen] Intake & Output 12/04/17 12/05/17 12/05/17 18:59 06:59 18:59 Intake Total 720 / 720 Output Total 100 / 100 Balance 620 / 620 Weight 60 kg Intake: Oral 720 / 720 Output: Urine 100 / 100 Other: # Voids 3 Date of Last Bowel Movement 12/03/17 12/04/17 <Jeni Golden - 12/05/17 09:27> Vital Signs 12/02/17 12:00 12/02/17 12:01 12/02/17 15:49 Temperature 98.1 F 97.9 F Pulse Rate 81 78 79 Respiratory Rate 16 16 18 Blood Pressure 116/68 129/68 Pulse Oximetry 94 L 93 L 12/02/17 16:06 12/02/17 20:00 12/02/17 20:09 Temperature 98.2 F Pulse Rate 81 85 84 Respiratory Rate 18 18 16 Blood Pressure 118/61 Pulse Oximetry 97 96 12/02/17 22:10 12/03/17 00:00 12/03/17 04:00 Temperature 98.0 F 98.1 F Pulse Rate 80 72 Respiratory Rate 18 18 Blood Pressure 100/57 L 120/64 Pulse Oximetry 98 95 95 12/03/17 08:00 12/03/17 08:46 Temperature 97.5 F L Pulse Rate 71 71 Respiratory Rate 18 18 Blood Pressure 104/61 Pulse Oximetry 93 L 93 L Intake & Output 12/02/17 12/03/17 12/03/17 18:59 06:59 18:59 Intake Total 1480 / 1480 1350 / 1350 1000 / 1000 Balance 1480 / 1480 1350 / 1350 1000 / 1000 Weight 60 kg Intake: IV 1000 / 1000 1350 / 1350 1000 / 1000 NS Inj 1,000 ML @ 100 mls/hr IV 1000 / 1000 1000 / 1000 .CONT .Q10H ARELI Rx#:[id number] Azithromycin Inj 500 MG In NS 250 / 250 Inj 250 ML @ 250 mls/hr IV.SIG Q24H ARELI Rx#:[id number] Rocephin Inj 2,000 MG In NS Inj 100 / 100 100 ML @ 200 mls/hr IV.SIG Q24H AREIL Rx#:[id number] Oral 480 / 480 Other: # Incontinent Voids 1 1 Date of Last Bowel Movement 12/01/17 12/02/17 <Ilan Robe SOLIS H - 12/03/17 09:32> Narrative: GENERAL: Elderly demented gentleman who is trying to butter his biscuit in bed. He appears improved on today's exam compared to when he was admitted SKIN: Warm and dry. Skin has scratch patel self-inflicted on his arm left thigh and elsewhere. HEAD: Atraumatic. Normocephalic. EYES: Pupils equal and round. No scleral icterus. No injection or drainage. ENT: No nasal bleeding or discharge. Mucous membranes pink and moist. NECK: Trachea midline. CARDIOVASCULAR: Regular rate and rhythm. Distant heart sounds as they are overwhelmed by his respiratory exam RESPIRATORY: No accessory muscle use. Mild rhonchi bilaterally, louder on the left side, no rales, sounding much better with occasional wheezing. Coarse upper airway sounds louder than the rhonchi and wheezing. GASTROINTESTINAL: Abdomen soft, non-tender, nondistended. MUSCULOSKELETAL: Extremities without clubbing, cyanosis, or edema. No obvious deformities. NEUROLOGICAL: Awake and alert. No obvious cranial nerve deficits. Motor grossly within normal limits. Five out of 5 muscle strength in the arms and legs. Was complaining to the per diem rn above getting blood taken--the first words we have heard him speak. More interactive with medical staff today. PSYCHIATRIC: Does not have the capacity to make decisions his sister is power of commonwealth attorney <Robe Talavera III - 12/03/17 11:32> - Urinary Catheter Management Straight Cath placed during this visit: no <Jeni Golden - 12/05/17 09:27> yes, but has since been removed by the nurse <Robe Talavera III - 12/03/17 11:32> Reason for continuing: Not indwelling catheter <Robe Talavera III - 12/03/17 09:32> Insertion date: 12/01/17 <Robe Talavera III - 12/03/17 09:32> Insertion time: 18:31 <Robe Talavera III - 12/03/17 09:32> Removal date: 12/01/17 <Robe Talavera III - 12/03/17 09:32> Removal time: 18:31 <Robe Talavera III - 12/03/17 09:32> Assessment and Plan - Assessment (1) Sepsis Code(s): A41.9 - Sepsis, unspecified organism Status: Acute Plan: This problem has resolved. Patient met sepsis criteria on admission with white count of 21.5, tachycardia of 90, and evidence of pneumonia on chest x-ray and UTI on UA; WBC reduced to 16.5 on 12/02; we deferred his lab draw for today as he is clinically improving. -Blood cultures NGTD x2 days -Lactic acidosis resolved -UA positive for E coli UTI pansensitive -CK and CKMB resolving (2) Community acquired pneumonia Code(s): J18.9 - Pneumonia, unspecified organism Status: Acute Plan: After discussion with the [facility] psychiatrist the diagnosis of community-acquired pneumonia was made based on there being no IV antibiotics and no sort of clinical setting to his home environment. -Azithromycin 500 mg IV daily -Rocephin 2 g IV daily -Duo nebs q6h -Albuterol q4h PRN -Prednisone 40 mg daily x5 days (today is day 3/5) -Pulmicort q12h due to pt's poor/intermittent compliance with nebulizer and nasal cannula use -Pt is clinically improving -PT eval and treat -OOB to chair 2-3x daily (3) COPD (chronic obstructive pulmonary disease) Code(s): J44.9 - Chronic obstructive pulmonary disease, unspecified Status: Acute Plan: Patient does not require oxygen at home -Management of community acquired pneumonia/COPD exacerbation as above -Comparing CXR to priors, pt likely has underlying pulmonary fibrosis -Consider pulmonology consult as outpt if family desires (4) GI bleed Code(s): K92.2 - Gastrointestinal hemorrhage, unspecified Status: Acute Plan: Hemoccult-positive in ED, unknown colonoscopy history -Hemoglobin stable at 13.7, was on IVF -BUN elevation resolving -GI consulted and they recommended deferring any workup due to pt condition -We agree with GI at least postponing if not completely deferring a workup. -Yesterday he was hemodynamically stable and this morning pt complained about getting an additional blood draw, so we deferred as there are no signs of GI bleed at this time. His sister has power of commonwealth attorney and would need to be the one to decide about any workup at this point will check his H&H is to be sure that he is not losing blood. (5) Hypothyroid Code(s): E03.9 - Hypothyroidism, unspecified Status: Acute Plan: Continue home levothyroxine (6) CHF (congestive heart failure) Code(s): I50.9 - Heart failure, unspecified Status: Acute Plan: -Daily weights -Resume home spironolactone -Discontinue MIVF today and nursing order for 2.5 L of fluid intake daily -There are no crackles or signs of fluid overload today (7) EDWIN (acute kidney injury) Code(s): N17.9 - Acute kidney failure, unspecified Status: Acute Plan: Pt has responded well to IVF hydration and this problem has resolved. Cr 12/03 is 0.64 -Repeat BMP in a.m. (8) Dementia Code(s): F03.90 - Unspecified dementia without behavioral disturbance Status: Acute Plan: Continue home donepezil (9) Dyslipidemia Code(s): E78.5 - Hyperlipidemia, unspecified Status: Acute Plan: Continue home Lipitor (10) Bipolar 1 disorder Code(s): F31.9 - Bipolar disorder, unspecified Status: Acute Plan: Continue home risperidone (11) Nutrition, metabolism, and development symptoms Code(s): R63.8 - Other symptoms and signs concerning food and fluid intake Status: Acute Plan: Diet: Regular adult diet Fluids: stop MIVF, nursing order to ensure 2.5 L PO fluids daily DVT prophylaxis: SCDs only <Robe Talavera III - 12/03/17 11:08> (1) Community acquired pneumonia Code(s): J18.9 - Pneumonia, unspecified organism Status: Acute <Jeni Golden - 12/05/17 09:27> - Assessment and Plan Dispo: possibly 12/04 if continued improvement Questions should be referred to brother Rajesh Walker [phone] If unable to reach him can contact Shivani ([facility]) [phone] <Robe Talavera III - 12/03/17 11:32> - Attending Attestation The exam, history, and the medical decision-making described in the above note were completed with the assistance of the resident physician. I reviewed and agree with the findings presented. I attest that I had a [id number] encounter with the patient on the same day, and personally performed and documented my assessment and findings in the medical record. he is improving daily and able to mentate better <Jeni Golden - 12/05/17 09:27> <Robe Talavera III - Last Filed: 12/03/17 11:08> (1) Sepsis Qualifiers: Sepsis type: sepsis due to unspecified organism Qualified Code(s): A41.9 - Sepsis, unspecified organism (2) Community acquired pneumonia Qualifiers: Laterality: left (3) COPD (chronic obstructive pulmonary disease) Qualifiers: Chronic bronchitis type: unspecified (6) CHF (congestive heart failure) Qualifiers: Heart failure type: unspecified Heart failure chronicity: chronic Qualified Code(s): I50.9 - Heart failure, unspecified (8) Dementia Qualifiers: Dementia type: Alzheimer's disease Alzheimer's disease onset: late-onset Dementia behavioral disturbance: without behavioral disturbance Qualified Code( s): G30.1 - Alzheimer's disease with late onset; F02.80 - Dementia in other diseases classified elsewhere without behavioral disturbance <Jeni Golden - Last Filed: 12/05/17 09:27> (1) Community acquired pneumonia Qualifiers: Laterality: left <Robe Talavera III H - Last Filed: 12/03/17 11:08> (1) Sepsis Qualifiers: Sepsis type: sepsis due to unspecified organism Qualified Code(s): A41.9 - Sepsis, unspecified organism (2) Community acquired pneumonia Qualifiers: Laterality: left (3) COPD (chronic obstructive pulmonary disease) Qualifiers: Chronic bronchitis type: unspecified (6) CHF (congestive heart failure) Qualifiers: Heart failure type: unspecified Heart failure chronicity: chronic Qualified Code(s): I50.9 - Heart failure, unspecified (8) Dementia Qualifiers: Dementia type: Alzheimer's disease Alzheimer's disease onset: late-onset Dementia behavioral disturbance: without behavioral disturbance Qualified Code( s): G30.1 - Alzheimer's disease with late onset; F02.80 - Dementia in other diseases classified elsewhere without behavioral disturbance <Jeni Golden - Last Filed: 12/05/17 09:27> (1) Community acquired pneumonia Qualifiers: Laterality: left
[2017-12-03 09:34] LABS: Creatine Kinase 1091 U/L (39-308)
[2017-12-03 09:57] LABS: CKMB Percent 0.5 % (0.0-4.0); Creatine Kinase MB 5.1 ng/mL (0.5-3.6)
[2017-12-03] MEDS: predniSONE 20 MG Tablet PO SCH (10:32)
[2017-12-03] MEDS: traZODone 50 MG Tablet PO SCH (10:32)
[2017-12-03] MEDS: Senna/Docusate Sodium 8.6/50 MG Tablet PO SCH (10:32)
[2017-12-03] MEDS: Azithromycin Inj 500 MG in Sodium Chlor 0.9% Inj 250 ML IV.SIG SCH (16:28)
[2017-12-04] MEDS: Senna/Docusate Sodium 8.6/50 MG Tablet PO SCH ×2 (04:32→09:17)
--- NOTE | 2017-12-04 08:00 | P.PNFP ---
Addendum entered and electronically signed by Diana Diaz MD, R1 12/04/17 08 :43: Physical Exam did not save on prior draft: GENERAL: Elderly demented gentleman lying comfortably in bed. He appears improved on today's exam compared to when he was admitted SKIN: Warm and dry. Skin has scratch patel self-inflicted on his arm left thigh and elsewhere. HEAD: Atraumatic. Normocephalic. EYES: Pupils equal and round. No scleral icterus. No injection or drainage. ENT: No nasal bleeding or discharge. Mucous membranes pink and moist. NECK: Trachea midline. CARDIOVASCULAR: Regular rate and rhythm. Distant heart sounds as they are overwhelmed by his respiratory exam RESPIRATORY: No accessory muscle use. Mild rhonchi bilaterally, louder on the left side, no rales, improved from previous exam. Referred upper airway sounds heard. GASTROINTESTINAL: Abdomen soft, non-tender, nondistended. MUSCULOSKELETAL: Extremities without clubbing, cyanosis, or edema. No obvious deformities. NEUROLOGICAL: Awake and alert. No obvious cranial nerve deficits. Motor grossly within normal limits. Five out of 5 muscle strength in the arms and legs. Was complaining to the returns supervisor above getting blood taken--the first words we have heard him speak. More interactive with medical staff today. PSYCHIATRIC: Does not have the capacity to make decisions his sister is power of turner in Original Note: Subjective Interval history: Mr Walker seen on rounds this morning. His mentation is much improved from his admission mentation. He is able to endorse frustration with being stuck for labs this etc. IV access was lost overnight. Patient denies any trouble breathing. Reports cough but is able to sleep. He denies any chest pain, nausea, vomiting, fevers. He is requesting to go home and appears slightly agitated we are keeping her. <iDana Diaz - 12/04/17 08:38> Results - Labs Result diagrams: 12/02/17 05:36 12/03/17 07:30 <Jeni Golden - 12/05/17 09:29> Abnormal lab results 12/01/17 12/03/17 Range/Units 12:10 07:30 Chloride 113 H (98-107) meq/L BUN 23 H (7-18) mg/dL Calcium 7.9 L (8.5-10.1) mg/dL Total Creatine Kinase 1091 H (39-308) U/L CK-MB (CK-2) 5.1 H (0.5-3.6) ng/mL MTS Gel Crossmatch See Detail Short CBC 12/03/17 Range/Units 07:30 WBC Cancelled Hgb Cancelled Hct Cancelled Plt Count Cancelled BMP 12/03/17 07:30 Sodium 143 Potassium 3.9 Chloride 113 H Carbon Dioxide 21.8 BUN 23 H Creatinine 0.64 Calcium 7.9 L Cardiac Enzymes 12/03/17 Range/Units 07:30 Total Creatine Kinase 1091 H (39-308) U/L CK-MB (CK-2) 5.1 H (0.5-3.6) ng/mL <Diana Diaz - 12/04/17 08:00> Physical Exam Vital signs: Vital Signs 12/04/17 11:14 12/04/17 11:53 12/04/17 16:00 Temperature 98.0 F 98 F Pulse Rate 81 81 79 Respiratory Rate 12 18 20 Blood Pressure 133/83 120/65 Pulse Oximetry 94 L 96 Pulse Oximetry [Exertion on Room Air] 82 L Pulse Oximetry [Exertion with Oxygen] 93 L Pulse Oximetry [Resting on Room Air] 94 L Pulse Oximetry [Resting with Oxygen] 98 12/04/17 20:00 12/04/17 21:23 12/05/17 00:00 Temperature 98.2 F 97.8 F Pulse Rate 95 H 123 H 62 Respiratory Rate 18 22 18 Blood Pressure 126/91 H 112/67 Pulse Oximetry 93 L 96 Pulse Oximetry [Exertion on Room Air] Pulse Oximetry [Exertion with Oxygen] Pulse Oximetry [Resting on Room Air] Pulse Oximetry [Resting with Oxygen] 12/05/17 04:00 12/05/17 05:23 12/05/17 08:00 Temperature 97.7 F Pulse Rate 88 98 H Respiratory Rate 18 22 Blood Pressure 161/69 H Pulse Oximetry 93 L 95 Pulse Oximetry [Exertion on Room Air] Pulse Oximetry [Exertion with Oxygen] Pulse Oximetry [Resting on Room Air] Pulse Oximetry [Resting with Oxygen] 12/05/17 09:04 Temperature Pulse Rate 69 Respiratory Rate 16 Blood Pressure Pulse Oximetry 93 L Pulse Oximetry [Exertion on Room Air] Pulse Oximetry [Exertion with Oxygen] Pulse Oximetry [Resting on Room Air] Pulse Oximetry [Resting with Oxygen] Intake & Output 12/04/17 12/05/17 12/05/17 18:59 06:59 18:59 Intake Total 720 / 720 Output Total 100 / 100 Balance 620 / 620 Weight 60 kg Intake: Oral 720 / 720 Output: Urine 100 / 100 Other: # Voids 3 Date of Last Bowel Movement 12/03/17 12/04/17 <Jeni Golden - 12/05/17 09:29> Vital Signs 12/03/17 08:00 12/03/17 08:46 12/03/17 12:00 Temperature 97.5 F L 98.2 F Pulse Rate 71 71 70 Respiratory Rate 18 18 14 Blood Pressure 104/61 113/64 Pulse Oximetry 93 L 93 L 95 12/03/17 16:00 12/03/17 19:20 12/03/17 20:00 Temperature 98.2 F 97.6 F Pulse Rate 80 71 93 H Respiratory Rate 20 18 Blood Pressure 127/65 155/87 H Pulse Oximetry 94 L 92 L 12/03/17 22:15 12/03/17 22:18 12/04/17 00:00 Temperature 98 F Pulse Rate 79 78 Respiratory Rate 16 18 Blood Pressure 118/63 Pulse Oximetry 93 L 92 L 12/04/17 04:00 Temperature 97.6 F Pulse Rate 80 Respiratory Rate 18 Blood Pressure 132/80 Pulse Oximetry 94 L Intake & Output 12/03/17 12/04/17 12/04/17 18:59 06:59 18:59 Intake Total 1250 / 1250 Balance 1250 / 1250 Intake: IV 1250 / 1250 Azithromycin Inj 500 MG In NS 250 / 250 Inj 250 ML @ 250 mls/hr IV.SIG Q24H [facility] Rx#:[id number] Other: Date of Last Bowel Movement 12/03/17 # Bowel Movements 1 <Diana Diaz 12/04/17 08:00> - Urinary Catheter Management Straight Cath placed during this visit: no <Jeni Golden - 12/05/17 09:29> yes, but has since been removed by the nurse <Diana Diaz 12/04/17 08:38> Reason for continuing: Not indwelling catheter <Diana Diaz 12/04/17 08:00 > Insertion date: 12/01/17 <Diana Diaz - 12/04/17 08:00> Insertion time: 18:31 <Diana Diaz - 12/04/17 08:00> Removal date: 12/01/17 <Diana Diaz - 12/04/17 08:00> Removal time: 18:31 <Diana Diaz - 12/04/17 08:00> Assessment and Plan - Assessment (1) Sepsis Code(s): A41.9 - Sepsis, unspecified organism Status: Acute Plan: This problem has resolved. Patient met sepsis criteria on admission with white count of 21.5, tachycardia of 90, and evidence of pneumonia on chest x-ray and UTI on UA; WBC reduced to 16.5 on 12/02; lab draws deferred per patient request and he is clinically improving -Blood cultures NGTD x2 days -Lactic acidosis resolved -UA positive for E coli UTI pansensitive -CK and CKMB resolving (2) Community acquired pneumonia Code(s): J18.9 - Pneumonia, unspecified organism Status: Acute Plan: After discussion with the facility service associate the diagnosis of community-acquired pneumonia was made based on there being no IV antibiotics and no sort of clinical setting to his home environment. -S/p 3 days of Azithromycin 500 mg IV daily and Rocephin 2 g IV daily -Transition to po azithromycin today, for total course of 5 days -Walk test ordered today. Patient may be discharged pending results -Duo nebs q6h -Albuterol q4h PRN -Prednisone 40 mg daily x5 days (today is day 3/5) -Pulmicort q12h due to pt's poor/intermittent compliance with nebulizer and nasal cannula use -Pt is clinically improving -PT eval and treat -OOB to chair 2-3x daily (3) COPD (chronic obstructive pulmonary disease) Code(s): J44.9 - Chronic obstructive pulmonary disease, unspecified Status: Acute Plan: Patient does not require oxygen at home -Management of community acquired pneumonia/COPD exacerbation as above -Comparing CXR to priors, pt likely has underlying pulmonary fibrosis (4) GI bleed Code(s): K92.2 - Gastrointestinal hemorrhage, unspecified Status: Acute Plan: Hemoccult-positive in ED, unknown colonoscopy history -Hemoglobin stable at 13.7, was on IVF -No signs of active GI bleed -GI workup deferred due to patient condition -BUN elevation resolving -Pt has been hemodynamically stable, further blood draws deferred per patient request -Patient to follow-up as outpatient His sister has power of turner in and would need to be the one to decide about any workup at this point (5) Hypothyroid Code(s): E03.9 - Hypothyroidism, unspecified Status: Acute Plan: Continue home levothyroxine (6) CHF (congestive heart failure) Code(s): I50.9 - Heart failure, unspecified Status: Acute Plan: -Daily weights -Resume home spironolactone -Limit fluid intake to 2.5L po daily -There are no signs of acute exacerbation (7) EDWIN (acute kidney injury) Code(s): N17.9 - Acute kidney failure, unspecified Status: Acute Plan: Pt has responded well to IVF hydration and this problem has resolved. Cr 12/03 is 0.64 -Repeat BMP deferred per patient request (8) Dementia Code(s): F03.90 - Unspecified dementia without behavioral disturbance Status: Acute Plan: Continue home donepezil (9) Dyslipidemia Code(s): E78.5 - Hyperlipidemia, unspecified Status: Acute Plan: Continue home Lipitor (10) Bipolar 1 disorder Code(s): F31.9 - Bipolar disorder, unspecified Status: Acute Plan: Continue home risperidone (11) Nutrition, metabolism, and development symptoms Code(s): R63.8 - Other symptoms and signs concerning food and fluid intake Status: Acute Plan: Diet: Regular adult diet Fluids: nursing order to ensure 2.5 L PO fluids daily DVT prophylaxis: SCDs only <Diana Diaz - 12/04/17 08:34> (1) Community acquired pneumonia Code(s): J18.9 - Pneumonia, unspecified organism Status: Acute <Jeni Golden - 12/05/17 09:29> - Assessment and Plan Dispo: possibly 12/04 if continued improvement Questions should be referred to brother Rajesh Walker [phone] If unable to reach him can contact Shivani (POA) [phone] <Diana Diaz - 12/04/17 08:00> Discussed Condition With: Dr Golden <Diana Diaz - 12/04/17 08:00> - Attending Attestation The exam, history, and the medical decision-making described in the above note were completed with the assistance of the resident physician. I reviewed and agree with the findings presented. I attest that I had a [id number] encounter with the patient on the same day, and personally performed and documented my assessment and findings in the medical record. he continues to improve. he has some capacity to make decisions and clearly states he wants no labs drawn and wants to leave the hospital. will check his oxygenation status <Jeni Golden - 12/05/17 09:29> <Diana Diaz - Last Filed: 12/04/17 08:34> (1) Sepsis Qualifiers: Sepsis type: sepsis due to unspecified organism Qualified Code(s): A41.9 - Sepsis, unspecified organism (2) Community acquired pneumonia Qualifiers: Laterality: left (3) COPD (chronic obstructive pulmonary disease) Qualifiers: Chronic bronchitis type: unspecified (6) CHF (congestive heart failure) Qualifiers: Heart failure type: unspecified Heart failure chronicity: chronic Qualified Code(s): I50.9 - Heart failure, unspecified (8) Dementia Qualifiers: Dementia type: Alzheimer's disease Alzheimer's disease onset: late-onset Dementia behavioral disturbance: without behavioral disturbance Qualified Code( s): G30.1 - Alzheimer's disease with late onset; F02.80 - Dementia in other diseases classified elsewhere without behavioral disturbance <Jeni Golden - Last Filed: 12/05/17 09:29> (1) Community acquired pneumonia Qualifiers: Laterality: left <Diana Diaz - Last Filed: 12/04/17 08:34> (1) Sepsis Qualifiers: Sepsis type: sepsis due to unspecified organism Qualified Code(s): A41.9 - Sepsis, unspecified organism (2) Community acquired pneumonia Qualifiers: Laterality: left (3) COPD (chronic obstructive pulmonary disease) Qualifiers: Chronic bronchitis type: unspecified (6) CHF (congestive heart failure) Qualifiers: Heart failure type: unspecified Heart failure chronicity: chronic Qualified Code(s): I50.9 - Heart failure, unspecified (8) Dementia Qualifiers: Dementia type: Alzheimer's disease Alzheimer's disease onset: late-onset Dementia behavioral disturbance: without behavioral disturbance Qualified Code( s): G30.1 - Alzheimer's disease with late onset; F02.80 - Dementia in other diseases classified elsewhere without behavioral disturbance <Jeni Golden M - Last Filed: 12/05/17 09:29> (1) Community acquired pneumonia Qualifiers: Laterality: left
[2017-12-04] MEDS: traZODone 50 MG Tablet PO SCH (09:17)
[2017-12-04] MEDS: predniSONE 20 MG Tablet PO SCH (09:17)
--- NOTE | 2017-12-04 12:29 | ECG ---
Date Performed: 12/02/2017 Time Performed: 11:01:19 PTAGE: 71 years EKG: Sinus rhythm ANTEROSEPTAL MYOCARDIAL INFARCTION , OF INDETERMINATE AGE Compared to PREVIOUS TRACING no significant change PREVIOUS TRACIN12/01/2017 12.52 DOCTOR: Kodak Perez Interpretating Date/Time 12/04/2017 12:28:23
[2017-12-04] MEDS: Azithromycin 250 MG Tablet PO SCH (15:16)
[2017-12-05] MEDS ORDERED: Benzonatate 100 MG Capsule PO PRN (05:13)
[2017-12-05] MEDS: Senna/Docusate Sodium 8.6/50 MG Tablet PO SCH ×2 (05:15→08:35)
--- NOTE | 2017-12-05 07:19 | P.DCO ---
- Diagnosis (1) Community acquired pneumonia - Occupational Therapy Order: Evaluate and treat - Home Health Nursing Order: Medical education, Signs/symptoms of disease process, CHF education, Nursing assessment with vital signs - Case Management Consult Yes - Certification I have seen patient Keanu Walker on 12/05/17. My clinical findings support the need for the requested home health care services because: Deconditioned with increased weakness, Limited ability to care for self, Impaired cognition/judgement, High risk of falls I certify that my clinical findings support that this patient is homebound because: Impaired cognitive ability/safety, Unsteady gait/balance (1) Community acquired pneumonia Qualifiers: Laterality: left
[2017-12-05] MEDS: traZODone 50 MG Tablet PO SCH (08:35)
[2017-12-05] MEDS: predniSONE 20 MG Tablet PO SCH (08:35)
--- NOTE | 2017-12-05 08:38 | P.PNFP ---
Subjective Interval history: Mr Walker was seen on morning. He was sleeping in bed, and is still sleepy and minimally communicative. He denies any cough, difficulty breathing, nausea, vomiting. He is ready to go home today. Results - Labs Result diagrams: 12/02/17 05:36 12/03/17 07:30 Physical Exam Vital signs: Vital Signs 12/04/17 08:52 12/04/17 11:14 12/04/17 11:53 Temperature 98.0 F Pulse Rate 72 81 81 Respiratory Rate 12 12 18 Blood Pressure 133/83 Pulse Oximetry 94 L 94 L Pulse Oximetry [Exertion on Room Air] 82 L Pulse Oximetry [Exertion with Oxygen] 93 L Pulse Oximetry [Resting on Room Air] 94 L Pulse Oximetry [Resting with Oxygen] 98 12/04/17 16:00 12/04/17 20:00 12/04/17 21:23 Temperature 98 F 98.2 F Pulse Rate 79 95 H 123 H Respiratory Rate 20 18 22 Blood Pressure 120/65 126/91 H Pulse Oximetry 96 93 L Pulse Oximetry [Exertion on Room Air] Pulse Oximetry [Exertion with Oxygen] Pulse Oximetry [Resting on Room Air] Pulse Oximetry [Resting with Oxygen] 12/05/17 00:00 12/05/17 04:00 12/05/17 05:23 Temperature 97.8 F 97.7 F Pulse Rate 62 88 98 H Respiratory Rate 18 18 22 Blood Pressure 112/67 161/69 H Pulse Oximetry 96 93 L Pulse Oximetry [Exertion on Room Air] Pulse Oximetry [Exertion with Oxygen] Pulse Oximetry [Resting on Room Air] Pulse Oximetry [Resting with Oxygen] Intake & Output 12/04/17 12/05/17 12/05/17 18:59 06:59 18:59 Intake Total 720 / 720 Output Total 100 / 100 Balance 620 / 620 Weight 60 kg Intake: Oral 720 / 720 Output: Urine 100 / 100 Other: # Voids 3 Date of Last Bowel Movement 12/03/17 Narrative: GENERAL: Elderly demented gentleman sleeping in bed. CARDIOVASCULAR: Regular rate and rhythm. Heart sounds difficult to auscultate due to coarse referred upper airway sounds RESPIRATORY: No accessory muscle use. Isolated rhonchi left base. No rales. Referred coarse upper airway sounds. Improved from yesterday's exam. GASTROINTESTINAL: Abdomen soft, non-tender, nondistended. Bowel sounds present MUSCULOSKELETAL: Extremities without clubbing, cyanosis, or edema. No obvious deformities. - Urinary Catheter Management Straight Cath placed during this visit: yes, but has since been removed by the nurse Reason for continuing: Not indwelling catheter Insertion date: 12/01/17 Insertion time: 18:31 Removal date: 12/01/17 Removal time: 18:31 Assessment and Plan - Assessment (1) Community acquired pneumonia Code(s): J18.9 - Pneumonia, unspecified organism Status: Acute Plan: After discussion with the facility assistant the diagnosis of community-acquired pneumonia was made based on there being no IV antibiotics and no sort of clinical setting to his home environment. -S/p 3 days of Azithromycin 500 mg IV daily and Rocephin 2 g IV daily -Day 5 azithromycin, will not require antibiotics on discharge -Walk test ordered. Patient may be discharged pending results -Duo nebs q6h -Albuterol q4h PRN -Status post 5 day course prednisone 40 mg daily -Pulmicort q12h due to pt's poor/intermittent compliance with nebulizer and nasal cannula use -Pt is clinically improving -PT eval and treat -OOB to chair 2-3x daily (2) Hypothyroid Code(s): E03.9 - Hypothyroidism, unspecified Status: Acute Plan: Continue home levothyroxine (3) COPD (chronic obstructive pulmonary disease) Code(s): J44.9 - Chronic obstructive pulmonary disease, unspecified Status: Acute Plan: Patient does not require oxygen at home -Management of community acquired pneumonia/COPD exacerbation as above -Comparing CXR to priors, pt likely has underlying pulmonary fibrosis (4) CHF (congestive heart failure) Code(s): I50.9 - Heart failure, unspecified Status: Acute Plan: -Daily weights -Resume home spironolactone -Limit fluid intake to 2.5L po daily -There are no signs of acute exacerbation (5) Dementia Code(s): F03.90 - Unspecified dementia without behavioral disturbance Status: Acute Plan: Continue home donepezil (6) Dyslipidemia Code(s): E78.5 - Hyperlipidemia, unspecified Status: Acute Plan: Continue home Lipitor (7) Bipolar 1 disorder Code(s): F31.9 - Bipolar disorder, unspecified Status: Acute Plan: Continue home risperidone (8) Nutrition, metabolism, and development symptoms Code(s): R63.8 - Other symptoms and signs concerning food and fluid intake Status: Acute Plan: Diet: Regular adult diet Fluids: nursing order to ensure 2.5 L PO fluids daily DVT prophylaxis: SCDs only (9) Sepsis Code(s): A41.9 - Sepsis, unspecified organism Status: Acute Plan: This problem has resolved. Patient met sepsis criteria on admission with white count of 21.5, tachycardia of 90, and evidence of pneumonia on chest x-ray and UTI on UA; WBC reduced to 16.5 on 12/02; lab draws deferred per patient request and he is clinically improving -Blood cultures NGTD x2 days -Lactic acidosis resolved -UA positive for E coli UTI pansensitive -CK and CKMB resolving (10) EDWIN (acute kidney injury) Code(s): N17.9 - Acute kidney failure, unspecified Status: Acute Plan: Pt has responded well to IVF hydration and this problem has resolved. Cr 12/03 is 0.64 -Repeat BMP deferred per patient request (11) GI bleed Code(s): K92.2 - Gastrointestinal hemorrhage, unspecified Status: Acute Plan: Hemoccult-positive in ED, unknown colonoscopy history -Hemoglobin stable at 13.7, was on IVF -No signs of active GI bleed -GI workup deferred due to patient condition -BUN elevation resolving -Pt has been hemodynamically stable, further blood draws deferred per patient request -Patient to follow-up as outpatient His sister has power of pattern and chain maker and would need to be the one to decide about any workup at this point - Assessment and Plan Dispo: possibly 12/04 if continued improvement Questions should be referred to brother Rajesh Walker [phone] If unable to reach him can contact Shivani (POA) [phone] Discussed Condition With: Annie Talavera and Antoine (1) Community acquired pneumonia Qualifiers: Laterality: left (3) COPD (chronic obstructive pulmonary disease) Qualifiers: Chronic bronchitis type: unspecified (4) CHF (congestive heart failure) Qualifiers: Heart failure type: unspecified Heart failure chronicity: chronic Qualified Code(s): I50.9 - Heart failure, unspecified (5) Dementia Qualifiers: Dementia type: Alzheimer's disease Alzheimer's disease onset: late-onset Dementia behavioral disturbance: without behavioral disturbance Qualified Code( s): G30.1 - Alzheimer's disease with late onset; F02.80 - Dementia in other diseases classified elsewhere without behavioral disturbance (9) Sepsis Qualifiers: Sepsis type: sepsis due to unspecified organism Qualified Code(s): A41.9 - Sepsis, unspecified organism
--- NOTE | 2017-12-05 08:40 | P.DS ---
<Diana Diaz E - Last Filed: 12/05/17 16:22> Date of admission: 12/01/17 14:02 Primary care physician: [facility] Brief History from admission: Mr Walker is a 71-year-old male with past medical history of dementia who is relatively noncommunicative. History obtained from ED note as well as storage facility rental clerk where he resides. Patient lives at [facility]. 3 days ago patient began to have cough and chest congestion. Today he had a single episode of dark colored posttussive emesis. Associated symptoms are fatigue. Denies fevers or changes in diet. Patient is not on any blood thinners. DS: Diagnosis - Discharge Diagnosis (1) Community acquired pneumonia Status: Acute (2) Hypothyroid Status: Acute (3) COPD (chronic obstructive pulmonary disease) Status: Acute (4) CHF (congestive heart failure) Status: Acute (5) Dementia Status: Acute (6) Dyslipidemia Status: Acute (7) Bipolar 1 disorder Status: Acute (8) Nutrition, metabolism, and development symptoms Status: Acute (9) Sepsis Status: Acute (10) EDWIN (acute kidney injury) Status: Acute (11) GI bleed Status: Acute DS: Summary Hospital Course: Mr Walker is a 71-year-old male with past medical history of dementia who presented from his long-term [facility] with posttussive emesis of dark colored vomitus. On admission on 12/01 to the ED for its found to meet sepsis criteria with white count of 21.5, tachycardia 90 and evidence of pneumonia on chest x- ray as well as lactic acid of 6.4. Hemoccult was positive in ED. Patient was started on treatment for community acquired pneumonia after discussion with the care storage facility rental clerk in which she reported there only for residence at the home. GI was consulted but due to patient's clinical status they elected not to do workup at the time, primary team agreed. H&H was stable, patient did not appear to be hemodynamically compromised. Lactic acidosis resolved. Patient continued to clinically improve. Mentation falcon he was able to endorse frustration with being in the hospital and being stuck with needles. Lung exam was much improved from admission as well. Patient continued to clinically improve and was DC'd home back to his care facility on 12/05 with home health - Time Spent with Patient Total time spent providing and/or coordinating discharge services: Less than 30 minutes Exam Vital signs: Vital Signs 12/04/17 08:52 12/04/17 11:14 12/04/17 11:53 Temperature 98.0 F Pulse Rate 72 81 81 Respiratory Rate 12 12 18 Blood Pressure 133/83 Pulse Oximetry 94 L 94 L Pulse Oximetry [Exertion on Room Air] 82 L Pulse Oximetry [Exertion with Oxygen] 93 L Pulse Oximetry [Resting on Room Air] 94 L Pulse Oximetry [Resting with Oxygen] 98 12/04/17 16:00 12/04/17 20:00 12/04/17 21:23 Temperature 98 F 98.2 F Pulse Rate 79 95 H 123 H Respiratory Rate 20 18 22 Blood Pressure 120/65 126/91 H Pulse Oximetry 96 93 L Pulse Oximetry [Exertion on Room Air] Pulse Oximetry [Exertion with Oxygen] Pulse Oximetry [Resting on Room Air] Pulse Oximetry [Resting with Oxygen] 12/05/17 00:00 12/05/17 04:00 12/05/17 05:23 Temperature 97.8 F 97.7 F Pulse Rate 62 88 98 H Respiratory Rate 18 18 22 Blood Pressure 112/67 161/69 H Pulse Oximetry 96 93 L Pulse Oximetry [Exertion on Room Air] Pulse Oximetry [Exertion with Oxygen] Pulse Oximetry [Resting on Room Air] Pulse Oximetry [Resting with Oxygen] Intake & Output 12/04/17 12/05/17 12/05/17 18:59 06:59 18:59 Intake Total 720 / 720 Output Total 100 / 100 Balance 620 / 620 Weight 60 kg Intake: Oral 720 / 720 Output: Urine 100 / 100 Other: # Voids 3 Date of Last Bowel Movement 12/03/17 Results Procedures completed during hospitalization: None Labs on day of discharge: Preliminary micro results at discharge 12/03/17 16:00 Sputum Culture - Preliminary Sputum - Expectorated Sputum Immature growth - reincubate 12/01/17 13:10 Aerobic Blood Culture - Preliminary Blood - Peripheral No growth in 3 days Anaerobic Blood Culture - Preliminary No growth in 3 days 12/01/17 13:15 Aerobic Blood Culture - Preliminary Blood - Peripheral No growth in 3 days Anaerobic Blood Culture - Preliminary No growth in 3 days - Impressions ITS Impressions Chest X-Ray 12/02/17 05:00 CONCLUSION: Worsening edema or pneumonia. <Richie Schultz L - Last Filed: 12/05/17 16:54> Date of admission: 12/01/17 14:02 Primary care physician: [facility] DS: Summary - Time Spent with Patient Total time spent providing and/or coordinating discharge services: Exam Vital signs: Vital Signs 12/04/17 20:00 12/04/17 21:23 12/05/17 00:00 Temperature 98.2 F 97.8 F Pulse Rate 95 H 123 H 62 Respiratory Rate 18 22 18 Blood Pressure 126/91 H 112/67 Pulse Oximetry 93 L 96 Pulse Oximetry [Exertion on Room Air] Pulse Oximetry [Resting on Room Air] Pulse Oximetry [Resting with Oxygen] 12/05/17 04:00 12/05/17 05:23 12/05/17 08:00 Temperature 97.7 F 97.5 F L Pulse Rate 88 98 H 63 Respiratory Rate 18 22 20 Blood Pressure 161/69 H 105/65 Pulse Oximetry 93 L 93 L Pulse Oximetry [Exertion on Room Air] Pulse Oximetry [Resting on Room Air] Pulse Oximetry [Resting with Oxygen] 12/05/17 09:04 12/05/17 10:28 12/05/17 12:00 Temperature 97.4 F L Pulse Rate 69 109 H Respiratory Rate 16 19 Blood Pressure 118/80 Pulse Oximetry 93 L 92 L Pulse Oximetry [Exertion on Room Air] 97 Pulse Oximetry [Resting on Room Air] 90 L Pulse Oximetry [Resting with Oxygen] 93 L 12/05/17 12:19 12/05/17 15:22 Temperature Pulse Rate 78 86 Respiratory Rate 16 16 Blood Pressure Pulse Oximetry Pulse Oximetry [Exertion on Room Air] Pulse Oximetry [Resting on Room Air] Pulse Oximetry [Resting with Oxygen] Intake & Output 12/04/17 12/05/17 12/05/17 18:59 06:59 18:59 Intake Total 720 / 720 Output Total 100 / 100 Balance 620 / 620 Weight 60 kg Intake: Oral 720 / 720 Output: Urine 100 / 100 Other: # Voids 3 Date of Last Bowel Movement 12/03/17 12/04/17 Results Labs on day of discharge: Preliminary micro results at discharge 12/01/17 13:10 Aerobic Blood Culture - Preliminary Blood - Peripheral No growth in 4 days Anaerobic Blood Culture - Preliminary No growth in 4 days 12/01/17 13:15 Aerobic Blood Culture - Preliminary Blood - Peripheral No growth in 4 days Anaerobic Blood Culture - Preliminary No growth in 4 days - Impressions ITS Impressions Chest X-Ray 12/02/17 05:00 CONCLUSION: Worsening edema or pneumonia. Discharge Plan - Discharge Order Discharge Orders: Discharge Order (Routine); Ordered 12/05/17 Ordered By: Diana Diaz - Discharge Details Anticipated Discharge Date: 12/05/17 Discharge Comment: Pending pt passing walk test - Physicians Team Primary Care Provider: [facility] Attending Provider: Richie Schultz Other Providers: Jade Rose MD
--- NOTE | 2017-12-05 14:14 | P.PNGI ---
Subjective Interval history: Patient's resting in the bed denies any type of bleeding no nausea no vomiting Taking small amounts p.o. fluids encouraged him to increase hydration No obvious bleeding <Sheela Magana - Last Filed: 12/05/17 16:26> Physical Exam Vital signs: Vital Signs 12/04/17 16:00 12/04/17 20:00 12/04/17 21:23 Temperature 98 F 98.2 F Pulse Rate 79 95 H 123 H Respiratory Rate 20 18 22 Blood Pressure 120/65 126/91 H Pulse Oximetry 96 93 L Pulse Oximetry [Exertion on Room Air] Pulse Oximetry [Resting on Room Air] Pulse Oximetry [Resting with Oxygen] 12/05/17 00:00 12/05/17 04:00 12/05/17 05:23 Temperature 97.8 F 97.7 F Pulse Rate 62 88 98 H Respiratory Rate 18 18 22 Blood Pressure 112/67 161/69 H Pulse Oximetry 96 93 L Pulse Oximetry [Exertion on Room Air] Pulse Oximetry [Resting on Room Air] Pulse Oximetry [Resting with Oxygen] 12/05/17 08:00 12/05/17 09:04 12/05/17 10:28 Temperature 97.5 F L Pulse Rate 63 69 Respiratory Rate 20 16 Blood Pressure 105/65 Pulse Oximetry 93 L 93 L Pulse Oximetry [Exertion on Room Air] 97 Pulse Oximetry [Resting on Room Air] 90 L Pulse Oximetry [Resting with Oxygen] 93 L 12/05/17 12:00 12/05/17 12:19 Temperature 97.4 F L Pulse Rate 109 H 78 Respiratory Rate 19 16 Blood Pressure 118/80 Pulse Oximetry 92 L Pulse Oximetry [Exertion on Room Air] Pulse Oximetry [Resting on Room Air] Pulse Oximetry [Resting with Oxygen] Intake & Output 12/04/17 12/05/17 12/05/17 18:59 06:59 18:59 Intake Total 720 / 720 Output Total 100 / 100 Balance 620 / 620 Weight 60 kg Intake: Oral 720 / 720 Output: Urine 100 / 100 Other: # Voids 3 Date of Last Bowel Movement 12/03/17 12/04/17 - Urinary Catheter Management Straight Cath placed during this visit: no <Jade Rose - Last Filed: 12/05/17 15:14> Vital signs: Vital Signs 12/04/17 16:00 09/09/18 20:00 12/04/17 21:23 Temperature 98 F 98.2 F Pulse Rate 79 95 H 123 H Respiratory Rate 20 18 22 Blood Pressure 120/65 126/91 H Pulse Oximetry 96 93 L Pulse Oximetry [Exertion on Room Air] Pulse Oximetry [Resting on Room Air] Pulse Oximetry [Resting with Oxygen] 12/05/17 00:00 12/05/17 04:00 12/05/17 05:23 Temperature 97.8 F 97.7 F Pulse Rate 62 88 98 H Respiratory Rate 18 18 22 Blood Pressure 112/67 161/69 H Pulse Oximetry 96 93 L Pulse Oximetry [Exertion on Room Air] Pulse Oximetry [Resting on Room Air] Pulse Oximetry [Resting with Oxygen] 12/05/17 08:00 12/05/17 09:04 12/05/17 10:28 Temperature 97.5 F L Pulse Rate 63 69 Respiratory Rate 20 16 Blood Pressure 105/65 Pulse Oximetry 93 L 93 L Pulse Oximetry [Exertion on Room Air] 97 Pulse Oximetry [Resting on Room Air] 90 L Pulse Oximetry [Resting with Oxygen] 93 L 12/05/17 12:00 12/05/17 12:19 Temperature 97.4 F L Pulse Rate 109 H 78 Respiratory Rate 19 16 Blood Pressure 118/80 Pulse Oximetry 92 L Pulse Oximetry [Exertion on Room Air] Pulse Oximetry [Resting on Room Air] Pulse Oximetry [Resting with Oxygen] Intake & Output 12/04/17 12/05/17 12/05/17 18:59 06:59 18:59 Intake Total 720 / 720 Output Total 100 / 100 Balance 620 / 620 Weight 60 kg Intake: Oral 720 / 720 Output: Urine 100 / 100 Other: # Voids 3 Date of Last Bowel Movement 12/03/17 12/04/17 - Constitutional no acute distress - Routine HEENT Exam Head: Present: normocephalic ENT: Present: mucous membranes dry - Routine Cardiovascular Exam Present: S1, S2 - Routine Abdominal Exam Present: soft (Round,) - Routine Neurological Exam Present: sensory deficit (Poor historian) - Urinary Catheter Management Straight Cath placed during this visit: yes, but has since been removed by the nurse Reason for continuing: Not indwelling catheter Insertion date: 12/01/17 Insertion time: 18:31 Removal date: 12/01/17 Removal time: 18:31 <hCinoSheela Morrison - Last Filed: 12/05/17 16:26> Results - Labs CBC & Chem 7: 12/02/17 05:36 12/03/17 07:30 Microbiology 12/03/17 16:00 Sputum - Expectorated Sputum Gram Stain - Final 12/03/17 16:00 Sputum - Expectorated Sputum Sputum Culture - Final Heavy growth normal respiratory helena 12/01/17 13:10 Blood - Peripheral Aerobic Blood Culture - Preliminary No growth in 4 days 12/01/17 13:10 Blood - Peripheral Anaerobic Blood Culture - Preliminary No growth in 4 days 12/01/17 13:15 Blood - Peripheral Aerobic Blood Culture - Preliminary No growth in 4 days 12/01/17 13:15 Blood - Peripheral Anaerobic Blood Culture - Preliminary No growth in 4 days <Jade Rose - Last Filed: 12/05/17 15:14> - Labs CBC & Chem 7: 12/02/17 05:36 12/03/17 07:30 Microbiology 12/03/17 16:00 Sputum - Expectorated Sputum Gram Stain - Final 12/03/17 16:00 Sputum - Expectorated Sputum Sputum Culture - Final Heavy growth normal respiratory helena 12/01/17 13:10 Blood - Peripheral Aerobic Blood Culture - Preliminary No growth in 4 days 12/01/17 13:10 Blood - Peripheral Anaerobic Blood Culture - Preliminary No growth in 4 days 12/01/17 13:15 Blood - Peripheral Aerobic Blood Culture - Preliminary No growth in 4 days 12/01/17 13:15 Blood - Peripheral Anaerobic Blood Culture - Preliminary No growth in 4 days - Procedures None <Sheela Magana - Last Filed: 12/05/17 16:26> Assessment and Plan - Attending Attestation Seen and examined, plan as above, stable at the current time from GI point of view. <Jade Rose - Last Filed: 12/05/17 15:14> - Plan -Coffee ground emesis/ heme (+) stools- One episode of coffee ground emesis this morning and heme (+) stools. The patient is not on any blood thinners. hgb on arrival is 16 which same as previous labs in apr. Labs revealed ALYSON with high BUN and creat. No hematemesis witnessed since arrival. No melena or hematochezia reported. - ALYSON- possibly due to acute GI bleed - CAP- Chest X-ray showed infiltrates. - Leukocytosis- secondary to above, ? UTI as well - History of COPD, CHF, dementia, coronary artery disease, per attending 12/05/2017 patient initially noted for coffee-ground emesis , gradual improvement no obvious symptoms now patient denies any nausea vomiting minimal appetite encouraged him to increase his hydration and make sure he was having bowel movements. Current hemoglobin 13.7 0n 12/02 2017. No obvious bleeding and seems to be stable from a GI standpoint. Can follow-up in the GI office on an outpatient basis especially if he begins to have any further symptoms of bleeding nausea vomiting or abdominal pain. Patient was seen per myself and Dr. Rose, note was written on his behalf Need to monitor hemoglobin and any labs and support hydration. <Sheela Magana - Last Filed: 12/05/17 16:26>
[2017-12-05] MEDS: Azithromycin 250 MG Tablet PO SCH (14:31)
== END 2017-12-05 16:41 ==
LOC: NEPC 10:25 → NEDA 14:02 → N05 16:10 → NEDA 16:14
PROVIDERS: ADMIT Family Medicine; ATTEND Family Medicine